=== PATIENT | female | born 1930 | race Caucasian/White ===

== ENCOUNTER 2017-07-08 20:16 | Inpatient (IN) | payer MEDICARE ==
[~2017-07-08 20:16] MED LIST: LATA0.002 EACH EYE; LEVO50TA4 PO; TIMO0.5S30 EACH EYE; ZITHTAB PO; morphine pump
[2017-07-08 20:23] VITALS: BP 153/69; PULSE 63; RESP 16; O2SAT 95
[2017-07-08 20:41] VITALS: O2SAT 100
[2017-07-08 20:55] LABS: AUTOMATED NEUTROPHIL # 7.6 TH/MM3 (1.8-7.7); BASOPHIL % 0.3 % (0.0-2.0); EOSINOPHIL # 0.4 TH/MM3 (0-0.4); EOSINOPHIL % 3.8 % (0.0-4.0); HEMATOCRIT 37.6 % (35.0-46.0); HEMOGLOBIN 12.7 GM/DL (11.6-15.3); LYMPH % 14.8 % (9.0-44.0); LYMPHOCYTE # 1.6 TH/MM3 (1.0-4.8); MEAN CELL VOLUME 96.8 FL (80.0-100.0); MEAN CORPUSCULAR HEMOGLOBIN 32.7 PG (27.0-34.0); MEAN CORPUSCULAR HGB CONC 33.8 % (32.0-36.0); MEAN PLATELET VOLUME 6.8 FL (7.0-11.0); MONO % 9.4 % (0.0-8.0); NEUT % 71.7 % (16.0-70.0); PLATELET COUNT 313 TH/MM3 (150-450); RED BLOOD COUNT 3.89 MIL/MM3 (4.00-5.30); RED CELL DISTRIBUTION WIDTH 13.8 % (11.6-17.2); WHITE BLOOD COUNT 10.7 TH/MM3 (4.0-11.0)
[2017-07-08 21:15] LABS: ALKALINE PHOSPHATASE 68 U/L (45-117); TOTAL BILIRUBIN ADULT 0.4 MG/DL (0.2-1.0)
[2017-07-08 21:18] LABS: ALBUMIN 2.8 GM/DL (3.4-5.0); ALT (GPT) 14 U/L (10-53); AST (GOT) 33 U/L (15-37); BICARBONATE 25.3 MEQ/L (21.0-32.0); BLOOD UREA NITROGEN 12 MG/DL (7-18); CALCIUM 8.3 MG/DL (8.5-10.1); CHLORIDE 105 MEQ/L (98-107); CREATININE 0.75 MG/DL (0.50-1.00); GLOMERULAR FILTRATION RATE 73 ML/MIN (>89); GLUCOSE,RANDOM 110 MG/DL (74-106); LIPASE 129 U/L (73-393); SODIUM (NA) 136 MEQ/L (136-145)
--- NOTE | 2017-07-08 21:27 | PD ---
HPI Chief Complaint: Abdominal Pain Time Seen by Provider: 21:25 Travel History International Travel<30 days: No Contact w/Intl Traveler<30days: No Traveled to known affect area: No History of Present Illness HPI 86-year-old female with PMH of chronic back pain 2/2 osteoarthritis, implanted pain pump presents to the ED for evaluation of around 2 hour history of nausea and vomiting. Patient's family is at bedside and helps to provide the history. Patient ate eggs for breakfast but has had little appetite throughout the course of the day. The family endorse several episodes of bilious vomiting before arrival. On presentation the patient complains of nausea but denies fever, chills, chest pain, shortness of breath, abdominal pain, dysuria, changes in bowel habits. She states that she had a bowel movement a few hours before arrival. She describes this as normal, nonbloody. She denies fever, chills, dysuria, hematuria. She denies history of abdominal surgery. PFSH Past Medical History Arthritis: Yes Blood Disorders: No Anxiety: No Heart Rhythm Problems: No Cancer: No Cardiac Catheterization: No Cardiovascular Problems: No High Cholesterol: No Congestive Heart Failure: No Diabetes: No Diminished Hearing: Yes (R EAR) Endocrine: Yes Gastrointestinal Disorders: No Glaucoma: Yes Genitourinary: No Headaches: Yes Heparin Induced Thrombocytopen: No Hypertension: No Immune Disorder: No Implanted Vascular Access Dvce: Yes Musculoskeletal: Yes Neurologic: No Psychiatric: No Reproductive: No Respiratory: No Migraines: Yes Myocardial Infarction: No Thyroid Disease: Yes (hypothyroidism) Menopausal: Yes Past Surgical History AICD: No Appendectomy: Yes ("WHEN I HAD MY HYSTERECTOMY") Arteriovenous Shunt: No Coronary Artery Bypass Graft: No Eye Surgery: Yes (BILATERAL CATARACTS REMOVED) Gynecologic Surgery: Yes (PARTIAL HYSTERECTOMY/APPENDECTOMY) Hysterectomy: Yes ("PARTIAL, IN MY 40'S") Insulin Pump: No Joint Replacement: No Pacemaker: No Other Surgery: Yes ( BILATERALY CORNEA IMPLANTS PER PT) Family History Family Myocardial Infarction: No Social History Alcohol Use: No Tobacco Use: No Substance Use: No Allergies-Medications (Allergen,Severity, Reaction): Coded Allergies: cefuroxime (Unverified Allergy, Severe, 07/08/17) latex (Unverified Allergy, Severe, "RASH", 07/08/17) penicillin G (Unverified Allergy, Severe, "RASH AND HEADACHE", 07/08/17) tetanus toxoid, adsorbed (Unverified Allergy, Severe, PT DOESN'T KNOW, ) hydrocodone (Unverified Allergy, Mild, Nausea/Vomiting, 07/08/17) propoxyphene (Unverified Allergy, Mild, 07/08/17) acetaminophen (Unverified Allergy, Unknown, 07/08/17) pt denies alendronate sodium (Unverified Allergy, Unknown, 07/08/17) cetirizine (Unverified Allergy, Unknown, 07/08/17) ciprofloxacin (Unverified Allergy, Unknown, 07/08/17) nitrofurantoin (Unverified Allergy, Unknown, 07/08/17) oxycodone (Unverified Allergy, Unknown, 07/08/17) pentazocine (Unverified Allergy, Unknown, 07/08/17) Uncoded Allergies: maxaquin (Allergy, Severe, unknown, 02/24/12) nausea & vomiting (Allergy, Intermediate, Nausea/Vomiting, 02/27/12) Reported Meds & Prescriptions Reported Meds & Active Scripts Active Reported [morphine pump] Levothyroxine (Levothyroxine Sodium) 50 Mcg Tab 50 Mcg PO DAILY Latanoprost Opth Drops (Latanoprost) 0.005% Drops 1 Drop EACH EYE HS Refrigerate until opened. Timolol Opth Drops 0.5 % Soln 1 Drop EACH EYE BID Review of Systems Except as stated in HPI: all other systems reviewed are Neg Physical Exam Narrative GENERAL: Frail, ill-appearing elderly white female in no acute distress. SKIN: Focused skin assessment warm/dry. HEAD: Normocephalic. EYES: No scleral icterus. No injection or drainage. NECK: Supple, trachea midline. No JVD or lymphadenopathy. CARDIOVASCULAR: Regular rate and rhythm without murmurs, gallops, or rubs. RESPIRATORY: Breath sounds clear and equal bilaterally. No accessory muscle use. GASTROINTESTINAL: Abdomen soft, nondistended. Tender to palpation in the right upper quadrant. MUSCULOSKELETAL: No cyanosis, or edema. BACK: Kyphotic. No midline tenderness. No CVA tenderness. Data Data Last Documented VS Vital Signs Date Time Temp Pulse Resp B/P (MAP) Pulse Ox O2 Delivery O2 Flow Rate FiO2 07/08/17 20:41 100 Room Air 07/08/17 20:23 63 16 153/69 (97) Orders Orders Complete Blood Count With Diff (07/08/17 20:30) Comprehensive Metabolic Panel (07/08/17 20:30) Urinalysis - C+S If Indicated (07/08/17 20:30) Cath For Specimen (07/08/17 20:30) Iv Access Insert/Monitor (07/08/17 20:30) Oxygen Administration (07/08/17 20:30) Oximetry (07/08/17 20:30) Lipase (07/08/17 20:30) Ct Abd/Pel W Iv Contrast(Rout) (07/08/17 21:23) Ondansetron Inj (Zofran Inj) (07/08/17 21:30) Sodium Chlorid 0.9% 500 Ml Inj (Ns 500 M (07/08/17 21:30) Iohexol 350 Inj (Omnipaque 350 Inj) (07/08/17 22:20) Influenzae A/B Antigen (07/08/17 22:49) Labs Laboratory Tests Test 07/08/17 20:40 07/08/17 22:14 White Blood Count 10.7 TH/MM3 Red Blood Count 3.89 MIL/MM3 Hemoglobin 12.7 GM/DL Hematocrit 37.6 % Mean Corpuscular Volume 96.8 FL Mean Corpuscular Hemoglobin 32.7 PG Mean Corpuscular Hemoglobin Concent 33.8 % Red Cell Distribution Width 13.8 % Platelet Count 313 TH/MM3 Mean Platelet Volume 6.8 FL Neutrophils (%) (Auto) 71.7 % Lymphocytes (%) (Auto) 14.8 % Monocytes (%) (Auto) 9.4 % Eosinophils (%) (Auto) 3.8 % Basophils (%) (Auto) 0.3 % Neutrophils # (Auto) 7.6 TH/MM3 Lymphocytes # (Auto) 1.6 TH/MM3 Monocytes # (Auto) 1.0 TH/MM3 Eosinophils # (Auto) 0.4 TH/MM3 Basophils # (Auto) 0.0 TH/MM3 CBC Comment DIFF FINAL Differential Comment Blood Urea Nitrogen 12 MG/DL Creatinine 0.75 MG/DL Random Glucose 110 MG/DL Total Protein 7.0 GM/DL Albumin 2.8 GM/DL Calcium Level 8.3 MG/DL Alkaline Phosphatase 68 U/L Aspartate Amino Transf (AST/SGOT) 33 U/L Alanine Aminotransferase (ALT/SGPT) 14 U/L Total Bilirubin 0.4 MG/DL Sodium Level 136 MEQ/L Potassium Level 4.5 MEQ/L Chloride Level 105 MEQ/L Carbon Dioxide Level 25.3 MEQ/L Anion Gap 6 MEQ/L Estimat Glomerular Filtration Rate 73 ML/MIN Lipase 129 U/L Urine Color YELLOW Urine Turbidity CLEAR Urine pH 7.0 Urine Specific [place] 1.026 Urine Protein NEG mg/dL Urine Glucose (UA) NEG mg/dL Urine Ketones NEG mg/dL Urine Occult Blood NEG Urine Nitrite NEG Urine Bilirubin NEG Urine Urobilinogen LESS THAN 2.0 MG/DL Urine Leukocyte Esterase NEG Urine RBC 4 /hpf Urine WBC 2 /hpf Urine Mucus FEW /lpf Microscopic Urinalysis Comment CULT NOT INDICATED MDM Medical Decision Making Medical Screen Exam Complete: Yes Emergency Medical Condition: Yes Differential Diagnosis Cholecystitis versus appendicitis versus bowel obstruction versus GERD versus gastroenteritis versus other Narrative Course 86-year-old female with PMH of chronic back pain 2/2 osteoarthritis, implanted pain pump presents to the ED for evaluation of around 2 hour history of nausea and vomiting. Patient's family is at bedside and helps to provide the history. Patient ate eggs for breakfast but has had little appetite throughout the course of the day. The family endorse several episodes of bilious vomiting before arrival. She states that she had a bowel movement a few hours before arrival. She describes this as normal, nonbloody. No history of abdominal surgery. Vitals reviewed. Physical exam reveals a frail, ill appearing elderly white female in no acute distress. She has had some right upper quadrant tenderness but the exam is otherwise unremarkable. IV was established. Patient was administered 4 mg Zofran and 1/2 L normal saline IV. CBC: No leukocytosis or anemia. CMP: BUN 12, creatinine 0.75. UA: No culture indicated. CT abdomen: Mild sigmoid diverticulosis. No acute findings per radiology read. Rapid flu swab: pending On recheck patient states that her nausea has not resolved. Family states that she has not returned to her baseline. Dr. Palomino evaluated the patient. He recommended checking a flu swab and observation overnight. Family is agreeable with this plan. I discussed the patient with Dr. Eastman who agrees to accept the patient to the medicine service. Please see medicine notes for disposition. Referrals: Primary Care Physician Patient Instructions: General Instructions Lyly Marina Jul 08, 2017 21:27
[2017-07-08] MEDS ORDERED: ONDANSETRON HCL 4 MG/2 ML VIAL IVP ONE (21:30)
[2017-07-08] MEDS ORDERED: SODIUM CHLORID 0.9% 500 ML INJ 500 ML IV ONE (21:30)
[2017-07-08] MEDS ORDERED: IOHEXOL 350 MG/ML 10 ML VIAL (for RAD DIAG) IVCONTRAST ONE (22:20)
--- NOTE | 2017-07-08 22:26 | RADRPT ---
EXAM DATE/TIME: 07/08/2017 21:50 [facility] COMPARISON: CT PELVIS W/O CONTRAST, January 25, 2015, 2:52. INDICATIONS : Right upper abdomen pain. IV CONTRAST: 100 cc Omnipaque 350 (iohexol) IV ORAL CONTRAST: No oral contrast ingested. RADIATION DOSE: 9.96 CTDIvol (mGy) MEDICAL HISTORY : Hypothyroidism. SURGICAL HISTORY : Appendectomy. Hysterectomy. ENCOUNTER: Initial ACUITY: 1 day PAIN SCALE: 5/10 LOCATION: Right upper quadrant TECHNIQUE: Volumetric scanning of the abdomen and pelvis was performed. Using automated exposure control and ad justment of the mA and/or kV according to patient size, radiation dose was kept as low as reasonably achievable to obtain optimal diagnostic quality images. DICOM format image data is available electro nically for review and comparison. FINDINGS: LOWER LUNGS: The visualized lower lungs are clear. LIVER: Homogeneous density without lesion. There is no dilation of the biliary tree. No calcified gallston es. SPLEEN: Normal size without lesion. PANCREAS: Largely fatty-replaced but otherwise grossly unremarkable. KIDNEYS: Kidneys demonstrate symmetrical enhancement without evidence for hydronephrosis or be opaque renal ca lculi. Significant renal mass. ADRENAL GLANDS: Within normal limits. VASCULAR: Tortuous with a prostatic calcifications. No aneurysm. BOWEL/MESENTERY: Mild sigmoid diverticulosis. Bowel otherwise appears unremarkable without evidence for obstruction. N o significant free fluid within the fluid collection in the abdomen. ABDOMINAL WALL: Within normal limits. RETROPERITONEUM: There is no lymphadenopathy. BLADDER: No wall thickening or mass. REPRODUCTIVE: There is a 4.0 x 4.2 cm enhancing structure in the expected region of the cervix/distal vagina. Evalu ation is somewhat limited by beam hardening artifact from patient's right hip arthroplasty. More brenda te comparison CT examination does not demonstrate a similar soft tissue density. INGUINAL: There is no lymphadenopathy or hernia. MUSCULOSKELETAL: Right hip arthroplasty in place. Healed pelvic fractures. Significant degenerative change about the l eft hip. Degenerative stenosis of the lumbar spine. CONCLUSION: 1. No acute CT abnormality in the abdomen or pelvis. 2. 4.0 x 4.2 cm enhancing structure in the expected region of the cervix/distal vagina. This is incom pletely evaluated due to streak artifact from adjacent hip arthroplasty. Suspect this represents resi dual tissue in this patient with the history of hysterectomy. Clinical correlation is recommended. 3. Mild sigmoid diverticulosis. 1. Danny Bozorgmanesh, MD on July 08, 2017 at 22:12 Board Certified Radiologist. This report was verified electronically.
[2017-07-08 22:30] LABS: BILIRUBIN, URINE NEG (NEG); BLOOD, URINE NEG (NEG); GLUCOSE,URINE NEG (NEG); KETONE, URINE NEG (NEG); MUCUS URINE FEW /lpf (OCC); NITRITE,URINE NEG (NEG); URINE COLOR YELLOW (YELLW/STRAW); URINE LEUKOCYTE ESTERASE NEG (NEG)
[2017-07-08] MEDS ORDERED: PROCHLORPERAZINE INJ 10 MG/2 ML VIAL IV PUSH ONE (23:15)
[2017-07-08] MEDS ORDERED: SODIUM CHLOR 0.9% 1000 ML INJ 1,000 ML IV SCH (23:15)
--- NOTE | 2017-07-08 23:40 | PD ---
Data Data Last Documented VS Vital Signs Date Time Temp Pulse Resp B/P (MAP) Pulse Ox O2 Delivery O2 Flow Rate FiO2 07/08/17 20:41 100 Room Air 07/08/17 20:23 63 16 153/69 (97) Orders Orders Complete Blood Count With Diff (07/08/17 20:30) Comprehensive Metabolic Panel (07/08/17 20:30) Urinalysis - C+S If Indicated (07/08/17 20:30) Cath For Specimen (07/08/17 20:30) Iv Access Insert/Monitor (07/08/17 20:30) Oxygen Administration (07/08/17 20:30) Oximetry (07/08/17 20:30) Lipase (07/08/17 20:30) Ct Abd/Pel W Iv Contrast(Rout) (07/08/17 21:23) Ondansetron Inj (Zofran Inj) (07/08/17 21:30) Sodium Chlorid 0.9% 500 Ml Inj (Ns 500 M (07/08/17 21:30) Iohexol 350 Inj (Omnipaque 350 Inj) (07/08/17 22:20) Influenzae A/B Antigen (07/08/17 22:49) Admit Order (Ed Use Only) (07/08/17 23:05) Labs Laboratory Tests Test 07/08/17 20:40 07/08/17 22:14 White Blood Count 10.7 TH/MM3 Red Blood Count 3.89 MIL/MM3 Hemoglobin 12.7 GM/DL Hematocrit 37.6 % Mean Corpuscular Volume 96.8 FL Mean Corpuscular Hemoglobin 32.7 PG Mean Corpuscular Hemoglobin Concent 33.8 % Red Cell Distribution Width 13.8 % Platelet Count 313 TH/MM3 Mean Platelet Volume 6.8 FL Neutrophils (%) (Auto) 71.7 % Lymphocytes (%) (Auto) 14.8 % Monocytes (%) (Auto) 9.4 % Eosinophils (%) (Auto) 3.8 % Basophils (%) (Auto) 0.3 % Neutrophils # (Auto) 7.6 TH/MM3 Lymphocytes # (Auto) 1.6 TH/MM3 Monocytes # (Auto) 1.0 TH/MM3 Eosinophils # (Auto) 0.4 TH/MM3 Basophils # (Auto) 0.0 TH/MM3 CBC Comment DIFF FINAL Differential Comment Blood Urea Nitrogen 12 MG/DL Creatinine 0.75 MG/DL Random Glucose 110 MG/DL Total Protein 7.0 GM/DL Albumin 2.8 GM/DL Calcium Level 8.3 MG/DL Alkaline Phosphatase 68 U/L Aspartate Amino Transf (AST/SGOT) 33 U/L Alanine Aminotransferase (ALT/SGPT) 14 U/L Total Bilirubin 0.4 MG/DL Sodium Level 136 MEQ/L Potassium Level 4.5 MEQ/L Chloride Level 105 MEQ/L Carbon Dioxide Level 25.3 MEQ/L Anion Gap 6 MEQ/L Estimat Glomerular Filtration Rate 73 ML/MIN Lipase 129 U/L Urine Color YELLOW Urine Turbidity CLEAR Urine pH 7.0 Urine Specific [place] 1.026 Urine Protein NEG mg/dL Urine Glucose (UA) NEG mg/dL Urine Ketones NEG mg/dL Urine Occult Blood NEG Urine Nitrite NEG Urine Bilirubin NEG Urine Urobilinogen LESS THAN 2.0 MG/DL Urine Leukocyte Esterase NEG Urine RBC 4 /hpf Urine WBC 2 /hpf Urine Mucus FEW /lpf Microscopic Urinalysis Comment CULT NOT INDICATED MDM Supervised Visit with JOSE D: Yes Narrative Course The history, exam, and medical decision-making in the associated mid-level provider note were completed with my assistance. I reviewed and agree with the findings presented. I attest that I had a [id number] encounter with the patient on the same day, and personally performed and documented my assessment and findings in the medical record. *My assessment and Findings: Elderly 86 year-old woman, here with nausea vomiting. Looks a little bit unwell. Still retching some in the room. Initial workups negative. High risk for occult disease. Still symptomatic. Recommend observation. Diagnosis Primary Impression: Nausea & vomiting Qualified Codes: R11.2 - Nausea with vomiting, unspecified Admitting Information Admitting Physician Requests: Observation Referrals: Primary Care Physician Kane Palomino MD Jul 08, 2017 23:40
[2017-07-09 01:33] VITALS: BP 146/66; PULSE 74; RESP 20; TEMP 98.1; O2SAT 94
[2017-07-09 05:56] VITALS: BP 141/74; PULSE 67; RESP 18; TEMP 98.5; O2SAT 95
[2017-07-09 07:14] VITALS: BP 165/76; PULSE 79; RESP 18; TEMP 98.1; O2SAT 95
[2017-07-09] MEDS: LEVOTHYROXINE SODIUM 50 MCG TAB PO SCH (09:10)
--- NOTE | 2017-07-09 09:29 | HHI.HP ---
HPI Service [facility] Hospitalists Primary Care Physician Michael Daigle MD Admission Diagnosis cough, vomiting, diarrhea. Chief Complaint: Cough Travel History International Travel<30 Days: No Contact w/Intl Traveler <30 Da: No Traveled to Known Affected Are: No History of Present Illness Mrs. Rene is a pleasant 86 y/o WF with chronic back pain with Morphine pump implant, hypothyroidism and hyperlipidemia. [place] [facility] [place] of a cough and episodic post-tussive cough. Her daughter provides the majority of the history and she reports that the pt was in her normal state of health up until around 7:00PM last night when she developed a cough. This was not associated with food intake but her daughter reports that the pt does occasionally have issues with choking easily while eating. The pt denies any sore throat, sinus congestion, SOB or palpitations. In the ED there reported that the pts main complaint was that of nausea and vomiting. a CT Abd/ pelvis was ordered which did not she any acute CT abnormality in the abdomen or pelvis. It did note a 4.0 x 4.2 cm enhancing structure in the expected region of the cervix/distal vagina but this was incompletely evaluated due to streak artifact from adjacent hip arthroplasty, suspect this represents residual tissue in this patient with the history of hysterectomy. Pts labs at admission noted a normal WBC count. She has been afebrile. Nursing staff reports that the pt did have some diarrhea overnight and stools were sent for C. diff. The pt has had two BMs since 0700 this morning. The first one was reportedly more formed but the second one was more loose. Pts daughter reports that in late April 2017 the pt was treated for a presumed bronchitis with a Z-ivan x 2. The pt has not had any diarrhea up until last night. She has reportedly been having soft normal BMs. The pt has not had any vomiting overnight and family who has been at bedside since this morning said that the pt isn't really coughing much this morning so far. But she does states that the pt is not acting like her normal self in that she is usually very active and upbeat. Pt has not been interacting much and does not seem to want to move much out of med and her daughter states that this is very unusual for her. Pt complains of some mild abdominal discomfort on the right side of the abdomen but unable to describe this pain to me at all. Stool studies for C. diff are pending. Pt was given IVF and antiemetics in the ED overnight. Review of Systems Constitutional: DENIES: Fever, Chills Eyes: DENIES: Vision loss Ears, nose, mouth, throat: DENIES: Hearing loss Respiratory: COMPLAINS OF: Cough, Sputum production, DENIES: Shortness of breath Cardiovascular: DENIES: Chest pain, Palpitations, Dyspnea on Exertion, Lower Extremity Edema Gastrointestinal: COMPLAINS OF: Abdominal pain, Diarrhea, Vomiting, DENIES: Nausea Genitourinary: DENIES: Urgency, Hematuria Musculoskeletal: COMPLAINS OF: Back pain (chronic) Integumentary: DENIES: Rash Neurologic: DENIES: Headache Psychiatric: DENIES: Confusion Past Family Social History Past Medical History 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 Timolol Opth Drops 0.5 % Soln 1 Drop EACH EYE BID Allergies: Coded Allergies: cefuroxime (Unverified Allergy, Severe, 07/08/17) latex (Unverified Allergy, Severe, "RASH", 07/08/17) penicillin G (Unverified Allergy, Severe, "RASH AND HEADACHE", 07/08/17) tetanus toxoid, adsorbed (Unverified Allergy, Severe, PT DOESN'T KNOW, ) hydrocodone (Unverified Allergy, Mild, Nausea/Vomiting, 07/08/17) propoxyphene (Unverified Allergy, Mild, 07/08/17) acetaminophen (Unverified Allergy, Unknown, 07/08/17) pt denies alendronate sodium (Unverified Allergy, Unknown, 07/08/17) cetirizine (Unverified Allergy, Unknown, 07/08/17) ciprofloxacin (Unverified Allergy, Unknown, 07/08/17) nitrofurantoin (Unverified Allergy, Unknown, 07/08/17) oxycodone (Unverified Allergy, Unknown, 07/08/17) pentazocine (Unverified Allergy, Unknown, 07/08/17) Uncoded Allergies: maxaquin (Allergy, Severe, unknown, 02/24/12) nausea & vomiting (Allergy, Intermediate, Nausea/Vomiting, 02/27/12) Family History Noncontributory Social History No reported tobacco or EtOH use. Pt lives at home with her , her daughter lives with them and takes care of them Pt normally uses a wheelchair to get around because she is scared of falling again but her daughter reports that she is still very active and scoots around the house in the wheel chair, pt helps with cooking and cleaning around the house Physical Exam Vital Signs Vital Signs Date Time Temp Pulse Resp B/P (MAP) Pulse Ox O2 Delivery O2 Flow Rate FiO2 07/09/17 07:14 98.1 79 18 165/76 (105) 95 07/09/17 05:56 98.5 67 18 141/74 (96) 95 07/09/17 01:33 98.1 74 20 146/66 (92) 94 07/08/17 20:41 100 Room Air 07/08/17 20:41 100 Room Air 07/08/17 20:23 63 16 153/69 (97) 95 Physical Exam GENERAL: This is a well-nourished, well-developed patient, in no apparent distress. SKIN: No rashes, ecchymoses or lesions. Cool and dry. HEENT: Atraumatic. Normocephalic. No temporal or scalp tenderness. No scleral icterus. Airway patent. NECK: Trachea midline, supple, nontender. CARDIO: Regular. RESP: Crackles at the bases bilaterally. No wheezing ABD: +BS, soft, non-tender, nondistended. EXT: Extremities without clubbing, cyanosis, or edema. NEURO: Awake and alert. Motor and sensory grossly within normal limits. Normal speech. Laboratory Laboratory Tests Test 07/08/17 20:40 07/08/17 22:14 07/09/17 05:40 White Blood Count 10.7 Red Blood Count 3.89 Hemoglobin 12.7 Hematocrit 37.6 Mean Corpuscular Volume 96.8 Mean Corpuscular Hemoglobin 32.7 Mean Corpuscular Hemoglobin Concent 33.8 Red Cell Distribution Width 13.8 Platelet Count 313 Mean Platelet Volume 6.8 Neutrophils (%) (Auto) 71.7 Lymphocytes (%) (Auto) 14.8 Monocytes (%) (Auto) 9.4 Eosinophils (%) (Auto) 3.8 Basophils (%) (Auto) 0.3 Neutrophils # (Auto) 7.6 Lymphocytes # (Auto) 1.6 Monocytes # (Auto) 1.0 Eosinophils # (Auto) 0.4 Basophils # (Auto) 0.0 CBC Comment DIFF FINAL Differential Comment Blood Urea Nitrogen 12 Creatinine 0.75 Random Glucose 110 Total Protein 7.0 Albumin 2.8 Calcium Level 8.3 Alkaline Phosphatase 68 Aspartate Amino Transf (AST/SGOT) 33 Alanine Aminotransferase (ALT/SGPT) 14 Total Bilirubin 0.4 Sodium Level 136 Potassium Level 4.5 Chloride Level 105 Carbon Dioxide Level 25.3 Anion Gap 6 Estimat Glomerular Filtration Rate 73 Lipase 129 Urine Color YELLOW Urine Turbidity CLEAR Urine pH 7.0 Urine Specific [place] 1.026 Urine Protein NEG Urine Glucose (UA) NEG Urine Ketones NEG Urine Occult Blood NEG Urine Nitrite NEG Urine Bilirubin NEG Urine Urobilinogen LESS THAN 2.0 Urine Leukocyte Esterase NEG Urine RBC 4 Urine WBC 2 Urine Mucus FEW Microscopic Urinalysis Comment CULT NOT INDICATED Date/Time Source Procedure Growth Status 07/08/17 23:00 Nasal Washing Influenza Types A,B Antigen (AZAR) - Final NEGATIVE FOR FLU A AND B ANTIGEN.... Complete Result Diagram: 07/08/17203907/08/172039 Imaging Last Impressions Abdomen/Pelvis CT 07/08/172122 Signed Impressions: Service Date/Time: Saturday, July 08, 2017 21:50 - CONCLUSION: 1. No acute CT abnormality in the abdomen or pelvis. 2. 4.0 x 4.2 cm enhancing structure in the expected region of the cervix/distal vagina. This is incompletely evaluated due to streak artifact from adjacent hip arthroplasty. Suspect this represents residual tissue in this patient with the history of hysterectomy. Clinical correlation is recommended. 3. Mild sigmoid diverticulosis. 1. MD Radha Fuentes VTE Risk Assessment Tyronrin[place]ise VTE Risk Assessment: Mod/High Risk (score >= 2) Caprini Risk Assessment Model Point Value = 1 Point Value = 2 Point Value = 3 Point Value = 5 Age 41-60 Minor surgery BMI > 25 kg/m2 Swollen legs Varicose veins or History of unexplained or recurrent spontaneous Oral contraceptives or hormone replacement Sepsis (< 1 month) Serious lung disease, including pneumonia (< 1 month) Abnormal pulmonary function Acute myocardial infarction Congestive heart failure (< 1 month) History of inflammatory bowel disease Medical patient at bed rest Age 61-74 Arthroscopic surgery Major open surgery (> 45 min) Laparoscopic surgery (> 45 min) Malignancy Confined to bed (> 72 hours) Immobilizing plaster cast Central venous access Age >= 75 History of VTE Family history of VTE Factor V Leiden Prothrombin [id number] Lupus anticoagulant Anticardiolipin antibodies Elevated serum homocysteine Heparin-induced thrombocytopenia Other congenital or acquired thrombophilia Stroke (< 1 month) Elective arthroplasty Hip, pelvis, or leg fracture Acute spinal cord injury (< 1 month) Prophylaxis Regimen Total Risk Factor Score Risk Level Prophylaxis Regimen 0-1 Low Early ambulation 2 Moderate Order ONE of the following: *Sequential Compression Device (SCD) *Heparin 5000 units SQ BID 3-4 Higher Order ONE of the following medications: *Heparin 5000 units SQ TID *Enoxaparin/Lovenox 40 mg SQ daily (WT < 150 kg, CrCl > 30 mL/min) *Enoxaparin/Lovenox 30 mg SQ daily (WT < 150 kg, CrCl > 10-29 mL/min) *Enoxaparin/Lovenox 30 mg SQ BID (WT < 150 kg, CrCl > 30 mL/min) AND/OR *Sequential Compression Device (SCD) 5 or more Highest Order ONE of the following medications: *Heparin 5000 units SQ TID (Preferred with Epidurals) *Enoxaparin/Lovenox 40 mg SQ daily (WT < 150 kg, CrCl > 30 mL/min) *Enoxaparin/Lovenox 30 mg SQ daily (WT < 150 kg, CrCl > 10-29 mL/min) *Enoxaparin/Lovenox 30 mg SQ BID (WT < 150 kg, CrCl > 30 mL/min) AND *Sequential Compression Device (SCD) Assessment and Plan Problem List: (1) Cough ICD Codes: R05 - Cough Status: Acute Plan: -Pt is an 86 y/o WF with chronic back pain with Morphine pump implant, hypothyroidism and hyperlipidemia. Pt presented to the ED at [facility] on 07/08/17 with complaints of a cough and episodic post-tussive cough. Her daughter reports that the pt was in her normal state of health up until around 7:00PM last night when she developed a cough. This was not associated with food intake but her daughter reports that the pt does occasionally have issues with choking easily while eating. The pt denies any sore throat, sinus congestion, SOB or palpitations. Cough, new onset Post-tussive vomiting - In the ED there reported that the pts main complaint was that of nausea and vomiting. - CT Abd/pelvis (07/08) --> No acute CT abnormality in the abdomen or pelvis. It did note a 4.0 x 4.2 cm enhancing structure in the expected region of the cervix/distal vagina but this was' incompletely evaluated due to streak artifact from adjacent hip arthroplasty , suspect this represents residual tissue in this patient with the history of hysterectomy. - Pts labs at admission noted a normal WBC count. She has been afebrile. - Check CXR this morning - Hold off an any antibiotics at this time - IS - Repeat labs in AM - PT evaluation - Monitor vitals and continue supportive care Diarrhea Abdominal pain - Nursing staff reports that the pt did have some diarrhea overnight and stools were sent for C. diff and are pending. - Pt was treated recently for bronchitic in 05/2017 with Z-ivan x 2 - Pt was given IVF and antiemetics in the ED overnight. - IV to be replaced this morning - Cont. IVF - Cont. Antiemetics PRN - Await stool studies Hypothyroidism - Cont. home meds ADDENDUM: - At time of re-evaluation int he afternoon, pt has had multiple loose stools and had an episode of vomiting while we were in the room - She has continued to have coughing and CXR with mild patchy LLL infiltrate. - We will start Azithromycin IV - Check stool culture. Her C. diff was negative. - After stool culture send out ok to give Imodium PRN - Check Abd US as she complains of some nonspecific abdominal pain. - Cont. IVF (2) Post-tussive vomiting ICD Codes: R11.10 - Vomiting, unspecified Status: Acute (3) Diarrhea ICD Codes: R19.7 - Diarrhea, unspecified Status: Acute (4) Hypothyroid ICD Codes: E03.9 - Hypothyroid Status: Chronic (5) Chronic pain ICD Codes: G89.29 - Chronic pain Status: Chronic Assessment and Plan Patient examined. Assessment and plan formulated with Samantha Luna PA-C. I agree with the above. abdomen cramps. diarrhea. no c.diff. possible left lung pna cont abx. stool cx. antiemetic. pt vomited while I was present ruq u/s. ivf. admit. Samantha Luna Jul 09, 2017 09:29 Black Hernandez MD Jul 09, 2017 15:01
[2017-07-09] MEDS: TIMOLOL MALEATE 0.5% OPHT SOLN 5 ML BTL EACH EYE SCH ×2 (10:37→21:00)
[2017-07-09 11:05] LABS: AUTOMATED NEUTROPHIL # 8.4 TH/MM3 (1.8-7.7); BASOPHIL % 0.2 % (0.0-2.0); HEMATOCRIT 40.3 % (35.0-46.0); HEMOGLOBIN 13.4 GM/DL (11.6-15.3); LYMPH % 12.2 % (9.0-44.0); LYMPHOCYTE # 1.2 TH/MM3 (1.0-4.8); MEAN CELL VOLUME 95.6 FL (80.0-100.0); MEAN CORPUSCULAR HEMOGLOBIN 31.8 PG (27.0-34.0); MEAN CORPUSCULAR HGB CONC 33.3 % (32.0-36.0); MEAN PLATELET VOLUME 6.4 FL (7.0-11.0); MONO % 5.8 % (0.0-8.0); MONOCYTE # 0.6 TH/MM3 (0-0.9); NEUT % 81.8 % (16.0-70.0); PLATELET COUNT 319 TH/MM3 (150-450); RED BLOOD COUNT 4.22 MIL/MM3 (4.00-5.30); RED CELL DISTRIBUTION WIDTH 13.8 % (11.6-17.2); WHITE BLOOD COUNT 10.2 TH/MM3 (4.0-11.0)
[2017-07-09 11:17] LABS: BICARBONATE 26.4 MEQ/L (21.0-32.0); CREATININE 0.88 MG/DL (0.50-1.00)
[2017-07-09 11:31] VITALS: BP 160/77; PULSE 66; RESP 20; TEMP 98; O2SAT 95
--- NOTE | 2017-07-09 12:30 | RADRPT ---
EXAM DATE/TIME: 07/09/2017 12:11 [facility] COMPARISON: CHEST SINGLE AP, May 10, 2017, 17:31. INDICATIONS : Cough MEDICAL HISTORY : Hypothyroidism. SURGICAL HISTORY : Appendectomy. Hysterectomy. ENCOUNTER: Initial ACUITY: 2 days PAIN SCORE: 0/10 LOCATION: chest FINDINGS: PA and lateral views of the chest demonstrates a mild patchy infiltrate in the left lower lung. The r ight lung is grossly clear. There are chronic interstitial changes bilaterally are stable compared to the prior study. The heart size is unchanged. There are no pleural effusions. The bony structures ar e stable.. CONCLUSION: Mild patchy infiltrate in the left lower lung. Fer Tapia MD on July 09, 2017 at 12:27 Board Certified Radiologist. This report was verified electronically.
[2017-07-09] MEDS ORDERED: cloNIDine HCL 0.1 MG TAB PO PRN (15:00)
[2017-07-09] MEDS ORDERED: LOPERAMIDE HCL 2 MG CAP PO PRN (15:15)
[2017-07-09] MEDS: ONDANSETRON HCL 4 MG/2 ML VIAL IV PUSH PRN (15:24)
[2017-07-09] MEDS: SODIUM CHLOR 0.9% 1000 ML INJ 1,000 ML IV SCH ×3 (15:24→20:05)
[2017-07-09] MEDS: AZITHROMYCIN INJ 500 MG in SODIUM CHLOR 0.9% 250 ML INJ 250 ML IV SCH (15:39)
[2017-07-09 17:02] VITALS: BP 161/71; PULSE 67; RESP 16; TEMP 98; O2SAT 96
--- NOTE | 2017-07-09 19:36 | RADRPT ---
EXAM DATE/TIME: 07/09/2017 18:39 [facility] COMPARISON: No previous studies available for comparison. INDICATIONS : Abdominal pain. MEDICAL HISTORY : Arthritis. Osteoporosis. Glaucoma. Migraine. Sputum production. Prolapsed rectum. SURGICAL HISTORY : Appendectomy. Hysterectomy. Bilateral cataracts removed with lens implants. Right knee and hip surg james. ENCOUNTER: Initial ACUITY: 1 day PAIN SCORE: 5/10 LOCATION: Abdomen. MEASUREMENTS: LIVER: 12.0 cm length COMMON DUCT: 3 mm RIGHT KIDNEY: 9.7 x 3.7 x 3.7 cm LEFT KIDNEY: 8.1 x 4.2 cm SPLEEN: 5.9 cm length AORTA: 1.8cm maximal FINDINGS: LIVER: Normal echotexture without focal lesion or ductal dilatation. COMMON DUCT: No intraluminal mass or stone visualized. GALLBLADDER: Contains no stones, demonstrates no wall thickening or pericholecystic fluid. PANCREAS: The visualized portions are within normal limits. RIGHT KIDNEY: No hydronephrosis, stone or mass. LEFT KIDNEY: No hydronephrosis, stone or mass. SPLEEN: No focal lesion. AORTA: Non aneurysmal. IVC: Within normal limits. CONCLUSION: Focal unremarkable sonographic appearance of the abdomen Randal Posey MD on July 09, 2017 at 19:32 Board Certified Radiologist. This report was verified electronically.
[2017-07-09] MEDS: LATANOPROST 0.005% OPHT SOLN 2.5 ML BTL EACH EYE SCH (21:00)
[2017-07-09 21:18] VITALS: BP 162/70; PULSE 62; RESP 18; TEMP 98.7; O2SAT 96
[2017-07-09] MEDS ORDERED: ACETAMINOPHEN 325 MG TAB PO PRN (23:15)
[2017-07-10] VITALS (8 sets, daily range): BP systolic 153–174; BP diastolic 66–87; PULSE 60–79; RESP 17–20; TEMP 97.3–98.6; O2SAT 93–96
[2017-07-10] MEDS: RESP: ALBUTEROL 2.5 MG/IPRATROPIUM 0.5 MG NEB (PRN) NEB ×2 (00:27→16:18)
[2017-07-10] MEDS: LORazepam 2 MG/ML VIAL IV PUSH PRN ×2 (01:27→08:04)
[2017-07-10] MEDS: LEVOTHYROXINE SODIUM 50 MCG TAB PO SCH (06:40)
[2017-07-10 07:21] LABS: AUTOMATED NEUTROPHIL # 9.6 TH/MM3 (1.8-7.7); BASOPHIL % 0.1 % (0.0-2.0); EOSINOPHIL % 0.1 % (0.0-4.0); HEMOGLOBIN 12.9 GM/DL (11.6-15.3); LYMPH % 11.4 % (9.0-44.0); LYMPHOCYTE # 1.4 TH/MM3 (1.0-4.8); MEAN CELL VOLUME 95.7 FL (80.0-100.0); MEAN CORPUSCULAR HEMOGLOBIN 32.5 PG (27.0-34.0); MEAN PLATELET VOLUME 6.8 FL (7.0-11.0); MONO % 10.6 % (0.0-8.0); MONOCYTE # 1.3 TH/MM3 (0-0.9); NEUT % 77.8 % (16.0-70.0); PLATELET COUNT 345 TH/MM3 (150-450); RED BLOOD COUNT 3.97 MIL/MM3 (4.00-5.30); RED CELL DISTRIBUTION WIDTH 13.6 % (11.6-17.2); WHITE BLOOD COUNT 12.4 TH/MM3 (4.0-11.0)
[2017-07-10 07:29] LABS: BICARBONATE 25.1 MEQ/L (21.0-32.0); CALCIUM 8.4 MG/DL (8.5-10.1); CREATININE 0.81 MG/DL (0.50-1.00); MAGNESIUM 2.1 MG/DL (1.5-2.5)
[2017-07-10] MEDS: TIMOLOL MALEATE 0.5% OPHT SOLN 5 ML BTL EACH EYE SCH ×2 (08:06→21:39)
--- NOTE | 2017-07-10 08:58 | HHI.PR ---
Subjective Remarks Pt was very agitated and confused overnight and was given Ativan last night and this morning. Nursing staff reports issues with swallowing her pills and is currently NPO and swallow evaluation is pending. No further diarrhea since Imodium was given Nursing staff reports the pt is urinating frequently but no complaints of dysuria and no foul smelling urine. Objective Vitals Vital Signs Date Time Temp Pulse Resp B/P (MAP) Pulse Ox O2 Delivery O2 Flow Rate FiO2 07/10/17 08:17 98.6 79 17 172/74 (106) 94 07/10/17 05:06 98.0 65 18 154/66 (95) 94 07/10/17 01:31 98.3 74 18 153/66 (95) 93 07/10/17 00:31 96 07/09/17 21:18 98.7 62 18 162/70 (100) 96 07/09/17 17:02 98.0 67 16 161/71 (101) 96 07/09/17 11:31 98.0 66 20 160/77 (104) 95 Result Diagram: 07/10/1761707/10/1718 Other Results Laboratory Tests Test 07/08/17 20:40 07/08/17 22:14 07/09/17 05:40 07/09/17 10:47 White Blood Count 10.7 TH/MM3 10.2 TH/MM3 Red Blood Count 3.89 MIL/MM3 4.22 MIL/MM3 Hemoglobin 12.7 GM/DL 13.4 GM/DL Hematocrit 37.6 % 40.3 % Mean Corpuscular Volume 96.8 FL 95.6 FL Mean Corpuscular Hemoglobin 32.7 PG 31.8 PG Mean Corpuscular Hemoglobin Concent 33.8 % 33.3 % Red Cell Distribution Width 13.8 % 13.8 % Platelet Count 313 TH/MM3 319 TH/MM3 Mean Platelet Volume 6.8 FL 6.4 FL Neutrophils (%) (Auto) 71.7 % 81.8 % Lymphocytes (%) (Auto) 14.8 % 12.2 % Monocytes (%) (Auto) 9.4 % 5.8 % Eosinophils (%) (Auto) 3.8 % 0.0 % Basophils (%) (Auto) 0.3 % 0.2 % Neutrophils # (Auto) 7.6 TH/MM3 8.4 TH/MM3 Lymphocytes # (Auto) 1.6 TH/MM3 1.2 TH/MM3 Monocytes # (Auto) 1.0 TH/MM3 0.6 TH/MM3 Eosinophils # (Auto) 0.4 TH/MM3 0.0 TH/MM3 Basophils # (Auto) 0.0 TH/MM3 0.0 TH/MM3 CBC Comment DIFF FINAL DIFF FINAL Differential Comment Blood Urea Nitrogen 12 MG/DL 15 MG/DL Creatinine 0.75 MG/DL 0.88 MG/DL Random Glucose 110 MG/DL 141 MG/DL Total Protein 7.0 GM/DL Albumin 2.8 GM/DL Calcium Level 8.3 MG/DL 9.0 MG/DL Alkaline Phosphatase 68 U/L Aspartate Amino Transf (AST/SGOT) 33 U/L Alanine Aminotransferase (ALT/SGPT) 14 U/L Total Bilirubin 0.4 MG/DL Sodium Level 136 MEQ/L 137 MEQ/L Potassium Level 4.5 MEQ/L 3.8 MEQ/L Chloride Level 105 MEQ/L 101 MEQ/L Carbon Dioxide Level 25.3 MEQ/L 26.4 MEQ/L Anion Gap 6 MEQ/L 10 MEQ/L Estimat Glomerular Filtration Rate 73 ML/MIN 61 ML/MIN Lipase 129 U/L Urine Color YELLOW Urine Turbidity CLEAR Urine pH 7.0 Urine Specific [place] 1.026 Urine Protein NEG mg/dL Urine Glucose (UA) NEG mg/dL Urine Ketones NEG mg/dL Urine Occult Blood NEG Urine Nitrite NEG Urine Bilirubin NEG Urine Urobilinogen LESS THAN 2.0 MG/DL Urine Leukocyte Esterase NEG Urine RBC 4 /hpf Urine WBC 2 /hpf Urine Mucus FEW /lpf Microscopic Urinalysis Comment CULT NOT INDICATED Stool C. difficile Toxin (PCR) NEGATIVE Stl C. difficile Toxin Epiderm 027 PRESUMPTIVE NEGATIVE Test 07/10/17 06:18 White Blood Count 12.4 TH/MM3 Red Blood Count 3.97 MIL/MM3 Hemoglobin 12.9 GM/DL Hematocrit 38.0 % Mean Corpuscular Volume 95.7 FL Mean Corpuscular Hemoglobin 32.5 PG Mean Corpuscular Hemoglobin Concent 34.0 % Red Cell Distribution Width 13.6 % Platelet Count 345 TH/MM3 Mean Platelet Volume 6.8 FL Neutrophils (%) (Auto) 77.8 % Lymphocytes (%) (Auto) 11.4 % Monocytes (%) (Auto) 10.6 % Eosinophils (%) (Auto) 0.1 % Basophils (%) (Auto) 0.1 % Neutrophils # (Auto) 9.6 TH/MM3 Lymphocytes # (Auto) 1.4 TH/MM3 Monocytes # (Auto) 1.3 TH/MM3 Eosinophils # (Auto) 0.0 TH/MM3 Basophils # (Auto) 0.0 TH/MM3 CBC Comment DIFF FINAL Differential Comment Blood Urea Nitrogen 15 MG/DL Creatinine 0.81 MG/DL Random Glucose 123 MG/DL Calcium Level 8.4 MG/DL Magnesium Level 2.1 MG/DL Sodium Level 137 MEQ/L Potassium Level 3.7 MEQ/L Chloride Level 103 MEQ/L Carbon Dioxide Level 25.1 MEQ/L Anion Gap 9 MEQ/L Estimat Glomerular Filtration Rate 67 ML/MIN Imaging Last Impressions Chest X-Ray 07/09/17 0000 Signed Impressions: Service Date/Time: June 12:11 - CONCLUSION: Mild patchy infiltrate in the left lower lung. Fer Tapia MD Abdomen Ultrasound 07/09/17 0000 Signed Impressions: Service Date/Time: June 18:39 - CONCLUSION: Focal unremarkable sonographic appearance of the abdomen Randal Posey MD Abdomen/Pelvis CT 07/08/172122 Signed Impressions: Service Date/Time: Saturday, July 08, 2017 21:50 - CONCLUSION: 1. No acute CT abnormality in the abdomen or pelvis. 2. 4.0 x 4.2 cm enhancing structure in the expected region of the cervix/distal vagina. This is incompletely evaluated due to streak artifact from adjacent hip arthroplasty. Suspect this represents residual tissue in this patient with the history of hysterectomy. Clinical correlation is recommended. 3. Mild sigmoid diverticulosis. 1. Danny Restrepo MD Objective Remarks General: NAD, resting comfortably Chest: Sonorous breath sounds bilaterally Cardiac: Regular Abd: +BS, soft ND/NT Ext: No edema A/P Problem List: (1) Cough ICD Codes: R05 - Cough Status: Acute Plan: -Pt is an 86 y/o WF with chronic back pain with Morphine pump implant, hypothyroidism and hyperlipidemia. Pt [place] [facility] [place] with complaints of a cough and episodic post-tussive cough. Her daughter reports that the pt was in her normal state of health up until around 7:00PM last night when she developed a cough. This was not associated with food intake but her daughter reports that the pt does occasionally have issues with choking easily while eating. The pt denies any sore throat, sinus congestion, SOB or palpitations. Cough, new onset, ?aspiration pneumonia vs. CAP Post-tussive vomiting - In the ED there reported that the pts main complaint was that of nausea and vomiting. - CT Abd/pelvis (07/08) --> No acute CT abnormality in the abdomen or pelvis. It did note a 4.0 x 4.2 cm enhancing structure in the expected region of the cervix/distal vagina but this was incompletely evaluated due to streak artifact from adjacent hip arthroplasty, suspect this represents residual tissue in this patient with the history of hysterectomy. - Pts labs at admission noted a normal WBC count. She has been afebrile. - Negative for Influenza - CXR (07/09) --> Mild patchy LLL infiltrate - Pt was started on Azithromycin IV for possible pneumonia - IS - Pt now with swallowing difficulties, pt is NPO and ST evaluation is pending. - She has been confused and agitated overnight requiring Ativan - Repeat labs in AM - PT evaluation - Monitor vitals and continue supportive care Diarrhea Abdominal pain - On 07/09 pt had multiple loose stools. Stool was negative for C. diff - Pt was treated recently for bronchitic in 05/2017 with Z-ivan x 2 - Pt was given IVF and antiemetics in the ED. - Cont. IVF as pt not eating or drinking much - Stool culture is pending. - Imodium PRN - Abdominal US (07/09) --> Focal unremarkable sonographic appearance of the abdomen - Cont. Antiemetics PRN - Await stool studies Hypothyroidism - Cont. home meds (2) Post-tussive vomiting ICD Codes: R11.10 - Vomiting, unspecified Status: Acute (3) Diarrhea ICD Codes: R19.7 - Diarrhea, unspecified Status: Acute (4) Hypothyroid ICD Codes: E03.9 - Hypothyroid Status: Chronic (5) Chronic pain ICD Codes: G89.29 - Chronic pain Status: Chronic Assessment and Plan Patient examined. Assessment and plan formulated with Samantha Luna PA-C. I agree with the above. possible pna/family confirms cough with meals at home so aspiration suspected. n/v/d stopped delirious and agitated overnight. she has memory problems at home and so sundowning suspected. f/u ct chest/brain. broaden abx but pt allergic to many things full code per at the moment. Samantha Luna Jul 10, 2017 08:58 Black Hernandez MD Jul 10, 2017 12:47
[2017-07-10] MEDS: AZTREONAM INJ 1,000 MG in SODIUM CHLORIDE 0.9% INJ 100 ML IV SCH ×2 (12:00→21:39)
[2017-07-10] MEDS: AZITHROMYCIN INJ 500 MG in SODIUM CHLOR 0.9% 250 ML INJ 250 ML IV SCH (16:13)
--- NOTE | 2017-07-10 20:24 | RADRPT ---
EXAM DATE/TIME: 07/10/2017 20:04 [facility] COMPARISON: No previous studies available for comparison. INDICATIONS : Altered mental status. RADIATION DOSE: 45.21 CTDIvol (mGy) MEDICAL HISTORY : None SURGICAL HISTORY : Appendectomy. Hysterectomy. ENCOUNTER: Initial ACUITY: 1 day PAIN SCALE: Non-responsive LOCATION: cranial TECHNIQUE: Multiple contiguous axial images were obtained of the head. Using automated exposure control and adj ustment of the mA and/or kV according to patient size, radiation dose was kept as low as reasonably a chievable to obtain optimal diagnostic quality images. DICOM format image data is available electro nically for review and comparison. FINDINGS: The study is degraded by mild motion and streak artifact. The patient is tilted in the scanning gantr y. CEREBRUM: The ventricles are normal for age with mild to moderate atrophic change. There mild chronic small ves lyric ischemic changes. No evidence of midline shift, mass lesion, hemorrhage or acute infarction. No extra-axial fluid collections are seen. POSTERIOR FOSSA: The cerebellum and brainstem are intact. The 4th ventricle is midline. The cerebellopontine angle i s unremarkable. EXTRACRANIAL: The visualized portion of the orbits is intact. SKULL: The calvaria is intact. No evidence of skull fracture. CONCLUSION: 1. No acute hemorrhage or mass effect. 2. Atrophy and chronic small vessel ischemic change. 3. Suboptimal study secondary to streak and motion artifact. Osvaldo Fuentes MD on July 10, 2017 at 20:20 Board Certified Radiologist. This report was verified electronically.
--- NOTE | 2017-07-10 20:27 | RADRPT ---
EXAM DATE/TIME: 07/10/2017 20:07 [facility] COMPARISON: CHEST SINGLE AP, May 10, 2017, 17:31. CHEST PA & LAT, July 09, 2017, 12:11. INDICATIONS : Shortness of breath. RADIATION DOSE: 9.37 CTDIvol (mGy) MEDICAL HISTORY : None SURGICAL HISTORY : Appendectomy. Hysterectomy. ENCOUNTER: Initial ACUITY: 1 day PAIN SCALE: Non-responsive LOCATION: chest TECHNIQUE: Volumetric scanning of the chest was performed. Using automated exposure control and adjustment of t he mA and/or kV according to patient size, radiation dose was kept as low as reasonably achievable to obtain optimal diagnostic quality images. DICOM format image data is available electronically for r eview and comparison. Follow-up recommendations for detected pulmonary nodules are based at a minimum on nodule size and pa tient risk factors according to Fleischner Society Guidelines. FINDINGS: LUNGS: There is no consolidation or pneumothorax. No concerning pulmonary nodule is visualized. There is mi ld volume loss in the left lung with deformity of the thorax. This is chronic. PLEURAE: There is no pleural thickening or pleural effusion. MEDIASTINUM: The heart and great vessels demonstrate no acute abnormality. There is no mediastinal or hilar lymph adenopathy. Coronary artery calcifications are present. There are tracheal calcifications as well. AXILLAE: Within normal limits. No lymphadenopathy. MUSCULOSKELETAL: The patient is severely kyphotic. There is diffuse osteopenia and mild degenerative change. There is also mild scoliosis and chronic deformity of the thorax. MISCELLANEOUS: The visualized upper abdominal organs demonstrate no acute abnormality. There is a small hiatal herni a. CONCLUSION: 1. Severe kyphosis with mild scoliosis and deformity of the thorax. 2. No confluent infiltrates or effusions. 3. Small hiatal hernia. Osvaldo Fuentes MD on July 10, 2017 at 20:22 Board Certified Radiologist. This report was verified electronically.
[2017-07-10] MEDS: LATANOPROST 0.005% OPHT SOLN 2.5 ML BTL EACH EYE SCH (21:39)
[2017-07-10] MEDS: SODIUM CHLOR 0.9% 1000 ML INJ 1,000 ML IV SCH (21:39)
[2017-07-11 01:25] VITALS: BP 175/83; PULSE 65; RESP 20; TEMP 98.2; O2SAT 93
[2017-07-11 05:03] VITALS: BP 173/75; PULSE 66; RESP 20; TEMP 98.4; O2SAT 95
[2017-07-11] MEDS: AZTREONAM INJ 1,000 MG in SODIUM CHLORIDE 0.9% INJ 100 ML IV SCH ×3 (05:13→21:16)
[2017-07-11] MEDS: LEVOTHYROXINE SODIUM 50 MCG TAB PO SCH (05:36)
[2017-07-11 08:00] VITALS: BP 179/82; PULSE 67; RESP 19; TEMP 98.7; O2SAT 94
[2017-07-11 08:13] LABS: AUTOMATED NEUTROPHIL # 10.3 TH/MM3 (1.8-7.7); BASOPHIL % 0.2 % (0.0-2.0); EOSINOPHIL % 0.1 % (0.0-4.0); HEMATOCRIT 36.5 % (35.0-46.0); HEMOGLOBIN 12.6 GM/DL (11.6-15.3); LYMPH % 12.8 % (9.0-44.0); LYMPHOCYTE # 1.8 TH/MM3 (1.0-4.8); MEAN CORPUSCULAR HEMOGLOBIN 32.3 PG (27.0-34.0); MEAN CORPUSCULAR HGB CONC 34.4 % (32.0-36.0); MEAN PLATELET VOLUME 6.8 FL (7.0-11.0); MONO % 11.9 % (0.0-8.0); MONOCYTE # 1.6 TH/MM3 (0-0.9); PLATELET COUNT 332 TH/MM3 (150-450); RED BLOOD COUNT 3.89 MIL/MM3 (4.00-5.30); RED CELL DISTRIBUTION WIDTH 13.5 % (11.6-17.2); WHITE BLOOD COUNT 13.7 TH/MM3 (4.0-11.0)
[2017-07-11] MEDS: TIMOLOL MALEATE 0.5% OPHT SOLN 5 ML BTL EACH EYE SCH ×2 (09:00→21:00)
[2017-07-11 09:02] LABS: BICARBONATE 23.6 MEQ/L (21.0-32.0); CREATININE 0.61 MG/DL (0.50-1.00); MAGNESIUM 1.7 MG/DL (1.5-2.5)
--- NOTE | 2017-07-11 10:49 | HHI.PR ---
Subjective Remarks Family members at bedside report that the pt was more awake and alert this morning She is sitting in the bedside chair currently sleeping Pt had one loose BM this morning. Some complaints abdominal cramping reported with the diarrhea. Her son gave her a sip of water this morning and she was coughing and choking on it Objective Vitals Vital Signs Date Time Temp Pulse Resp B/P (MAP) Pulse Ox O2 Delivery O2 Flow Rate FiO2 07/11/17 08:00 98.7 67 19 179/82 (114) 94 07/11/17 05:03 98.4 66 20 173/75 (107) 95 07/11/17 01:25 98.2 65 20 175/83 (113) 93 07/10/17 21:06 98.1 62 18 153/83 (106) 94 07/10/17 16:26 97.5 60 20 174/77 (109) 94 07/10/17 12:25 97.3 60 17 163/87 (112) 94 Result Diagram: 07/11/17 0723 07/11/17 0723 Imaging Last Impressions Head CT 07/10/17 0000 Signed Impressions: Service Date/Time: Monday, July 10, 2017 20:04 - CONCLUSION: 1. No acute hemorrhage or mass effect. 2. Atrophy and chronic small vessel ischemic change. 3. Suboptimal study secondary to streak and motion artifact. Osvaldo Fuentes MD Chest CT 07/10/17 0000 Signed Impressions: Service Date/Time: Monday, July 10, 2017 20:07 - CONCLUSION: 1. Severe kyphosis with mild scoliosis and deformity of the thorax. 2. No confluent infiltrates or effusions. 3. Small hiatal hernia. Osvaldo Fuentes MD Chest X-Ray 07/09/17 0000 Signed Impressions: Service Date/Time: June 12:11 - CONCLUSION: Mild patchy infiltrate in the left lower lung. Fer Tapia MD Abdomen Ultrasound 07/09/17 0000 Signed Impressions: Service Date/Time: June 18:39 - CONCLUSION: Focal unremarkable sonographic appearance of the abdomen Randal Posey MD Abdomen/Pelvis CT [id number]/08/[id number] Signed Impressions: Service Date/Time: Saturday, July 08, 2017 21:50 - CONCLUSION: 1. No acute CT abnormality in the abdomen or pelvis. 2. 4.0 x 4.2 cm enhancing structure in the expected region of the cervix/distal vagina. This is incompletely evaluated due to streak artifact from adjacent hip arthroplasty. Suspect this represents residual tissue in this patient with the history of hysterectomy. Clinical correlation is recommended. 3. Mild sigmoid diverticulosis. 1. Danny Restrepo MD Last Impressions Chest X-Ray 07/09/17 0000 Signed Impressions: Service Date/Time: June 12:11 - CONCLUSION: Mild patchy infiltrate in the left lower lung. Fer Tapia MD Abdomen Ultrasound 07/09/17 0000 Signed Impressions: Service Date/Time: June 18:39 - CONCLUSION: Focal unremarkable sonographic appearance of the abdomen Randal Posey MD Abdomen/Pelvis CT [id number] Signed Impressions: Service Date/Time: Saturday, July 08, 2017 21:50 - CONCLUSION: 1. No acute CT abnormality in the abdomen or pelvis. 2. 4.0 x 4.2 cm enhancing structure in the expected region of the cervix/distal vagina. This is incompletely evaluated due to streak artifact from adjacent hip arthroplasty. Suspect this represents residual tissue in this patient with the history of hysterectomy. Clinical correlation is recommended. 3. Mild sigmoid diverticulosis. 1. Danny Restrepo MD Objective Remarks General: NAD,Awake, more alert, sitting in the chair Chest: Poor inspiratory effort bilaterally Cardiac: Regular Abd: +BS, soft ND/NT Ext: No edema A/P Problem List: (1) Cough ICD Codes: R05 - Cough Status: Acute Plan: -Pt is an 86 y/o WF with chronic back pain with Morphine pump implant, hypothyroidism and hyperlipidemia. Pt presented to the ED at [facility] on 07/08/17 with complaints of a cough and episodic post-tussive cough. Her daughter reports that the pt was in her normal state of health up until around 7:00PM last night when she developed a cough. This was not associated with food intake but her daughter reports that the pt does occasionally have issues with choking easily while eating. The pt denies any sore throat, sinus congestion, SOB or palpitations. Cough, new onset, ?aspiration pneumonia Post-tussive vomiting - In the ED there reported that the pts main complaint was that of nausea and vomiting. - CT Abd/pelvis (07/08) --> No acute CT abnormality in the abdomen or pelvis. It did note a 4.0 x 4.2 cm enhancing structure in the expected region of the cervix/distal vagina but this was incompletely evaluated due to streak artifact from adjacent hip arthroplasty, suspect this represents residual tissue in this patient with the history of hysterectomy. - Pts labs at admission noted a normal WBC count. She has been afebrile. - Negative for Influenza - CXR (07/09) --> Mild patchy LLL infiltrate - Pt was started on Azithromycin IV for possible pneumonia and Aztreonam was added on 07/10 - Chest CT (07/10) --> Severe kyphosis with mild scoliosis and deformity of the thorax. No confluent infiltrates or effusions. Small hiatal hernia. - Its felt that the pt likely has aspiration pneumonia - Pt is NPO and ST to re-evaluate today - She was not able to participate in ST evaluation yesterday likely secondary to sedation from Ativan - Discussed with the family at bedside that we will continue to have ST evaluate daily but should her swallowing not improve they may need to consider a feeding tube if they wish to continue aggressive measures. - Discussed code status as well but the pt family wants to discuss this amongst themselves before deciding. - PT evaluation - Monitor vitals and continue supportive care Diarrhea Abdominal pain - On 07/09 pt had multiple loose stools. Stool was negative for C. diff - Pt was treated recently for bronchitic in 05/2017 with Z-ivan x 2 - Pt was given IVF and antiemetics in the ED. - Cont. IVF as pt not eating or drinking much - Stool culture is pending. - Imodium PRN - Abdominal US (07/09) --> Focal unremarkable sonographic appearance of the abdomen - Cont. Antiemetics PRN - Stool studies are negative. Hypothyroidism - Cont. home meds (2) Post-tussive vomiting ICD Codes: R11.10 - Vomiting, unspecified Status: Acute (3) Diarrhea ICD Codes: R19.7 - Diarrhea, unspecified Status: Acute (4) Hypothyroid ICD Codes: E03.9 - Hypothyroid Status: Chronic (5) Chronic pain ICD Codes: G89.29 - Chronic pain Status: Chronic Assessment and Plan Patient examined. Assessment and plan formulated with Samantha Luna PA-C. I agree with the above. pt is aspirating at home by history and I see that she is doing the same here. CT looks like small area of pna on left side. on broad abx. n/v/d stopped delirious and agitated intermittently. she has memory problems at home and so sundowning suspected. updated family at length. If persistent failure of swallow eval then ppn and give her 2 or 3 more days to pass it...if fails then they want peg. full code per at the moment. Samantha Luna Jul 11, 2017 10:49 Black Hernandez MD Jul 11, 2017 12:01
[2017-07-11] MEDS ORDERED: NS + KCL 40 MEQ INJ 1,000 ML IV SCH (11:00)
[2017-07-11] MEDS ORDERED: ENALAPRILAT 1.25 MG/ML VIAL IV PUSH PRN ×2 (11:00→16:45)
[2017-07-11 12:00] VITALS: BP 176/81; PULSE 70; RESP 17; TEMP 98.2; O2SAT 94
[2017-07-11] MEDS: AZITHROMYCIN INJ 500 MG in SODIUM CHLOR 0.9% 250 ML INJ 250 ML IV SCH (15:18)
[2017-07-11 16:00] VITALS: BP 181/84; PULSE 77; RESP 30; TEMP 97.9; O2SAT 94
[2017-07-11] MEDS: RESP: ALBUTEROL 2.5 MG/IPRATROPIUM 0.5 MG NEB (PRN) NEB (16:03)
[2017-07-11] MEDS: ONDANSETRON HCL 4 MG/2 ML VIAL IV PUSH PRN ×2 (16:13→21:27)
[2017-07-11] MEDS ORDERED: ENALAPRILAT 1.25 MG/ML VIAL IV PUSH ONE (17:00)
[2017-07-11] MEDS: cloNIDine HCL 0.1 MG/24 HR PATCH T-DERMAL SCH (17:16)
[2017-07-11 20:00] VITALS: BP 187/80; PULSE 76; RESP 18; TEMP 97.1; O2SAT 96
[2017-07-11] MEDS: LATANOPROST 0.005% OPHT SOLN 2.5 ML BTL EACH EYE SCH (21:00)
[2017-07-11] MEDS: FAT EMULSION 20% INJ 250 ML (@10 mls/hr) IV SCH (21:15)
[2017-07-11] MEDS: CLINIMIX E 4.25/5 2000 mL- >42 mls/hr IV SCH ×3 (21:15)
[2017-07-12] VITALS (7 sets, daily range): BP systolic 139–157; BP diastolic 67–78; PULSE 69–80; RESP 18–26; TEMP 97–98.9; O2SAT 92–99
[2017-07-12] MEDS ORDERED: MORPHINE SULFATE 2 MG/ML INJ IV ONE (03:00)
[2017-07-12] MEDS: AZTREONAM INJ 1,000 MG in SODIUM CHLORIDE 0.9% INJ 100 ML IV SCH ×3 (04:00→22:31)
[2017-07-12] MEDS: LEVOTHYROXINE SODIUM 50 MCG TAB PO SCH (05:46)
[2017-07-12 08:47] LABS: AUTOMATED NEUTROPHIL # 11.4 TH/MM3 (1.8-7.7); BASOPHIL % 0.2 % (0.0-2.0); EOSINOPHIL % 0.2 % (0.0-4.0); HEMATOCRIT 38.1 % (35.0-46.0); LYMPH % 9.9 % (9.0-44.0); LYMPHOCYTE # 1.5 TH/MM3 (1.0-4.8); MEAN CELL VOLUME 95.5 FL (80.0-100.0); MEAN CORPUSCULAR HEMOGLOBIN 32.6 PG (27.0-34.0); MEAN CORPUSCULAR HGB CONC 34.2 % (32.0-36.0); MONO % 13.6 % (0.0-8.0); NEUT % 76.1 % (16.0-70.0); PLATELET COUNT 306 TH/MM3 (150-450); RED BLOOD COUNT 3.99 MIL/MM3 (4.00-5.30); RED CELL DISTRIBUTION WIDTH 13.2 % (11.6-17.2)
[2017-07-12 08:56] LABS: BICARBONATE 22.3 MEQ/L (21.0-32.0); CREATININE 0.72 MG/DL (0.50-1.00); MAGNESIUM 1.7 MG/DL (1.5-2.5)
[2017-07-12] MEDS: TIMOLOL MALEATE 0.5% OPHT SOLN 5 ML BTL EACH EYE SCH ×2 (09:00→22:45)
[2017-07-12] MEDS: PANTOPRAZOLE SODIUM 40 MG VIAL IV PUSH SCH ×2 (09:23→22:47)
--- NOTE | 2017-07-12 10:16 | HHI.PR ---
Subjective Remarks Pt reportedly had increased back pain last night. Family is concerned that her implanted morphine pump may be out of medication. The is unclear of how long ago the pump was filled. The family has reached out to the pts pain management office but it unclear when they will be able to get back to them with the holidays tomorrow The pts family did not have a good experience with the nursing staff last night. Pt has been afebrile She complained of some indigestion last night Objective Vitals Vital Signs Date Time Temp Pulse Resp B/P (MAP) Pulse Ox O2 Delivery O2 Flow Rate FiO2 07/12/17 08:00 98.9 71 26 157/72 (100) 94 07/12/17 04:00 97.0 77 18 139/78 (98) 98 07/12/17 00:00 97.7 80 20 153/72 (99) 98 07/11/17 20:00 97.1 76 18 187/80 (115) 96 07/11/17 16:00 97.9 77 30 181/84 (116) 94 07/11/17 12:00 98.2 70 17 176/81 (112) 94 Result Diagram: 07/12/17 0732 07/12/17 0732 Other Results Laboratory Tests Test 07/11/17 07:23 07/12/17 07:32 White Blood Count 13.7 TH/MM3 15.0 TH/MM3 Red Blood Count 3.89 MIL/MM3 3.99 MIL/MM3 Hemoglobin 12.6 GM/DL 13.0 GM/DL Hematocrit 36.5 % 38.1 % Mean Corpuscular Volume 94.0 FL 95.5 FL Mean Corpuscular Hemoglobin 32.3 PG 32.6 PG Mean Corpuscular Hemoglobin Concent 34.4 % 34.2 % Red Cell Distribution Width 13.5 % 13.2 % Platelet Count 332 TH/MM3 306 TH/MM3 Mean Platelet Volume 6.8 FL 7.0 FL Neutrophils (%) (Auto) 75.0 % 76.1 % Lymphocytes (%) (Auto) 12.8 % 9.9 % Monocytes (%) (Auto) 11.9 % 13.6 % Eosinophils (%) (Auto) 0.1 % 0.2 % Basophils (%) (Auto) 0.2 % 0.2 % Neutrophils # (Auto) 10.3 TH/MM3 11.4 TH/MM3 Lymphocytes # (Auto) 1.8 TH/MM3 1.5 TH/MM3 Monocytes # (Auto) 1.6 TH/MM3 2.0 TH/MM3 Eosinophils # (Auto) 0.0 TH/MM3 0.0 TH/MM3 Basophils # (Auto) 0.0 TH/MM3 0.0 TH/MM3 CBC Comment DIFF FINAL DIFF FINAL Differential Comment Blood Urea Nitrogen 15 MG/DL 23 MG/DL Creatinine 0.61 MG/DL 0.72 MG/DL Random Glucose 105 MG/DL 142 MG/DL Calcium Level 8.0 MG/DL 8.0 MG/DL Magnesium Level 1.7 MG/DL 1.7 MG/DL Sodium Level 135 MEQ/L 133 MEQ/L Potassium Level 2.8 MEQ/L 3.3 MEQ/L Chloride Level 101 MEQ/L 101 MEQ/L Carbon Dioxide Level 23.6 MEQ/L 22.3 MEQ/L Anion Gap 10 MEQ/L 10 MEQ/L Estimat Glomerular Filtration Rate 93 ML/MIN 77 ML/MIN Imaging Last Impressions Head CT 07/10/17 0000 Signed Impressions: Service Date/Time: Monday, July 10, 2017 20:04 - CONCLUSION: 1. No acute hemorrhage or mass effect. 2. Atrophy and chronic small vessel ischemic change. 3. Suboptimal study secondary to streak and motion artifact. Osvaldo Fuentes MD Chest CT 07/10/17 0000 Signed Impressions: Service Date/Time: Monday, July 10, 2017 20:07 - CONCLUSION: 1. Severe kyphosis with mild scoliosis and deformity of the thorax. 2. No confluent infiltrates or effusions. 3. Small hiatal hernia. Osvaldo Fuentes MD Chest X-Ray 07/09/17 0000 Signed Impressions: Service Date/Time: June 12:11 - CONCLUSION: Mild patchy infiltrate in the left lower lung. Fer Tapia MD Abdomen Ultrasound 07/09/17 0000 Signed Impressions: Service Date/Time: June 18:39 - CONCLUSION: Focal unremarkable sonographic appearance of the abdomen Randal Posey MD Abdomen/Pelvis CT [id number]/08/172122 Signed Impressions: Service Date/Time: Saturday, July 08, 2017 21:50 - CONCLUSION: 1. No acute CT abnormality in the abdomen or pelvis. 2. 4.0 x 4.2 cm enhancing structure in the expected region of the cervix/distal vagina. This is incompletely evaluated due to streak artifact from adjacent hip arthroplasty. Suspect this represents residual tissue in this patient with the history of hysterectomy. Clinical correlation is recommended. 3. Mild sigmoid diverticulosis. 1. Danny Restrepo MD Last Impressions Chest X-Ray 07/09/17 0000 Signed Impressions: Service Date/Time: June 12:11 - CONCLUSION: Mild patchy infiltrate in the left lower lung. Fer Tapia MD Abdomen Ultrasound 07/09/17 0000 Signed Impressions: Service Date/Time: June 18:39 - CONCLUSION: Focal unremarkable sonographic appearance of the abdomen Randal Posey MD Abdomen/Pelvis CT [id number] Signed Impressions: Service Date/Time: Saturday, July 08, 2017 21:50 - CONCLUSION: 1. No acute CT abnormality in the abdomen or pelvis. 2. 4.0 x 4.2 cm enhancing structure in the expected region of the cervix/distal vagina. This is incompletely evaluated due to streak artifact from adjacent hip arthroplasty. Suspect this represents residual tissue in this patient with the history of hysterectomy. Clinical correlation is recommended. 3. Mild sigmoid diverticulosis. 1. Danny Restrepo MD Objective Remarks General: NAD, resting comfortably, awakens easily but quickly drifts back to sleep Chest: Poor inspiratory effort bilaterally Cardiac: Regular Abd: +BS, soft ND/NT Ext: No edema A/P Problem List: (1) Cough ICD Codes: R05 - Cough Status: Acute Plan: -Pt is an 86 y/o WF with chronic back pain with Morphine pump implant, hypothyroidism and hyperlipidemia. Pt presented to the ED at [facility] on 07/08/17 with complaints of a cough and episodic post-tussive cough. Her daughter reports that the pt was in her normal state of health up until around 7:00PM last night when she developed a cough. This was not associated with food intake but her daughter reports that the pt does occasionally have issues with choking easily while eating. The pt denies any sore throat, sinus congestion, SOB or palpitations. Cough, new onset, ?aspiration pneumonia Post-tussive vomiting - In the ED there reported that the pts main complaint was that of nausea and vomiting. - CT Abd/pelvis (07/08) --> No acute CT abnormality in the abdomen or pelvis. It did note a 4.0 x 4.2 cm enhancing structure in the expected region of the cervix/distal vagina but this was incompletely evaluated due to streak artifact from adjacent hip arthroplasty, suspect this represents residual tissue in this patient with the history of hysterectomy. - Pts labs at admission noted a normal WBC count. She has been afebrile. - Negative for Influenza - CXR (07/09) --> Mild patchy LLL infiltrate - Pt was started on Azithromycin IV for possible pneumonia and Aztreonam was added on 07/10 - Chest CT (07/10) --> Severe kyphosis with mild scoliosis and deformity of the thorax. No confluent infiltrates or effusions. Small hiatal hernia. - Its felt that the pt likely has aspiration pneumonia - Pt is NPO and ST re-evaluated on 07/11 and pt noted to have clinical s/s of aspiration on thin liquids. - Pt was started on PPN on 07/11 - Discussed with the family at bedside that we will continue to have ST evaluate daily but should her swallowing not improve they may need to consider a feeding tube if they wish to continue aggressive measures. - We will give it through Thursday 07/13 to see if her swallowing improves before deciding about PEG tube placement should the family decide to proceed with that. - Discussed code status as well but the pt family wants to discuss this amongst themselves before deciding. - PT evaluation - Monitor vitals and continue supportive care Diarrhea Abdominal pain - On 07/09 pt had multiple loose stools. Stool was negative for C. diff - Pt was treated recently for bronchitic in 05/2017 with Z-ivan x 2 - Pt was given IVF and antiemetics in the ED. - Cont. IVF as pt not eating or drinking much - Stool culture is pending. - Imodium PRN - Abdominal US (07/09) --> Focal unremarkable sonographic appearance of the abdomen - Protonix 40mg BID - Cont. Antiemetics PRN - Stool studies are negative. Hypothyroidism - Cont. home meds Chronic back pain - Pt has an implanted Morphine pain pump but family is concerned that they medication has run out as the pt had increased back pain last night. - The pts family has contacted the pts Pain management office but its unclear if anyone will be able to assess the pump in the hospital. This was discussed with the pts family at bedside - We will provide IV Morphine PRN for pain control. (2) Post-tussive vomiting ICD Codes: R11.10 - Vomiting, unspecified Status: Acute (3) Diarrhea ICD Codes: R19.7 - Diarrhea, unspecified Status: Acute (4) Hypothyroid ICD Codes: E03.9 - Hypothyroid Status: Chronic (5) Chronic pain ICD Codes: G89.29 - Chronic pain Status: Chronic Assessment and Plan Patient examined. Assessment and plan formulated with Samantha Luna PA-C. I agree with the above. pt is aspirating at home by history and I see that she is doing the same here. CT looks like small area of pna on left side. on broad abx. n/v/d stopped delirious and agitated intermittently. she has memory problems at home and so sundowning suspected. updated family at length. If persistent failure of swallow eval then ppn and give her until Tuesdaay to pass it...if fails then they want peg. full code per at the moment. ?some degree of narcotic w/d if pump empty ....morphine iv ordered. family will discuss. Samantha Luna Jul 12, 2017 10:16 Black Hernandez MD Jul 12, 2017 12:44
[2017-07-12] MEDS: MORPHINE SULFATE 2 MG/ML INJ IV PUSH PRN ×3 (11:55→20:52)
[2017-07-12] MEDS: RESP: ALBUTEROL 2.5 MG/IPRATROPIUM 0.5 MG NEB (SCH) NEB ×4 (12:20→23:33)
--- NOTE | 2017-07-12 14:31 | RADRPT ---
EXAM DATE/TIME: 07/12/2017 13:54 [facility] COMPARISON: CT ABDOMEN & PELVIS W CONTRAST, July 08, 2017, 21:50. INDICATIONS : Left hip pain, no injury. MEDICAL HISTORY : Prolapsed rectum SURGICAL HISTORY : Appendectomy. Hysterectomy. Right total hip, morphine pump ENCOUNTER: Initial ACUITY: 2 days PAIN SCORE: 10/10 LOCATION: Left hip FINDINGS: There is a right hip prosthesis in place. There is an electronic device seen over the left lateral pe lvis. There is a deformity at the left femoral neck. There appears to be remodeling of the femoral he ad and neck region. This appears chronic. An acute area of cortical disruption is not clearly seen. T here is very some protrusio at the left acetabulum. There appears to be deformities of the superior a nd inferior pubic rami bilaterally likely from prior fracture. The bones are osteopenic. There is los s of height of several lumbar vertebral bodies. CONCLUSION: Suspected chronic change as described above. Randal Norton MD on July 12, 2017 at 14:23 Board Certified Radiologist. This report was verified electronically.
[2017-07-12] MEDS: AZITHROMYCIN INJ 500 MG in SODIUM CHLOR 0.9% 250 ML INJ 250 ML IV SCH (14:35)
[2017-07-12] MEDS: CLINIMIX E 4.25/5 2000 mL- >42 mls/hr IV SCH ×3 (22:39)
[2017-07-12] MEDS: FAT EMULSION 20% INJ 250 ML (@10 mls/hr) IV SCH (22:40)
[2017-07-12] MEDS: LATANOPROST 0.005% OPHT SOLN 2.5 ML BTL EACH EYE SCH (22:45)
[2017-07-13] VITALS (8 sets, daily range): BP systolic 134–157; BP diastolic 60–91; PULSE 65–86; RESP 18–20; TEMP 98–98.9; O2SAT 92–97
[2017-07-13] MEDS: RESP: ALBUTEROL 2.5 MG/IPRATROPIUM 0.5 MG NEB (SCH) NEB ×6 (02:51→23:51)
[2017-07-13] MEDS: AZTREONAM INJ 1,000 MG in SODIUM CHLORIDE 0.9% INJ 100 ML IV SCH ×3 (03:34→20:37)
[2017-07-13] MEDS: MORPHINE SULFATE 2 MG/ML INJ IV PUSH PRN ×5 (03:40→21:20)
[2017-07-13] MEDS: LEVOTHYROXINE SODIUM 50 MCG TAB PO SCH (06:00)
[2017-07-13] MEDS: PANTOPRAZOLE SODIUM 40 MG VIAL IV PUSH SCH ×2 (08:50→20:47)
[2017-07-13] MEDS: TIMOLOL MALEATE 0.5% OPHT SOLN 5 ML BTL EACH EYE SCH ×2 (08:51→22:37)
[2017-07-13] MEDS: AZITHROMYCIN INJ 500 MG in SODIUM CHLOR 0.9% 250 ML INJ 250 ML IV SCH (15:52)
--- NOTE | 2017-07-13 16:14 | HHI.PR ---
Subjective Remarks Per family pt is more alert today. Pt has an implanted morphine pain pump which the family believes is now empty. Pt has been complaining of generalized pain and requiring prn morphine. Objective Vitals Vital Signs Date Time Temp Pulse Resp B/P (MAP) Pulse Ox O2 Delivery O2 Flow Rate FiO2 07/13/17 15:59 97 21 07/13/17 12:08 98.7 65 18 145/75 (98) 94 07/13/17 08:49 93 07/13/17 08:34 98.1 68 18 157/91 (113) 93 07/13/17 06:27 98.1 68 20 134/60 (84) 93 07/13/17 01:17 98.7 66 18 154/67 (96) 94 07/12/17 21:38 92 07/12/17 20:30 98.4 78 18 153/67 (95) 94 07/13/17 07/13/17 07/14/17 15:00 23:00 07:00 Intake Total 100 ml Balance 100 ml IV Total 100 ml Result Diagram: 07/12/17 0732 07/12/17 0732 Imaging Last Impressions Head CT 07/10/17 0000 Signed Impressions: Service Date/Time: Monday, July 10, 2017 20:04 - CONCLUSION: 1. No acute hemorrhage or mass effect. 2. Atrophy and chronic small vessel ischemic change. 3. Suboptimal study secondary to streak and motion artifact. Osvaldo Fuentes MD Chest CT 07/10/17 0000 Signed Impressions: Service Date/Time: Monday, July 10, 2017 20:07 - CONCLUSION: 1. Severe kyphosis with mild scoliosis and deformity of the thorax. 2. No confluent infiltrates or effusions. 3. Small hiatal hernia. Osvaldo Fuentes MD Chest X-Ray 07/09/17 0000 Signed Impressions: Service Date/Time: June 12:11 - CONCLUSION: Mild patchy infiltrate in the left lower lung. Fer Tapia MD Abdomen Ultrasound 07/09/17 0000 Signed Impressions: Service Date/Time: June 18:39 - CONCLUSION: Focal unremarkable sonographic appearance of the abdomen Randal Posey MD Abdomen/Pelvis CT [id number]/[id number] Signed Impressions: Service Date/Time: Saturday, July 08, 2017 21:50 - CONCLUSION: 1. No acute CT abnormality in the abdomen or pelvis. 2. 4.0 x 4.2 cm enhancing structure in the expected region of the cervix/distal vagina. This is incompletely evaluated due to streak artifact from adjacent hip arthroplasty. Suspect this represents residual tissue in this patient with the history of hysterectomy. Clinical correlation is recommended. 3. Mild sigmoid diverticulosis. 1. Danny Restrepo MD Last Impressions Chest X-Ray 07/09/17 0000 Signed Impressions: Service Date/Time: June 12:11 - CONCLUSION: Mild patchy infiltrate in the left lower lung. Fer Tapia MD Abdomen Ultrasound 07/09/17 0000 Signed Impressions: Service Date/Time: June 18:39 - CONCLUSION: Focal unremarkable sonographic appearance of the abdomen Randal Posey MD Abdomen/Pelvis CT [id number]/08/172122 Signed Impressions: Service Date/Time: Saturday, July 08, 2017 21:50 - CONCLUSION: 1. No acute CT abnormality in the abdomen or pelvis. 2. 4.0 x 4.2 cm enhancing structure in the expected region of the cervix/distal vagina. This is incompletely evaluated due to streak artifact from adjacent hip arthroplasty. Suspect this represents residual tissue in this patient with the history of hysterectomy. Clinical correlation is recommended. 3. Mild sigmoid diverticulosis. 1. Danny Restrepo MD Objective Remarks General: NAD, A&O2 Chest: clear x b/l Cardiac: Regular Abd: +BS, soft ND/NT Ext: No edema A/P Problem List: (1) Cough ICD Codes: R05 - Cough Status: Acute Plan: -Pt is an 86 y/o WF with chronic back pain with Morphine pump implant, hypothyroidism and hyperlipidemia. Pt presented to the ED at [facility] on 07/08/17 with complaints of a cough and episodic post-tussive cough. Her daughter reports that the pt was in her normal state of health up until around 7:00PM last night when she developed a cough. This was not associated with food intake but her daughter reports that the pt does occasionally have issues with choking easily while eating. The pt denies any sore throat, sinus congestion, SOB or palpitations. Cough, new onset, ?aspiration pneumonia Post-tussive vomiting - In the ED there reported that the pts main complaint was that of nausea and vomiting. - CT Abd/pelvis (07/08) --> No acute CT abnormality in the abdomen or pelvis. It did note a 4.0 x 4.2 cm enhancing structure in the expected region of the cervix/distal vagina but this was incompletely evaluated due to streak artifact from adjacent hip arthroplasty, suspect this represents residual tissue in this patient with the history of hysterectomy. - Pts labs at admission noted a normal WBC count. She has been afebrile. - Negative for Influenza - CXR (07/09) --> Mild patchy LLL infiltrate - repeat CXR (07/14/16) - Pt was started on Azithromycin IV for possible pneumonia and Aztreonam was added on 07/10 - Chest CT (07/10) --> Severe kyphosis with mild scoliosis and deformity of the thorax. No confluent infiltrates or effusions. Small hiatal hernia. - Its felt that the pt likely has aspiration pneumonia - repeat ST evaluation (07/13) - upgrade diet to pureed & honey thickened liquids - obtain modified barrium swallow eval - Pt was started on PPN on 07/11 - continue PPN for now until confident that pt able to tolerate diet - hold off on feeding tube for now, await results of modified swallow eval - obtain Palliative Care consult - PT - DVT prophylaxis Diarrhea Abdominal pain - On 07/09 pt had multiple loose stools. Stool was negative for C. diff - Pt was treated recently for bronchitic in 05/2017 with Z-ivan x 2 - Pt was given IVF and antiemetics in the ED. - Cont. IVF as pt not eating or drinking much - Stool culture is pending. - Imodium PRN - Abdominal US (07/09) --> Focal unremarkable sonographic appearance of the abdomen - Protonix 40mg BID - Cont. Antiemetics PRN - Stool studies are negative. Hypothyroidism - Cont. home meds Chronic back pain - Pt has an implanted Morphine pain pump but family is concerned that they medication has run out as the pt had increased back pain last night. - The pts family has contacted the pts Pain management office but its unclear if anyone will be able to assess the pump in the hospital. This was discussed with the pts family at bedside - We will provide IV Morphine PRN for pain control. - start duragesic 25mcg transdermal (2) Post-tussive vomiting ICD Codes: R11.10 - Vomiting, unspecified Status: Acute (3) Diarrhea ICD Codes: R19.7 - Diarrhea, unspecified Status: Acute (4) Hypothyroid ICD Codes: E03.9 - Hypothyroid Status: Chronic (5) Chronic pain ICD Codes: G89.29 - Chronic pain Status: Chronic Alexis Ramires DO Jul 13, 2017 16:14
[2017-07-13] MEDS: fentaNYL 25 MCG/HR PATCH T-DERMAL SCH (16:15)
[2017-07-13] MEDS: CLINIMIX E 4.25/5 2000 mL- >42 mls/hr IV SCH ×3 (20:36)
[2017-07-13] MEDS: FAT EMULSION 20% INJ 250 ML (@10 mls/hr) IV SCH (20:36)
[2017-07-13] MEDS: LATANOPROST 0.005% OPHT SOLN 2.5 ML BTL EACH EYE SCH (22:37)
[2017-07-14] VITALS (8 sets, daily range): BP systolic 137–158; BP diastolic 63–73; PULSE 65–76; RESP 17–20; TEMP 97.7–98.8; O2SAT 92–99
[2017-07-14] MEDS: MORPHINE SULFATE 2 MG/ML INJ IV PUSH PRN ×5 (01:33→19:08)
[2017-07-14] MEDS: RESP: ALBUTEROL 2.5 MG/IPRATROPIUM 0.5 MG NEB (SCH) NEB ×6 (03:33→23:55)
[2017-07-14] MEDS: AZTREONAM INJ 1,000 MG in SODIUM CHLORIDE 0.9% INJ 100 ML IV SCH ×3 (03:40→20:53)
[2017-07-14] MEDS: LEVOTHYROXINE SODIUM 50 MCG TAB PO SCH (06:00)
--- NOTE | 2017-07-14 10:04 | RADRPT ---
EXAM DATE/TIME: 07/14/2017 09:20 [facility] COMPARISON: CHEST PA & LAT, July 09, 2017, 12:11. INDICATIONS : Cough, short of breath. MEDICAL HISTORY : Hypothyroidism. SURGICAL HISTORY : Hysterectomy. Appendectomy. ENCOUNTER: Subsequent ACUITY: 1 week PAIN SCORE: 0/10 LOCATION: Bilateral chest FINDINGS: The heart is mildly enlarged. Mild increased interstitial markings are noted bilaterally. Degenerativ e changes and scoliosis of the thoraco-lumbar spine are stable. CONCLUSION: 1. Mild cardiomegaly. 2. Mild increased interstitial markings bilaterally which are nonspecific. Farzad Estrella MD on July 14, 2017 at 9:59 Board Certified Radiologist. This report was verified electronically.
[2017-07-14] MEDS: PANTOPRAZOLE SODIUM 40 MG VIAL IV PUSH SCH ×2 (10:05→20:54)
[2017-07-14] MEDS: TIMOLOL MALEATE 0.5% OPHT SOLN 5 ML BTL EACH EYE SCH ×2 (10:06→21:02)
--- NOTE | 2017-07-14 10:20 | RADRPT ---
EXAM DATE/TIME: 07/14/2017 00:00 [facility] COMPARISON: No previous studies available for comparison. INDICATIONS : Dysphagia, vomiting, evaluate aspiration FLUORO TIME: 1.5 minutes IMAGE COUNT: 0 CONTRAST: Dose as prescribed by speech pathologist. MEDICAL HISTORY : None. SURGICAL HISTORY : None. ENCOUNTER: Initial ACUITY: 3 days PAIN SCORE: Non-responsive. LOCATION: Bilateral esophagus FINDINGS: The examination was performed in conjunction with speech pathology. CONCLUSION: Please refer to speech pathology report for complete discussion. Jennifer Renteria MD on July 14, 2017 at 10:18 Board Certified Radiologist. This report was verified electronically.
[2017-07-14 10:37] LABS: AUTOMATED NEUTROPHIL # 6.3 TH/MM3 (1.8-7.7); BASOPHIL % 0.5 % (0.0-2.0); EOSINOPHIL # 0.6 TH/MM3 (0-0.4); EOSINOPHIL % 6.4 % (0.0-4.0); HEMATOCRIT 35.7 % (35.0-46.0); HEMOGLOBIN 12.4 GM/DL (11.6-15.3); LYMPH % 14.9 % (9.0-44.0); LYMPHOCYTE # 1.4 TH/MM3 (1.0-4.8); MEAN CELL VOLUME 95.5 FL (80.0-100.0); MEAN CORPUSCULAR HGB CONC 34.6 % (32.0-36.0); MONO % 11.2 % (0.0-8.0); MONOCYTE # 1.1 TH/MM3 (0-0.9); PLATELET COUNT 272 TH/MM3 (150-450); RED BLOOD COUNT 3.74 MIL/MM3 (4.00-5.30); RED CELL DISTRIBUTION WIDTH 13.3 % (11.6-17.2); WHITE BLOOD COUNT 9.4 TH/MM3 (4.0-11.0)
--- NOTE | 2017-07-14 10:52 | PD.CONS ---
Consult Service Palliative Care Consult Requested By Dr. Ramires Primary Care Physician Michael Daigle MD Reason for Consultation a. To assist with evaluation and management of symptoms including: Chronic pain, nausea and vomiting and dysphagia. b. To assist medical decision maker(s) with: better understanding of current medical conditions; weighing benefits/burdens of medical treatment options; making medical treatment decisions. (Nj Machado) HPI History of Present Illness Mrs. 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 Patient was recently in ER on May 10, 2017 for evaluation of a productive cough and was treated with Zithromax Z-Wolfgang. She presented to the ER on 07/08/17 complaining of abdominal pain (right upper quadrant tenderness), nausea and bilious vomiting for about 2 hours prior to arriving at the ER. ER course: * Vital signs; BP 153/69, pulse 63, respirations 16, O2 saturation 95% on room air * Labwork revealing WBC 10.7, hemoglobin 12.7, hematocrit 37.6, platelet count 313, sodium 136, potassium 4.5, BUN/creatinine 12/0.75, AST 83, ALT 14, total protein 7.0, albumin 2.8 * 4 mg Zofran and 500ml normal saline IV administered * UA done, no culture indicated * CT abdomen revealed mild sigmoid diverticulosis * Rapid flu swab-negative for flu a and B antigen Patient continued with nausea and retching in ER, was admitted for further workup. Patient developed agitation and confused on 07/10 after Lorazepam administration per family. Head CT revealed atrophy and chronic small vessel ischemic changes and no acute hemorrhage. Chest CT 07/10 revealed severe kyphosis with mild scoliosis and deformity of the thorax. Speech therapy consulted for swallow evaluation and family had reported episodes of choking and coughing during meals at home. As of 07/13/17 ST recommended puree diet with honey consistency thickened fluids. Physical therapy consulted. Clinical course complicated with confusion and delirious at night requiring use of Lorazepam, dysphagia, diarrhea and pain. Palliative care consulted to assist with clarification of goals. Patient seen and examined in her room in the presence of her Randal Rene, son Edmundo Rene and Nilsa Perales. Patient awake, alert and oriented to person, place and situation with some forgetfulness. Patient is currently not showing any signs of distress or discomfort. She states that pain is exacerbated with movement/ repositioning and rates it 10/10. Patient describes pain as sharp and it is mostly to her back.Patient has Morphine Sulfate 2mg Q 4 hours PRN and was started on Fentanyl patch 25mcg Q 3days. Patient reports some relief of pain when Morphine Sulfate is administered. Patient is hard of hearing and is wearing a hearing aid to her right ear. Vital signs today Temp 98.1, Pulse 65, RR20, O2 saturation 95% on room air. Chest X ray today revealed mild cardiomegaly and mild increased interstitial markings bilaterally. Modified barium swallow evaluation ordered to be done today. Obtained psychosocial, and past medical history. Updated family on patient's current medical status. Addressed code status, discussed risks, benefits and limitations of CPR given ongoing multiple comorbidities. Patient stated that she wanted to be a full code and wants everything done for her to get a better. Patient's , son and daughter supportive of patient's decision. Family states that patient has a living will and Power of Tile And Mottle Supervisor papers at home. Encouraged family to bring any advance directives paper they have to the hospital. with the support of daughter and son verbalized that he was patient`s POA. Patient's family voiced concern that patient's implanted morphine pump was empty and that they are wondering whether her being in pain is compounding her current medical status. Explained to family patient`s current pain management regimen and that increasing parenteral Morphine Sulfate may cause sedation. Family was not able to provide at this time the dosage and concentration of the Morphine Sulfate in the pump. Apparently family have contacted patient`s pain management physician Dr. Allison notified that he does not have privileges to practice at this hospital, however family that the hospital should be able to have a physician can refill the implanted morphine pain pump. Family mentioned that they are also trying the best communicating with the pain management clinic to see how this matter can be resolved and they mentioned that there is a possibility of Dr. Tolu alejandra pain management coming in to see patient and refill the pump. Tentative meeting today at 1400 hrs. with patient's , 3 adult children, and one other son via telephone. Case discussed with Dr. Alarcon who managed to speak to Dr. Navid Marie to see how we can assist patient. Dr. Richter will send someone to look at patient `s implanted pump and check the settings, and concentration of medication in pump to determine if he will be able to refill pump. Another possible option would be to transfer patient to a hospital that her pain management physician has privileges and is able to refill pump. Case also discussed with Dr. Ramires. 1400hrs meeting cancelled by Edmundo Rene, patient`s son who requested to postpone it to tomorrow due to a family emergency. Function/Cognitive Trajectory Patient resides at home with her and her daughter lives with them to assist with caring for them. She uses a rolling walker for short distances- from and to mailbox and uses a wheelchair for long distances, able to propel herself while on wheelchair, and assists with cleaning the house and cooking. Reports of patient coughing during meals home and memory problems. (Nj Machado) Review of Systems Constitutional: COMPLAINS OF: Change in appetite, Pain, Generalized weakness, DENIES: Fever Eyes: DENIES: Eye inflammation Ears, nose, mouth, throat: COMPLAINS OF: Hearing loss (Hard of hearing, wears a hearing aide to right ear) Respiratory: COMPLAINS OF: Cough, DENIES: Hemoptysis, Shortness of breath Cardiovascular: DENIES: Lower Extremity Edema Gastrointestinal: COMPLAINS OF: Abdominal pain, Diarrhea, Nausea, Vomiting, Difficulty Swallowing, DENIES: Black stools, Bloody stools, Constipation Musculoskeletal: COMPLAINS OF: Back pain, Decreased range of motion Psychiatric: COMPLAINS OF: Confusion, Depression, Agitation (Nj Machado) Past Family Social History Coded Allergies: cefuroxime (Unverified Allergy, Severe, 07/08/17) latex (Unverified Allergy, Severe, "RASH", 07/08/17) penicillin G (Unverified Allergy, Severe, "RASH AND HEADACHE", 07/08/17) tetanus toxoid, adsorbed (Unverified Allergy, Severe, PT DOESN'T KNOW, ) hydrocodone (Unverified Allergy, Mild, Nausea/Vomiting, 07/08/17) propoxyphene (Unverified Allergy, Mild, 07/08/17) acetaminophen (Unverified Allergy, Unknown, 07/08/17) pt denies alendronate sodium (Unverified Allergy, Unknown, 07/08/17) cetirizine (Unverified Allergy, Unknown, 07/08/17) ciprofloxacin (Unverified Allergy, Unknown, 07/08/17) nitrofurantoin (Unverified Allergy, Unknown, 07/08/17) oxycodone (Unverified Allergy, Unknown, 07/08/17) pentazocine (Unverified Allergy, Unknown, 07/08/17) Uncoded Allergies: maxaquin (Allergy, Severe, unknown, 02/24/12) nausea & vomiting (Allergy, Intermediate, Nausea/Vomiting, 02/27/12) Past Medical History Chronic lumbar and polyarthritic pain with an implanted morphine pump Chronic kidney disease stage III Hypothyroidism Hyperlipidemia Depression Diverticulosis History of colon polyps Pelvic fractures status post fall Moderate to severe Tricuspid Valve Regurgitation History of PSVT Reduced LVEF to 45% past Past Surgical History Bilateral Cataract surgery Bilateral corneal implants Knee replacement Hysterectomy Appendectomy Hip arthroplasty Morphine pump implant . Reported Medications [morphine pump] Levothyroxine (Levothyroxine Sodium) 50 Mcg Tab 50 Mcg PO DAILY Latanoprost Opth Drops (Latanoprost) 0.005% Drops 1 Drop EACH EYE HS Refrigerate until opened. Timolol Opth Drops 0.5 % Soln 1 Drop EACH EYE BID . Current Medications Medications (Trade) Dose Ordered Sig/Balta Route Start Time Stop Time Status Last Admin (Zofran Inj) 4 mg Q6H PRN IV PUSH 07/08/17 23:15 07/11/17 21:27 (Xalatan 0.005% Opth Soln) 1 drop HS EACH EYE 07/09/17 21:00 07/13/17 22:37 (Synthroid) 50 mcg DAILY@0600 PO 07/09/17 09:00 07/10/17 06:40 (Timoptic 0.5% Opth Soln) 1 drop BID EACH EYE 07/09/17 10:00 07/13/17 22:37 (Catapres) 0.1 mg Q6H PRN PO 07/09/17 15:00 Azithromycin 500 mg/Sodium Chloride 250 ml @ 250 mls/hr Q24H IV 07/09/17 15:00 07/13/17 15:52 (Imodium) 2 mg Q6H PRN PO 07/09/17 15:15 07/09/17 15:39 (Tylenol) 650 mg Q6H PRN PO 07/09/17 23:15 07/09/17 23:10 (Ativan Inj) 1 mg Q6H PRN IV PUSH 07/10/17 01:15 07/10/17 08:04 Aztreonam 1000 mg/ Sodium Chloride 100 ml @ 200 mls/hr Q8H IV 07/10/17 12:00 07/14/17 03:40 Multivitamins 10 ml/Folic Acid 1 mg/Amino Acids/ Electrolytes/ Dextrose 2,010.2 ml @ 83 mls/hr Q24H IV 07/11/17 20:00 07/13/17 20:36 Fat Emulsion Intravenous 250 ml @ 10 mls/hr Q24H IV 07/11/17 20:00 07/13/17 20:36 (Vasotec Inj) 1.25 mg Q4H PRN IV PUSH 07/11/17 16:45 07/11/17 21:17 (Catapres-Tts 0.1mg Patch.7d) 1 patch Q7D T-DERMAL 07/11/17 17:00 07/11/17 17:16 Miscellaneous Information 1 Q7D T-DERMAL 07/18/17 17:00 (Protonix Inj) 40 mg Q12H IV PUSH 07/12/17 09:00 07/13/17 20:47 (Morphine Inj) 2 mg Q4H PRN IV PUSH 07/12/17 09:45 07/14/17 05:34 (Duoneb Neb) 1 ampule Q4HR NEB NEB 07/12/17 10:15 07/13/17 19:51 (Duragesic 25 Mcg Patch.72 Hr) 1 patch Q3D T-DERMAL 07/13/17 16:15 07/13/17 16:15 Miscellaneous Information 1 Q3D T-DERMAL 07/16/17 16:15 Family History Father- from a heart attack. . Substance Use Tobacco: No history of smoking/ tobacco use Alcohol: No EtOH use Prescription med abuse: None reported Illicits: None reported . Psychosocial History Patient was born and raised in [place], [place]. Patient and moved to [place] in 1964. She has been to her for 70 years and they have 4 adult children, one daughter and 3 sons. 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 . Spiritual/Cultural Factors Patient is [employer]. . (Nj Machado EMMA) Living Will: Completed, but not made available Durable Power of Tile And Mottle Supervisor: Completed, but not made available Health Care Surrogate(s): Health Care Proxy -Spouse- Randal Rene [phone] . Family/friends goals: Requesting that patient`s implanted Morphine Sulfate pump be refilled. . Ethical and Legal Issues None identified at this time. . (Nj Machdao) Physical Exam Vital Signs Date Time Temp Pulse Resp B/P (MAP) Pulse Ox O2 Delivery O2 Flow Rate FiO2 07/14/17 08:18 98.1 69 20 137/69 (91) 97 07/14/17 04:00 95 Nasal Cannula 2.00 07/14/17 04:00 98.3 70 17 148/68 (94) 94 07/14/17 00:00 98.8 71 17 145/68 (93) 92 07/13/17 20:00 98.0 86 18 150/72 (98) 92 07/13/17 16:31 98.9 70 18 141/84 (103) 93 07/13/17 15:59 97 21 07/13/17 12:08 98.7 65 18 145/75 (98) 94 Exam CONSTITUTIONAL/GENERAL: This is an adequately nourished patient, in no apparent distress or discomfort. TUBES/LINES/DRAINS:PIV, SCDs SKIN: No jaundice, rashes, or lesions. Ecchymoses on upper extremities. No wounds seen anteriorly. Skin temperature appropriate. Not diaphoretic. HEAD: Atraumatic. Normocephalic. EYES: Pupils equal and round and reactive. Extraocular motions intact. No scleral icterus. No injection or drainage. Fundi not examined. ENT: Hard of hearing. Nose without bleeding or purulent drainage. Edentulous.Moist oral mucosa. NECK: Trachea midline. Supple, nontender. CARDIOVASCULAR: Regular rate and rhythm without murmurs, gallops, or rubs. No JVD. Peripheral pulses symmetric. RESPIRATORY/CHEST: Symmetric, unlabored respirations. Clear to auscultation. Diminished breath sounds. No wheezes, rales, or rhonchi. GASTROINTESTINAL: Abdomen soft, non-tender, nondistended. No guarding. Bowel sounds present. GENITOURINARY: Without palpable bladder distension. MUSCULOSKELETAL: Extremities without clubbing, cyanosis, or edema. No joint tenderness or effusion noted. No calf tenderness. No mottling or clubbing. c/o back pain NEUROLOGICAL: Awake, alert and oriented to self, place situation with some confusion. Conversant but POARCH. Motor and sensory grossly within normal limits. Follows commands. Moves all extremities. PSYCHIATRIC: No obvious anxiety/depression. no apparent hallucinations or other psychotic thought process. . (Nj Machado) Diagnostic Tests Laboratory Laboratory Tests Test 07/12/17 07:32 White Blood Count 15.0 TH/MM3 (4.0-11.0) Red Blood Count 3.99 MIL/MM3 (4.00-5.30) Hemoglobin 13.0 GM/DL (11.6-15.3) Hematocrit 38.1 % (35.0-46.0) Mean Corpuscular Volume 95.5 FL (80.0-100.0) Mean Corpuscular Hemoglobin 32.6 PG (27.0-34.0) Mean Corpuscular Hemoglobin Concent 34.2 % (32.0-36.0) Red Cell Distribution Width 13.2 % (11.6-17.2) Platelet Count 306 TH/MM3 (150-450) Mean Platelet Volume 7.0 FL (7.0-11.0) Neutrophils (%) (Auto) 76.1 % (16.0-70.0) Lymphocytes (%) (Auto) 9.9 % (9.0-44.0) Monocytes (%) (Auto) 13.6 % (0.0-8.0) Eosinophils (%) (Auto) 0.2 % (0.0-4.0) Basophils (%) (Auto) 0.2 % (0.0-2.0) Neutrophils # (Auto) 11.4 TH/MM3 (1.8-7.7) Lymphocytes # (Auto) 1.5 TH/MM3 (1.0-4.8) Monocytes # (Auto) 2.0 TH/MM3 (0-0.9) Eosinophils # (Auto) 0.0 TH/MM3 (0-0.4) Basophils # (Auto) 0.0 TH/MM3 (0-0.2) CBC Comment DIFF FINAL Differential Comment Blood Urea Nitrogen 23 MG/DL (7-18) Creatinine 0.72 MG/DL (0.50-1.00) Random Glucose 142 MG/DL (74-106) Calcium Level 8.0 MG/DL (8.5-10.1) Magnesium Level 1.7 MG/DL (1.5-2.5) Sodium Level 133 MEQ/L (136-145) Potassium Level 3.3 MEQ/L (3.5-5.1) Chloride Level 101 MEQ/L (98-107) Carbon Dioxide Level 22.3 MEQ/L (21.0-32.0) Anion Gap 10 MEQ/L (5-15) Estimat Glomerular Filtration Rate 77 ML/MIN (>89) (Nj Machado) Result Diagram: 07/12/17 0732 07/12/17 0732 Imaging Last Impressions Hip and Pelvis X-Ray 07/12/17 0000 Signed Impressions: Service Date/Time: Wednesday, July 12, 2017 13:54 - CONCLUSION: Suspected chronic change as described above. Randal Norton MD Head CT 07/10/17 0000 Signed Impressions: Service Date/Time: Monday, July 10, 2017 20:04 - CONCLUSION: 1. No acute hemorrhage or mass effect. 2. Atrophy and chronic small vessel ischemic change. 3. Suboptimal study secondary to streak and motion artifact. Osvaldo Fuentes MD Chest CT 07/10/17 0000 Signed Impressions: Service Date/Time: Monday, July 10, 2017 20:07 - CONCLUSION: 1. Severe kyphosis with mild scoliosis and deformity of the thorax. 2. No confluent infiltrates or effusions. 3. Small hiatal hernia. Osvaldo Fuentes MD Chest X-Ray 07/09/17 0000 Signed Impressions: Service Date/Time: June 12:11 - CONCLUSION: Mild patchy infiltrate in the left lower lung. Fer Tapia MD Abdomen Ultrasound 07/09/17 0000 Signed Impressions: Service Date/Time: June 18:39 - CONCLUSION: Focal unremarkable sonographic appearance of the abdomen Randal Posey MD Abdomen/Pelvis CT 07/08/172122 Signed Impressions: Service Date/Time: Saturday, July 08, 2017 21:50 - CONCLUSION: 1. No acute CT abnormality in the abdomen or pelvis. 2. 4.0 x 4.2 cm enhancing structure in the expected region of the cervix/distal vagina. This is incompletely evaluated due to streak artifact from adjacent hip arthroplasty. Suspect this represents residual tissue in this patient with the history of hysterectomy. Clinical correlation is recommended. 3. Mild sigmoid diverticulosis. 1. Danny Restrepo MD (Nj Machado) Patient/Family Conference Present at Family Conference: Spouse- Randal Rene [phone] Daughter-Nilsa Perales [phone] Son-Anju Wyatt [phone] . Family Conference Location: Bedside Issues Discussed: * Palliative care role, purpose, approach * Additional medical, psychosocial, and spiritual history * Patients general health, functional status, and cognitive changes in the months leading up to the current hospitalization * Patient/family understanding of the current medical problems * Patient/family understanding of prognosis * Patients goals of care as best understood from advance directives and/or conversations and/or values * Current medical treatment options and benefits/burdens of those options * Likely scenarios comparing ongoing aggressive care with a transition to comfort measures only * Questions answered to the best of my ability * Palliative care contact information provided (Nj Machado) Assessment and Plan Disease Oriented Problem List: (1) Diarrhea (2) Hypothyroid (3) Cough Symptom Scale: (1) Chronic pain Comment: History of chronic pain, patient is an implanted morphine pump. Family concerned that pump may be empty. Pain currently managed with parenteral morphine prn and patient was started on 25 g Fentanyl patch 07/14/17 . (2) Nausea & vomiting Comment: Post-tussive vomiting. Ondansetron HCl 4 mg IV every 6 hours prn . (3) Dysphagia Comment: Reports of patient coughing during meals home. Patient failed swallow evaluation and modified barium swallow evaluation revealed silent aspiration with thin, nectar, and honey thickened consistency liquids. . Pertinent Non-Medical Issues Psychosocial:Patient was born and raised in [place], [place]. Patient and moved to [place] in 1964. She has been to her for 70 years and they have 4 adult children, one daughter and 3 sons. 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 Spiritual: Patient is [employer] Legal: and children stated that patient has POA and living will- no copies made available yet. Encouraged to bring copies to the hospital. Ethical issues impacting care: None identified at this time. . Important Contacts Spouse- Randal Rene [phone] Daughter-Nilsa Perales [phone] Son-Anju Wyatt [phone] Son- Randal Rene Son-Kenn Rene . Prognosis Mrs. 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 Patient was recently in ER on May 10, 2017 for evaluation of a productive cough and was treated with Zithromax Z-Wolfgang. Patient presented to the ER on 07/08/17 complaining of abdominal pain (right upper quadrant tenderness), nausea and bilious vomiting for about 2 hours prior to arriving at the ER. Clinical course complicated with confusion and delirious at night requiring use of Lorazepam, dysphagia, diarrhea and pain. Given ongoing comorbidities, patient remains at high risk for further complications, deterioration and decline. . Code Status: Full Code Plan PLAN: Legal decision maker: Patient is able to make her own medical decisions, however she has had an episode of agitation and confusion and has is forgetful. Recommending joint decision making with her . According to [place] statute, if patient is not able to make her own medical decisions, patient`s Randal Rene will serve as her Healthcare Proxy. Family states that patient has a living will and Power of Tile And Mottle Supervisor papers at home. Encouraged family to bring any advance directives papers they have to the hospital. with the support of daughter and son verbalized that he was patient`s POA. Goals: Aggressive. Patient and family have indicated that they want aggressive care. Updated family on patient's current medical status. Addressed code status, discussed risks, benefits and limitations of CPR given ongoing multiple comorbidities. Patient stated that she wanted to be a full code and wants everything done for her to get a better. Patient's , son and daughter supportive of patient's decision. Patient's family voiced concern that patient' s implanted morphine pump was empty and that they are wondering whether her being in pain is compounding her current medical status. CODE STATUS: Full Code SYMPTOMS: * Chronic pain: History of chronic lumbar and polyarthritic pain, and has an implanted morphine pump. Patients` implanted morphine sulfate pump was supposed to be refilled 06/24/2017 and she missed her appointment. Pain currently managed with parenteral morphine prn and patient was started on 25 g Fentanyl patch 07/14/17. Patient has had x7 Morphine Sulfate prn doses. * Nausea & Vomiting: Post-tussive vomiting. Ondansetron HCl 4 mg IV every 6 hours prn. Currently no complain of nausea though family reporting decreased oral intake. * Dysphagia: Patient failed swallow evaluation and was sent for a modified barium swallow which she failed, showed silent aspiration with thin, nectar and honey consistency liquids. Patient currently NPO. Patient is currently on PPN at 83ml/hr and continuos lipid infusion at 10ml/hr. Patient will probably need a PEG tube . Palliative care will continue to follow the patient during hospital course as condition evolves, to assist patient/decision-maker with understanding of their medical conditions, weighing benefits/burdens of treatment options, for clarification of goals of treatment. Additionally will assist with any symptoms of palliative concern (Nj Machado) Thank you for the opportunity to participate in the care of Ms. Rene. (Nj Machado) Attestation To help prompt me to consider important information that might be impacting today's encounter and assessment, information from prior notes written by myself or my colleagues may have been "brought forward" into today's note. My signature on this note, however, is an attestation that I personally performed the exam, history, and/or decision-making noted today, and, unless otherwise indicated, the interactions with patient, family, and staff as well as the review of records all occurred today. I also attest that the listed assessment and stated plan reflect my best clinical judgment today based on the combination of historical information, prior notes, and today's exam/ interactions. When time spent is documented, it refers only to time spent today by the signer, or if indicated, combined time spent today by collaborating physician/nurse practitioner. . (Nj Machado) Collaborating MD Comments Chart reviewed. Case discussed with palliative care TOOLING SPECIALIST. Above TOOLING SPECIALIST note reviewed and I concur. . (Deon Alarcon MD) Nj Machado Jul 14, 2017 10:45 Deon Alarcon MD Jul 21, 2017 14:50
[2017-07-14 11:06] LABS: BICARBONATE 26.1 MEQ/L (21.0-32.0); CALCIUM 8.5 MG/DL (8.5-10.1); CREATININE 0.54 MG/DL (0.50-1.00); MAGNESIUM 2.1 MG/DL (1.5-2.5)
[2017-07-14] MEDS: AZITHROMYCIN INJ 500 MG in SODIUM CHLOR 0.9% 250 ML INJ 250 ML IV SCH (15:16)
--- NOTE | 2017-07-14 18:38 | HHI.PR ---
Subjective Remarks continued difficulties with generalized pain Objective Vitals Vital Signs Date Time Temp Pulse Resp B/P (MAP) Pulse Ox O2 Delivery O2 Flow Rate FiO2 07/14/17 17:14 97.7 67 20 158/71 (100) 98 07/14/17 11:26 98.1 65 20 144/63 (90) 95 07/14/17 08:18 98.1 69 20 137/69 (91) 97 07/14/17 04:00 95 Nasal Cannula 2.00 07/14/17 04:00 98.3 70 17 148/68 (94) 94 07/14/17 00:00 98.8 71 17 145/68 (93) 92 07/13/17 20:00 98.0 86 18 150/72 (98) 92 07/14/17 07/14/17 07/15/17 15:00 23:00 07:00 Intake Total 1696 ml 250 ml Balance 1696 ml 250 ml Intake Oral 480 ml IV Total 1216 ml 250 ml # Voids 4 # Bowel Movements 0 Result Diagram: 07/14/17 1020 07/14/17 1020 Imaging Last Impressions Chest X-Ray 07/14/17 0800 Signed Impressions: Service Date/Time: Friday, July 14, 2017 09:20 - CONCLUSION: 1. Mild cardiomegaly. 2. Mild increased interstitial markings bilaterally which are nonspecific. Farzad Estrella MD Modified Barium Swallow 07/14/17 0000 Signed Impressions: Service Date/Time: Friday, July 14, 2017 00:00 - CONCLUSION: Please refer to speech pathology report for complete discussion. Jennifer Rneteria MD Hip and Pelvis X-Ray 07/12/17 0000 Signed Impressions: Service Date/Time: Wednesday, July 12, 2017 13:54 - CONCLUSION: Suspected chronic change as described above. Randal Norton MD Head CT 07/10/17 0000 Signed Impressions: Service Date/Time: Monday, July 10, 2017 20:04 - CONCLUSION: 1. No acute hemorrhage or mass effect. 2. Atrophy and chronic small vessel ischemic change. 3. Suboptimal study secondary to streak and motion artifact. Osvaldo Fuentes MD Chest CT 07/10/17 0000 Signed Impressions: Service Date/Time: Monday, July 10, 2017 20:07 - CONCLUSION: 1. Severe kyphosis with mild scoliosis and deformity of the thorax. 2. No confluent infiltrates or effusions. 3. Small hiatal hernia. Osvaldo Fuentes MD Abdomen Ultrasound 07/09/17 0000 Signed Impressions: Service Date/Time: June 18:39 - CONCLUSION: Focal unremarkable sonographic appearance of the abdomen Randal Posey MD Abdomen/Pelvis CT 07/08/173 Signed Impressions: Service Date/Time: Saturday, July 08, 2017 21:50 - CONCLUSION: 1. No acute CT abnormality in the abdomen or pelvis. 2. 4.0 x 4.2 cm enhancing structure in the expected region of the cervix/distal vagina. This is incompletely evaluated due to streak artifact from adjacent hip arthroplasty. Suspect this represents residual tissue in this patient with the history of hysterectomy. Clinical correlation is recommended. 3. Mild sigmoid diverticulosis. 1. Danny Restrepo MD Objective Remarks General: NAD, A&O2 Chest: clear x b/l Cardiac: Regular Abd: +BS, soft ND/NT Ext: No edema A/P Problem List: (1) Cough ICD Codes: R05 - Cough Status: Acute Plan: -Pt is an 86 y/o WF with chronic back pain with Morphine pump implant, hypothyroidism and hyperlipidemia. Pt presented to the ED at [facility] on 07/08/17 with complaints of a cough and episodic post-tussive cough. Her daughter reports that the pt was in her normal state of health up until around 7:00PM last night when she developed a cough. This was not associated with food intake but her daughter reports that the pt does occasionally have issues with choking easily while eating. The pt denies any sore throat, sinus congestion, SOB or palpitations. Cough, new onset, ?aspiration pneumonia Post-tussive vomiting - In the ED there reported that the pts main complaint was that of nausea and vomiting. - CT Abd/pelvis (07/08) --> No acute CT abnormality in the abdomen or pelvis. It did note a 4.0 x 4.2 cm enhancing structure in the expected region of the cervix/distal vagina but this was incompletely evaluated due to streak artifact from adjacent hip arthroplasty, suspect this represents residual tissue in this patient with the history of hysterectomy. - Pts labs at admission noted a normal WBC count. She has been afebrile. - Negative for Influenza - CXR (07/09) --> Mild patchy LLL infiltrate - repeat CXR (07/14/16) - Pt was started on Azithromycin IV for possible pneumonia and Aztreonam was added on 07/10 - Chest CT (07/10) --> Severe kyphosis with mild scoliosis and deformity of the thorax. No confluent infiltrates or effusions. Small hiatal hernia. - Its felt that the pt likely has aspiration pneumonia - repeat ST evaluation (07/13) - upgrade diet to pureed & honey thickened liquids - obtain modified barrium swallow eval - Pt was started on PPN on 07/11 - Modified Barrium Swallow (07/14) --> silent aspiration - diet changed back to NPO - feeding tube? Will d/w family - family meeting rescheduled for tomorrow. fell in parking lot this afternoon. - greatly appreciate input from Palliative team - PT - DVT prophylaxis Diarrhea Abdominal pain - On 07/09 pt had multiple loose stools. Stool was negative for C. diff - Pt was treated recently for bronchitic in 05/2017 with Z-ivan x 2 - Pt was given IVF and antiemetics in the ED. - Cont. IVF as pt not eating or drinking much - Stool culture is pending. - Imodium PRN - Abdominal US (07/09) --> Focal unremarkable sonographic appearance of the abdomen - Protonix 40mg BID - Cont. Antiemetics PRN - Stool studies are negative. Hypothyroidism - Cont. home meds Chronic back pain - Pt has an implanted Morphine pain pump but family is concerned that they medication has run out as the pt had increased back pain last night. - We will provide IV Morphine PRN for pain control. - start duragesic 25mcg transdermal - pain mgmt to evaluate pain pump and refill reservoir if necessary (2) Post-tussive vomiting ICD Codes: R11.10 - Vomiting, unspecified Status: Acute (3) Diarrhea ICD Codes: R19.7 - Diarrhea, unspecified Status: Acute (4) Hypothyroid ICD Codes: E03.9 - Hypothyroid Status: Chronic (5) Chronic pain ICD Codes: G89.29 - Chronic pain Status: Chronic Alexis Ramires DO Jul 14, 2017 18:38
[2017-07-14] MEDS ORDERED: RESP: ALBUTEROL 2.5 MG/IPRATROPIUM 0.5 MG NEB (PRN) NEB STA (18:53)
[2017-07-14] MEDS: CLINIMIX E 4.25/5 2000 mL- >42 mls/hr IV SCH ×3 (20:45)
[2017-07-14] MEDS: FAT EMULSION 20% INJ 250 ML (@10 mls/hr) IV SCH (20:54)
[2017-07-14] MEDS: LATANOPROST 0.005% OPHT SOLN 2.5 ML BTL EACH EYE SCH (21:02)
[2017-07-15] VITALS (9 sets, daily range): BP systolic 121–154; BP diastolic 66–92; PULSE 65–75; RESP 17–20; TEMP 98.1–98.8; O2SAT 94–97
[2017-07-15] MEDS: MORPHINE SULFATE 2 MG/ML INJ IV PUSH PRN ×7 (00:10→23:58)
[2017-07-15] MEDS: LEVOTHYROXINE SODIUM 50 MCG TAB PO SCH (03:31)
[2017-07-15] MEDS: RESP: ALBUTEROL 2.5 MG/IPRATROPIUM 0.5 MG NEB (SCH) NEB ×5 (03:47→19:48)
[2017-07-15] MEDS: AZTREONAM INJ 1,000 MG in SODIUM CHLORIDE 0.9% INJ 100 ML IV SCH ×3 (04:40→20:49)
[2017-07-15] MEDS ORDERED: MORPHINE SULFATE PF 200 MG/20 ML AMP IT ONE (09:00)
[2017-07-15] MEDS: PANTOPRAZOLE SODIUM 40 MG VIAL IV PUSH SCH ×2 (10:29→20:50)
[2017-07-15] MEDS: TIMOLOL MALEATE 0.5% OPHT SOLN 5 ML BTL EACH EYE SCH ×2 (10:30→20:51)
[2017-07-15 11:51] LABS: TROPONIN I LESS THAN 0.02 NG/ML (0.02-0.05)
--- NOTE | 2017-07-15 12:18 | EKG ---
Date Performed: 07/15/2017 Time Performed: 09:33:08 PTAGE: 86 years EKG: Sinus rhythm LOW QRS VOLTAGE IN PRECORDIAL LEADS BORDERLINE ECG PREVIOUS TRACING : 01/25/2015 03.17 DOCTOR: Kane Roberts Interpretating Date/Time 07/15/2017 12:17:40
[2017-07-15] MEDS: AZITHROMYCIN INJ 500 MG in SODIUM CHLOR 0.9% 250 ML INJ 250 ML IV SCH (14:37)
--- NOTE | 2017-07-15 16:10 | HHI.HCPN ---
Reason for visit a. To assist with evaluation and management of symptoms including: Chronic pain, nausea and vomiting and dysphagia. b. To assist medical decision maker(s) with: better understanding of current medical conditions; weighing benefits/burdens of medical treatment options; making medical treatment decisions. (Nj Machado) Subjective/Interval History Mrs. 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 Patient was recently in ER on May 10, 2017 for evaluation of a productive cough and was treated with Zithromax Z-Wolfgang. She presented to the ER on 07/08/17 complaining of abdominal pain (right upper quadrant tenderness), nausea and bilious vomiting for about 2 hours prior to arriving at the ER. Patient seen and examined in her room in the presence of her son Edmundo, daughter in law and 2 grandchildren. Rubia CARTER and Shona ASHBY form Palliative Care also present. Patient is lethargic today and endorsing back pain. Patient stated that, "i don`t feel good". Morphine pump refilled today. Patient`s prn Morphine Sulfate interval changed from 2mg Q 4 hours to every 3 hours. Patient is afebrile. HR 65, BP 154/72 and O2 saturation 97% on RA. Patient remains on PPN. Modified barium swallow evaluation done yesterday- showed silent aspiration with thin, nectar and honey consistency liquids . Patient is currently NPO. Discussed need for a PEG tube placement with Edmundo in person and over telephone with Black (son). Edmundo stated that , they are going to discuss as family regarding what to do. Black stated that he was agreeable with patient getting a PEG tube because he has hopes that patient van be rehabilitated and be able to swallow again. Addressed code status with Edmundo and he did not answer the question but was concerned that patient may be sedated from the Morphine Sulfate IVP she is currently receiving. Unfortunately, phone call was disconnected and was not able to successfully contact him - left message and contact information. Case discussed with Dr. Ramires and bedside RN Kenyon Segovia. . Family/friend interactions Bedside conversation with son Edmundo and telephone conversation with patient`s son Black. . (Nj Machado) Advance Directives Living Will: Completed, but not made available Durable Power of Cardio Clinician: Never completed (Nj Machado) Advance Directive Specifics Health Care Surrogate(s): Health Care Proxy -Spouse- Randal Rene [phone] . (Nj Machado) Objective Vital Signs Date Time Temp Pulse Resp B/P (MAP) Pulse Ox O2 Delivery O2 Flow Rate FiO2 07/15/17 14:43 20 07/15/17 11:55 97 Nasal Cannula 2.00 07/15/17 11:28 98.4 65 20 154/72 (99) 97 07/15/17 09:23 98.6 74 20 133/68 (89) 95 07/15/17 08:17 98.8 75 20 140/66 (90) 95 07/15/17 04:00 98.6 72 17 136/70 (92) 94 07/15/17 00:00 98.1 74 17 143/92 (109) 96 07/14/17 23:58 96 Nasal Cannula 2.00 07/14/17 21:00 Nasal Cannula 2.00 07/14/17 20:00 98.4 76 17 146/73 (97) 95 07/14/17 19:08 99 Nasal Cannula 2.00 07/14/17 17:14 97.7 67 20 158/71 (100) 98 Intake & Output 07/15/17 07/15/17 06:59 18:59 Intake Total 1454 ml Balance 1454 ml IV Total 1454 ml # Voids 3 # Bowel Movements 0 Physical Exam CONSTITUTIONAL/GENERAL: This is an adequately nourished patient, lethargic and in moderate discomfort- complaining of back pain TUBES/LINES/DRAINS:PIV, SCDs SKIN: No jaundice, rashes, or lesions. Ecchymoses on upper extremities. No wounds seen anteriorly. Skin temperature appropriate. Not diaphoretic. HEAD: Atraumatic. Normocephalic. EYES: Pupils equal and round and reactive. Extraocular motions intact. No scleral icterus. No injection or drainage. Fundi not examined. ENT: Hard of hearing. Nose without bleeding or purulent drainage. Edentulous.Moist oral mucosa. NECK: Trachea midline. Supple, nontender. CARDIOVASCULAR: Regular rate and rhythm without murmurs, gallops, or rubs. No JVD. Peripheral pulses symmetric. RESPIRATORY/CHEST: Symmetric, unlabored respirations. Diminished breath sounds. No wheezes, rales, or rhonchi. GASTROINTESTINAL: Abdomen soft, non-tender, nondistended. No guarding. Hypoactive bowel sounds present. GENITOURINARY: Without palpable bladder distension. MUSCULOSKELETAL: Extremities without clubbing, cyanosis, or edema. No joint tenderness or effusion noted. No calf tenderness. No mottling or clubbing. c/o back pain NEUROLOGICAL: Awake, lethargic and oriented to self, place situation with some confusion. Motor and sensory grossly within normal limits. Follows commands. Moves all extremities. PSYCHIATRIC: No obvious anxiety/depression. no apparent hallucinations or other psychotic thought process. . (Nj Machado) Diagnostic Tests Laboratory Laboratory Tests Test 07/14/17 10:20 07/15/17 10:48 White Blood Count 9.4 TH/MM3 (4.0-11.0) Red Blood Count 3.74 MIL/MM3 (4.00-5.30) Hemoglobin 12.4 GM/DL (11.6-15.3) Hematocrit 35.7 % (35.0-46.0) Mean Corpuscular Volume 95.5 FL (80.0-100.0) Mean Corpuscular Hemoglobin 33.0 PG (27.0-34.0) Mean Corpuscular Hemoglobin Concent 34.6 % (32.0-36.0) Red Cell Distribution Width 13.3 % (11.6-17.2) Platelet Count 272 TH/MM3 (150-450) Mean Platelet Volume 7.0 FL (7.0-11.0) Neutrophils (%) (Auto) 67.0 % (16.0-70.0) Lymphocytes (%) (Auto) 14.9 % (9.0-44.0) Monocytes (%) (Auto) 11.2 % (0.0-8.0) Eosinophils (%) (Auto) 6.4 % (0.0-4.0) Basophils (%) (Auto) 0.5 % (0.0-2.0) Neutrophils # (Auto) 6.3 TH/MM3 (1.8-7.7) Lymphocytes # (Auto) 1.4 TH/MM3 (1.0-4.8) Monocytes # (Auto) 1.1 TH/MM3 (0-0.9) Eosinophils # (Auto) 0.6 TH/MM3 (0-0.4) Basophils # (Auto) 0.0 TH/MM3 (0-0.2) CBC Comment DIFF FINAL Differential Comment Blood Urea Nitrogen 26 MG/DL (7-18) Creatinine 0.54 MG/DL (0.50-1.00) Random Glucose 115 MG/DL (74-106) Calcium Level 8.5 MG/DL (8.5-10.1) Magnesium Level 2.1 MG/DL (1.5-2.5) Sodium Level 133 MEQ/L (136-145) Potassium Level 3.9 MEQ/L (3.5-5.1) Chloride Level 99 MEQ/L (98-107) Carbon Dioxide Level 26.1 MEQ/L (21.0-32.0) Anion Gap 8 MEQ/L (5-15) Estimat Glomerular Filtration Rate 107 ML/MIN (>89) Total Creatine Kinase 26 U/L (26-192) Troponin I LESS THAN 0.02 NG/ML (Nj Machado) Result Diagram: 07/14/17 1020 07/14/17 1020 Assessment and Plan Disease Oriented Problem List: (1) Diarrhea (2) Hypothyroid (3) Cough Symptom Scale: (1) Chronic pain Comment: History of chronic pain, patient is an implanted morphine pump. Family concerned that pump may be empty. Pain currently managed with parenteral morphine prn and patient was started on 25 g Fentanyl patch 07/14/17 . (2) Nausea & vomiting Comment: Post-tussive vomiting. Ondansetron HCl 4 mg IV every 6 hours prn . (3) Dysphagia Comment: Reports of patient coughing during meals home. Patient failed swallow evaluation and modified barium swallow evaluation revealed silent aspiration with thin, nectar, and honey thickened consistency liquids. . Pertinent Non-Medical Issues Psychosocial:Patient was born and raised in [place], [place]. Patient and moved to [place] in 1964. She has been to her for 70 years and they have 4 adult children, one daughter and 3 sons. 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 Spiritual: Patient is Buddhist Legal: and children stated that patient has POA and living will- no copies made available yet. Encouraged to bring copies to the hospital. Ethical issues impacting care: None identified at this time. . Important Contacts Spouse- Randal Rene [phone] Daughter-Nilsa Perales [phone] Son-Anju Wyatt [phone] Son- Randal Rene [phone] Son-Kenn [phone] . Prognosis Mrs. 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 Patient was recently in ER on May 10, 2017 for evaluation of a productive cough and was treated with Zithromax Z-Wolfgang. Patient presented to the ER on 07/08/17 complaining of abdominal pain (right upper quadrant tenderness), nausea and bilious vomiting for about 2 hours prior to arriving at the ER. Clinical course complicated with confusion and delirious at night requiring use of Lorazepam, dysphagia, diarrhea and pain. Given ongoing comorbidities, patient remains at high risk for further complications, deterioration and decline. . Code Status: Full Code Plan PLAN: Legal decision maker: Patient is able to participate in her own medical decisions, however she has had an episode of agitation, confusion and is forgetful. Recommending joint decision making with her children. Unfortunately, patient`s is not able to and most likely will not be able to participate in any medical decisions. According to [place] statute, if patient is not able to make her own medical decisions, health care proxy falls to all 4 adult children, Randal Rene, Nilsa Perales, Black Rene and Edmundo Rene. POA forms provided (copy on chart) do not include healthcare decisions. Goals: Aggressive-Family deciding on PEG tube. Discussed need for a PEG tube placement with Edmundo in person and over telephone with Black (son). Edmundo stated that , they are going to discuss as family regarding what to do. Black stated that he was agreeable with patient getting a PEG tube because he has hopes that patient van be rehabilitated and be able to swallow again. Addressed code status with Edmundo and he did not answer the question but was concerned that patient may be sedated from the Morphine Sulfate IVP she is currently receiving. Unfortunately, phone call was disconnected and was not able to successfully contact him - left message and contact information. CODE STATUS: Full Code SYMPTOMS: * Chronic pain: History of chronic lumbar and polyarthritic pain, and has an implanted morphine pump. Patients` implanted morphine sulfate pump was supposed to be refilled 06/24/2017 and she missed her appointment. Pain currently managed with parenteral morphine prn and patient was started on 25 g Fentanyl patch 07/14/17. Dr. Richter`s office saw patient yesterday and refilled implanted pump today 07/15/2017. Patient endorsing worst back pain today. * Nausea & Vomiting: Post-tussive vomiting. Ondansetron HCl 4 mg IV every 6 hours prn. Currently no complain of nausea though family reporting decreased oral intake. Resolved. Currently NPO. * Dysphagia: Patient failed swallow evaluation and was sent for a modified barium swallow which she failed, showed silent aspiration with thin, nectar and honey consistency liquids. Patient currently NPO. Patient is currently on PPN at 83ml/hr and continuos lipid infusion at 10ml/hr. Patient will probably need a PEG tube. Speech therapy following. Palliative care will continue to follow the patient during hospital course as condition evolves, to assist patient/decision-maker with understanding of their medical conditions, weighing benefits/burdens of treatment options, for clarification of goals of treatment. Additionally will assist with any symptoms of palliative concern (Nj Machado) Attestation To help prompt me to consider important information that might be impacting today's encounter and assessment, information from prior notes written by myself or my colleagues may have been "brought forward" into today's note. My signature on this note, however, is an attestation that I personally performed the exam, history, and/or decision-making noted today, and, unless otherwise indicated, the interactions with patient, family, and staff as well as the review of records all occurred today. I also attest that the listed assessment and stated plan reflect my best clinical judgment today based on the combination of historical information, prior notes, and today's exam/ interactions. When time spent is documented, it refers only to time spent today by the signer, or if indicated, combined time spent today by collaborating physician/nurse practitioner. (Nj Machado) Collaborating MD Comments Chart reviewed. Case discussed with palliative care OPERATOR CONTROL ROOM. Above OPERATOR CONTROL ROOM note reviewed and I concur. . (Deon Alarcon MD) Nj Machado Jul 15, 2017 16:10 Deon Alarcon MD Jul 21, 2017 14:56
--- NOTE | 2017-07-15 18:34 | HHI.PR ---
Subjective Remarks Pt more comfortable this evening. Pt's admitted to ICU overnight and reportedly doing poorly. Objective Vitals Vital Signs Date Time Temp Pulse Resp B/P (MAP) Pulse Ox O2 Delivery O2 Flow Rate FiO2 07/15/17 18:02 20 07/15/17 15:52 98.4 71 20 145/68 (93) 97 07/15/17 11:55 97 Nasal Cannula 2.00 07/15/17 11:28 98.4 65 20 154/72 (99) 97 07/15/17 09:23 98.6 74 20 133/68 (89) 95 07/15/17 08:17 98.8 75 20 140/66 (90) 95 07/15/17 04:00 98.6 72 17 136/70 (92) 94 07/15/17 00:00 98.1 74 17 143/92 (109) 96 07/14/17 23:58 96 Nasal Cannula 2.00 07/14/17 21:00 Nasal Cannula 2.00 07/14/17 20:00 98.4 76 17 146/73 (97) 95 07/14/17 19:08 99 Nasal Cannula 2.00 07/15/17 07/15/17 07/16/17 15:00 23:00 07:00 Intake Total 0 ml Output Total 500 ml Balance -500 ml Intake Oral 0 ml Output Urine Total 500 ml # Bowel Movements 0 Result Diagram: 07/14/17 1020 07/14/17 1020 Imaging Last Impressions Chest X-Ray 07/14/17 0800 Signed Impressions: Service Date/Time: Friday, July 14, 2017 09:20 - CONCLUSION: 1. Mild cardiomegaly. 2. Mild increased interstitial markings bilaterally which are nonspecific. Farzad Estrella MD Modified Barium Swallow 07/14/17 0000 Signed Impressions: Service Date/Time: Friday, July 14, 2017 00:00 - CONCLUSION: Please refer to speech pathology report for complete discussion. Jennifer Renteria MD Hip and Pelvis X-Ray 07/12/17 0000 Signed Impressions: Service Date/Time: Wednesday, July 12, 2017 13:54 - CONCLUSION: Suspected chronic change as described above. Randal Norton MD Head CT 07/10/17 0000 Signed Impressions: Service Date/Time: Monday, July 10, 2017 20:04 - CONCLUSION: 1. No acute hemorrhage or mass effect. 2. Atrophy and chronic small vessel ischemic change. 3. Suboptimal study secondary to streak and motion artifact. Osvaldo Fuentes MD Chest CT 07/10/17 0000 Signed Impressions: Service Date/Time: Monday, July 10, 2017 20:07 - CONCLUSION: 1. Severe kyphosis with mild scoliosis and deformity of the thorax. 2. No confluent infiltrates or effusions. 3. Small hiatal hernia. Osvaldo Fuentes MD Abdomen Ultrasound 07/09/17 0000 Signed Impressions: Service Date/Time: June 18:39 - CONCLUSION: Focal unremarkable sonographic appearance of the abdomen Randal Posey MD Abdomen/Pelvis CT [id number] Signed Impressions: Service Date/Time: Saturday, July 08, 2017 21:50 - CONCLUSION: 1. No acute CT abnormality in the abdomen or pelvis. 2. 4.0 x 4.2 cm enhancing structure in the expected region of the cervix/distal vagina. This is incompletely evaluated due to streak artifact from adjacent hip arthroplasty. Suspect this represents residual tissue in this patient with the history of hysterectomy. Clinical correlation is recommended. 3. Mild sigmoid diverticulosis. 1. Danny Restrepo MD Objective Remarks General: NAD, A&O2 Chest: clear x b/l Cardiac: Regular Abd: +BS, soft ND/NT Ext: No edema A/P Problem List: (1) Cough ICD Codes: R05 - Cough Status: Acute Plan: -Pt is an 86 y/o WF with chronic back pain with Morphine pump implant, hypothyroidism and hyperlipidemia. Pt presented to the ED at [facility] on 07/08/17 with complaints of a cough and episodic post-tussive cough. Her daughter reports that the pt was in her normal state of health up until around 7:00PM last night when she developed a cough. This was not associated with food intake but her daughter reports that the pt does occasionally have issues with choking easily while eating. The pt denies any sore throat, sinus congestion, SOB or palpitations. Cough, new onset, ?aspiration pneumonia Post-tussive vomiting - In the ED there reported that the pts main complaint was that of nausea and vomiting. - CT Abd/pelvis (07/08) --> No acute CT abnormality in the abdomen or pelvis. It did note a 4.0 x 4.2 cm enhancing structure in the expected region of the cervix/distal vagina but this was incompletely evaluated due to streak artifact from adjacent hip arthroplasty, suspect this represents residual tissue in this patient with the history of hysterectomy. - Pts labs at admission noted a normal WBC count. She has been afebrile. - Negative for Influenza - CXR (07/09) --> Mild patchy LLL infiltrate - repeat CXR (07/14/16) - Pt was started on Azithromycin IV for possible pneumonia and Aztreonam was added on 07/10 - Chest CT (07/10) --> Severe kyphosis with mild scoliosis and deformity of the thorax. No confluent infiltrates or effusions. Small hiatal hernia. - Its felt that the pt likely has aspiration pneumonia - repeat ST evaluation (07/13) - upgrade diet to pureed & honey thickened liquids - obtain modified barrium swallow eval - Pt was started on PPN on 07/11 - Modified Barrium Swallow (07/14) --> silent aspiration - diet changed back to NPO - feeding tube? Will d/w family - Palliative following, appreciate their input - PT - DVT prophylaxis - pt's admitted to ICU and reportedly doing poorly - continue current treatment plan as outlined above - will try to address code status and possible PEG tube with family tomorrow. - per request, case was d/w pt's son lBack Scruggs and his of [place] . - I addressed questions from . and Mrs. Scruggs regarding pt's guarded prognosis, possible PEG tube, and possible role of rehabilitation PT/ST at Rehab. - They seems satisfied with the discussion. All question were addressed as thoroughly as possible. Diarrhea Abdominal pain - On 07/09 pt had multiple loose stools. Stool was negative for C. diff - Pt was treated recently for bronchitic in 05/2017 with Z-ivan x 2 - Pt was given IVF and antiemetics in the ED. - Cont. IVF as pt not eating or drinking much - Stool culture is pending. - Imodium PRN - Abdominal US (07/09) --> Focal unremarkable sonographic appearance of the abdomen - Protonix 40mg BID - Cont. Antiemetics PRN - Stool studies are negative. Hypothyroidism - Cont. home meds Chronic back pain - Pt has an implanted Morphine pain pump but family is concerned that they medication has run out as the pt had increased back pain last night. - We will provide IV Morphine PRN for pain control. - start duragesic 25mcg transdermal - pain mgmt to evaluate pain pump and refill reservoir if necessary (2) Post-tussive vomiting ICD Codes: R11.10 - Vomiting, unspecified Status: Acute (3) Diarrhea ICD Codes: R19.7 - Diarrhea, unspecified Status: Acute (4) Hypothyroid ICD Codes: E03.9 - Hypothyroid Status: Chronic (5) Chronic pain ICD Codes: G89.29 - Chronic pain Status: Chronic Alexis Ramires DO Jul 15, 2017 18:34
[2017-07-15] MEDS: FAT EMULSION 20% INJ 250 ML (@10 mls/hr) IV SCH (20:49)
[2017-07-15] MEDS: MULTIVITAMIN INJ 5 ML, FOLIC ACID INJ 0.5 MG in AMINO ACID IN D5W W/ELECTROLYT 1,000 ML IV SCH ×3 (20:50)
[2017-07-15] MEDS: LATANOPROST 0.005% OPHT SOLN 2.5 ML BTL EACH EYE SCH (20:51)
[2017-07-16] VITALS (8 sets, daily range): BP systolic 100–128; BP diastolic 56–72; PULSE 70–83; RESP 16–19; TEMP 97.3–99.2; O2SAT 94–100
[2017-07-16] MEDS: RESP: ALBUTEROL 2.5 MG/IPRATROPIUM 0.5 MG NEB (SCH) NEB ×3 (00:19→08:00)
[2017-07-16] MEDS: LEVOTHYROXINE SODIUM 50 MCG TAB PO SCH (04:23)
[2017-07-16] MEDS: AZTREONAM INJ 1,000 MG in SODIUM CHLORIDE 0.9% INJ 100 ML IV SCH ×3 (04:24→23:00)
[2017-07-16] MEDS: MULTIVITAMIN INJ 5 ML, FOLIC ACID INJ 0.5 MG in AMINO ACID IN D5W W/ELECTROLYT 1,000 ML IV SCH ×6 (09:04→20:14)
[2017-07-16] MEDS: PANTOPRAZOLE SODIUM 40 MG VIAL IV PUSH SCH ×2 (10:19→23:00)
[2017-07-16] MEDS: TIMOLOL MALEATE 0.5% OPHT SOLN 5 ML BTL EACH EYE SCH ×2 (10:20→21:00)
--- NOTE | 2017-07-16 15:30 | HHI.PR ---
Subjective Remarks Pt appears less alert and responsive today. Pt does open her eyes to commands and will speak a few words. Pt was able to identify her granddaughter at the bedside. Objective Vitals Vital Signs Date Time Temp Pulse Resp B/P (MAP) Pulse Ox O2 Delivery O2 Flow Rate FiO2 07/16/17 14:45 97.5 70 16 113/57 (75) 97 07/16/17 12:00 98.3 74 16 103/57 (72) 97 07/16/17 10:19 Nasal Cannula 2.00 07/16/17 08:28 94 Nasal Cannula 2.00 07/16/17 08:00 98.1 74 16 100/56 (71) 97 07/16/17 05:31 97.3 79 18 124/63 (83) 96 07/16/17 01:18 98.7 78 18 128/63 (84) 94 07/15/17 20:52 98.6 72 18 121/87 (98) 95 07/15/17 20:30 Nasal Cannula 2.00 07/15/17 19:50 94 Nasal Cannula 2.00 07/15/17 18:02 20 07/15/17 15:52 98.4 71 20 145/68 (93) 97 Result Diagram: 07/14/17 1020 07/14/17 1020 Imaging Last Impressions Chest X-Ray 07/14/17 0800 Signed Impressions: Service Date/Time: Friday, July 14, 2017 09:20 - CONCLUSION: 1. Mild cardiomegaly. 2. Mild increased interstitial markings bilaterally which are nonspecific. Farzad Estrella MD Modified Barium Swallow 07/14/17 0000 Signed Impressions: Service Date/Time: Friday, July 14, 2017 00:00 - CONCLUSION: Please refer to speech pathology report for complete discussion. Jennifer Renteria MD Hip and Pelvis X-Ray 07/12/17 0000 Signed Impressions: Service Date/Time: Wednesday, July 12, 2017 13:54 - CONCLUSION: Suspected chronic change as described above. Randal Norton MD Head CT 07/10/17 0000 Signed Impressions: Service Date/Time: Monday, July 10, 2017 20:04 - CONCLUSION: 1. No acute hemorrhage or mass effect. 2. Atrophy and chronic small vessel ischemic change. 3. Suboptimal study secondary to streak and motion artifact. Osvaldo Fuentes MD Chest CT 07/10/17 0000 Signed Impressions: Service Date/Time: Monday, July 10, 2017 20:07 - CONCLUSION: 1. Severe kyphosis with mild scoliosis and deformity of the thorax. 2. No confluent infiltrates or effusions. 3. Small hiatal hernia. Osvaldo Fuentes MD Abdomen Ultrasound 07/09/17 0000 Signed Impressions: Service Date/Time: June 18:39 - CONCLUSION: Focal unremarkable sonographic appearance of the abdomen Randal Posey MD Abdomen/Pelvis CT [id number] Signed Impressions: Service Date/Time: Saturday, July 08, 2017 21:50 - CONCLUSION: 1. No acute CT abnormality in the abdomen or pelvis. 2. 4.0 x 4.2 cm enhancing structure in the expected region of the cervix/distal vagina. This is incompletely evaluated due to streak artifact from adjacent hip arthroplasty. Suspect this represents residual tissue in this patient with the history of hysterectomy. Clinical correlation is recommended. 3. Mild sigmoid diverticulosis. 1. Danny Restrepo MD Objective Remarks General: NAD, A&O2 Chest: clear x b/l Cardiac: Regular Abd: +BS, soft ND/NT Ext: No edema A/P Problem List: (1) Cough ICD Codes: R05 - Cough Status: Acute Plan: -Pt is an 86 y/o WF with chronic back pain with Morphine pump implant, hypothyroidism and hyperlipidemia. Pt presented to the ED at [facility] [place] on 07/08/17 with complaints of a cough and episodic post-tussive cough. Her daughter reports that the pt was in her normal state of health up until around 7:00PM last night when she developed a cough. This was not associated with food intake but her daughter reports that the pt does occasionally have issues with choking easily while eating. The pt denies any sore throat, sinus congestion, SOB or palpitations. Cough, new onset, ?aspiration pneumonia Post-tussive vomiting - In the ED there reported that the pts main complaint was that of nausea and vomiting. - CT Abd/pelvis (07/08) --> No acute CT abnormality in the abdomen or pelvis. It did note a 4.0 x 4.2 cm enhancing structure in the expected region of the cervix/distal vagina but this was incompletely evaluated due to streak artifact from adjacent hip arthroplasty, suspect this represents residual tissue in this patient with the history of hysterectomy. - Pts labs at admission noted a normal WBC count. She has been afebrile. - Negative for Influenza - CXR (07/09) --> Mild patchy LLL infiltrate - repeat CXR (07/14/16) - Pt was started on Azithromycin IV for possible pneumonia and Aztreonam was added on 07/10 - Chest CT (07/10) --> Severe kyphosis with mild scoliosis and deformity of the thorax. No confluent infiltrates or effusions. Small hiatal hernia. - Its felt that the pt likely has aspiration pneumonia - repeat ST evaluation (07/13) - upgrade diet to pureed & honey thickened liquids - obtain modified barrium swallow eval - Pt was started on PPN on 07/11 - Modified Barrium Swallow (07/14) --> silent aspiration - diet changed back to NPO - feeding tube? Will d/w family - Palliative following, appreciate their input - PT - DVT prophylaxis - pt's admitted to ICU and reportedly doing poorly - continue current treatment plan as outlined above - (07/15/17) per request, case was d/w pt's son Black Scruggs and his of [place] . - I addressed questions from and Mrs. Scruggs regarding pt's guarded prognosis, possible PEG tube, and possible role of rehabilitation PT/ST at Rehab. - They seems satisfied with the discussion. All question were addressed as thoroughly as possible. - (07/16/17) - pt appears less responsive from 07/15/17 - I discussed case with granddaughter at bedside - I discussed case with pt's son, Edmundo, by phone. - Edmundo requested Ms. Rene code status be changed to DNR. I agree - Case d/w Dr. Alarcon, Palliative Care. - Since no POA, Palliative will verify with adult children that there is a consensus for DNR Diarrhea Abdominal pain - On 07/09 pt had multiple loose stools. Stool was negative for C. diff - Pt was treated recently for bronchitic in 05/2017 with Z-ivan x 2 - Pt was given IVF and antiemetics in the ED. - Cont. IVF as pt not eating or drinking much - Stool culture is pending. - Imodium PRN - Abdominal US (07/09) --> Focal unremarkable sonographic appearance of the abdomen - Protonix 40mg BID - Cont. Antiemetics PRN - Stool studies are negative. Hypothyroidism - Cont. home meds Chronic back pain - Pt has an implanted Morphine pain pump but family is concerned that they medication has run out as the pt had increased back pain last night. - We will provide IV Morphine PRN for pain control. - start duragesic 25mcg transdermal - pain mgmt to evaluate pain pump and refill reservoir if necessary (2) Post-tussive vomiting ICD Codes: R11.10 - Vomiting, unspecified Status: Acute (3) Diarrhea ICD Codes: R19.7 - Diarrhea, unspecified Status: Acute (4) Hypothyroid ICD Codes: E03.9 - Hypothyroid Status: Chronic (5) Chronic pain ICD Codes: G89.29 - Chronic pain Status: Chronic Assessment and Plan I again met with family at approximately 5PM. Patient`s children Randal Rene, Edmundo Rene and Nilsa Perales were at meeting at the pt's bedside. Ms. Jeannette CARTER from Palliative Medicine team was also present. Several unsuccessful attempts were made to reach pt's other adult son Black Rene of [place] by phone. All children present requested DNR status. All children present expressed agreement that they did NOT want feeding tube. All children present requested Hospice Consult. It was agreed that likely cessation of TPN would be readdressed 07/17/17. Alexis Ramires DO Jul 16, 2017 15:30
[2017-07-16] MEDS: fentaNYL 25 MCG/HR PATCH T-DERMAL SCH (15:51)
[2017-07-16] MEDS: REMOVE OLD DURAGESIC (FENTANYL) PATCH T-DERMAL SCH ×2 (15:51→19:29)
[2017-07-16] MEDS: AZITHROMYCIN INJ 500 MG in SODIUM CHLOR 0.9% 250 ML INJ 250 ML IV SCH (15:52)
--- NOTE | 2017-07-16 18:07 | HHI.HCPN ---
Reason for visit a. To assist with evaluation and management of symptoms including: Chronic pain,and dysphagia. b. To assist medical decision maker(s) with: better understanding of current medical conditions; weighing benefits/burdens of medical treatment options; making medical treatment decisions. Subjective/Interval History Mrs. 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 Patient was recently in ER on May 10, 2017 for evaluation of a productive cough and was treated with Zithromax Z-Wolfgang. She presented to the ER on 07/08/17 complaining of abdominal pain (right upper quadrant tenderness), nausea and bilious vomiting for about 2 hours prior to arriving at the ER. Patient seen and examined in her room in the presence of her granddaughter. Requested granddaughter to call patient`s children to come in and discuss goals of care for patient. Patient very sleepy, but easily arousable. Intermittently falling asleep during visit. She is able to answer simple questions but does not seem to completely comprehend her current medical condition and at this point presenting lack of insight in regards to weighting burdens and benefits of treatment. Patient denying pain today. Vital signs Temp 97.5 degrees F, Pulse 70, RR16, O2 saturation 97% on room air. No recent laboratory workup and imaging. Case discussed with Dr Ramires and bedside RN. 1700hrs Patient`s children Randal Anju, Edmundo Rene and Nilsa Perales at bedside and [address] Ramires also present and addressing conference with family. Family updated on patient`s medical status. Edmundo attempted to contact Black Rene patients other son so that he can be included in family conference but there was no response. Discussed code status, all three children Edmundo Tee and Nilsa agreed to make patient a DNR. Discussed whether family wants to pursue with PEG tube placement and all 3 children do not want patient to have a PEG tube placed. Patient`s children voiced concern that all they want now for their mother is comfort measures only. Introduced hospice philosophy and benefits. Majority of the children, Edmundo Tee and Nilsa states that they want hospice consulted. . Family/friend interactions Family conference with patient`s children Randal Rene, Edmundo Rene and Nilas Perales at bedside and [address] Ramires present. Attempted to contact other son Black Rene via telephone with no success. . Advance Directives Living Will: Completed, but not made available Durable Power of [employer]: Never completed Advance Directive Specifics Health Care Surrogate(s): Health Care Proxy -Spouse- Randal Rene [phone] . Objective Vital Signs Date Time Temp Pulse Resp B/P (MAP) Pulse Ox O2 Delivery O2 Flow Rate FiO2 07/16/17 14:45 97.5 70 16 113/57 (75) 97 07/16/17 12:00 98.3 74 16 103/57 (72) 97 07/16/17 10:19 Nasal Cannula 2.00 07/16/17 08:28 94 Nasal Cannula 2.00 07/16/17 08:00 98.1 74 16 100/56 (71) 97 07/16/17 05:31 97.3 79 18 124/63 (83) 96 07/16/17 01:18 98.7 78 18 128/63 (84) 94 07/15/17 20:52 98.6 72 18 121/87 (98) 95 07/15/17 20:30 Nasal Cannula 2.00 07/15/17 19:50 94 Nasal Cannula 2.00 07/15/17 18:02 20 Intake & Output 07/16/17 07/16/17 07:00 19:00 Intake Total 2450 ml Output Total 1000 ml Balance 1450 ml IV Total 2450 ml Output Urine Total 1000 ml Physical Exam CONSTITUTIONAL/GENERAL: This is an adequately nourished patient,sleepy and denying pain. TUBES/LINES/DRAINS:PIV, SCDs SKIN: No jaundice, rashes, or lesions. Ecchymoses on upper extremities. No wounds seen anteriorly. Skin temperature appropriate. Not diaphoretic. HEAD: Atraumatic. Normocephalic. EYES: Pupils equal and round and reactive. Extraocular motions intact. No scleral icterus. No injection or drainage. Fundi not examined. ENT: Hard of hearing. Nose without bleeding or purulent drainage. Edentulous.Moist oral mucosa. NECK: Trachea midline. Supple, nontender. CARDIOVASCULAR: Regular rate and rhythm without murmurs, gallops, or rubs. No JVD. Peripheral pulses symmetric. RESPIRATORY/CHEST: Symmetric, unlabored respirations. Diminished breath sounds. No wheezes, rales, or rhonchi. GASTROINTESTINAL: Abdomen soft, non-tender, nondistended. No guarding. Hypoactive bowel sounds present. GENITOURINARY: Without palpable bladder distension. MUSCULOSKELETAL: Extremities without clubbing, cyanosis, or edema. No joint tenderness or effusion noted. No calf tenderness. No mottling or clubbing. c/o back pain NEUROLOGICAL: Very sleepy, arousable. Oriented to person, place with some confusion. Motor and sensory grossly within normal limits. Follows commands. Moves all extremities. PSYCHIATRIC: No obvious anxiety/depression. no apparent hallucinations or other psychotic thought process. . Diagnostic Tests Laboratory Laboratory Tests Test 07/14/17 10:20 07/15/17 10:48 White Blood Count 9.4 TH/MM3 (4.0-11.0) Red Blood Count 3.74 MIL/MM3 (4.00-5.30) Hemoglobin 12.4 GM/DL (11.6-15.3) Hematocrit 35.7 % (35.0-46.0) Mean Corpuscular Volume 95.5 FL (80.0-100.0) Mean Corpuscular Hemoglobin 33.0 PG (27.0-34.0) Mean Corpuscular Hemoglobin Concent 34.6 % (32.0-36.0) Red Cell Distribution Width 13.3 % (11.6-17.2) Platelet Count 272 TH/MM3 (150-450) Mean Platelet Volume 7.0 FL (7.0-11.0) Neutrophils (%) (Auto) 67.0 % (16.0-70.0) Lymphocytes (%) (Auto) 14.9 % (9.0-44.0) Monocytes (%) (Auto) 11.2 % (0.0-8.0) Eosinophils (%) (Auto) 6.4 % (0.0-4.0) Basophils (%) (Auto) 0.5 % (0.0-2.0) Neutrophils # (Auto) 6.3 TH/MM3 (1.8-7.7) Lymphocytes # (Auto) 1.4 TH/MM3 (1.0-4.8) Monocytes # (Auto) 1.1 TH/MM3 (0-0.9) Eosinophils # (Auto) 0.6 TH/MM3 (0-0.4) Basophils # (Auto) 0.0 TH/MM3 (0-0.2) CBC Comment DIFF FINAL Differential Comment Blood Urea Nitrogen 26 MG/DL (7-18) Creatinine 0.54 MG/DL (0.50-1.00) Random Glucose 115 MG/DL (74-106) Calcium Level 8.5 MG/DL (8.5-10.1) Magnesium Level 2.1 MG/DL (1.5-2.5) Sodium Level 133 MEQ/L (136-145) Potassium Level 3.9 MEQ/L (3.5-5.1) Chloride Level 99 MEQ/L (98-107) Carbon Dioxide Level 26.1 MEQ/L (21.0-32.0) Anion Gap 8 MEQ/L (5-15) Estimat Glomerular Filtration Rate 107 ML/MIN (>89) Total Creatine Kinase 26 U/L (26-192) Troponin I LESS THAN 0.02 NG/ML Result Diagram: 07/14/17 1020 07/14/17 1020 Assessment and Plan Disease Oriented Problem List: (1) Diarrhea (2) Hypothyroid (3) Cough Symptom Scale: (1) Chronic pain Comment: History of chronic pain, patient is an implanted morphine pump. Family concerned that pump may be empty. Pain currently managed with parenteral morphine prn and patient was started on 25 g Fentanyl patch 07/14/17 . (2) Nausea & vomiting Comment: Post-tussive vomiting. Ondansetron HCl 4 mg IV every 6 hours prn . (3) Dysphagia Comment: Reports of patient coughing during meals home. Patient failed swallow evaluation and modified barium swallow evaluation revealed silent aspiration with thin, nectar, and honey thickened consistency liquids. . Pertinent Non-Medical Issues Psychosocial:Patient was born and raised in [place], [place]. Patient and moved to [place] in 1964. She has been to her for 70 years and they have 4 adult children, one daughter and 3 sons. 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 Spiritual: Patient is [employer]: and children stated that patient has POA and living will- no copies made available yet. Encouraged to bring copies to the hospital. Ethical issues impacting care: None identified at this time. . Important Contacts Spouse- Randal Rene [phone] Daughter-Nilsa Perales [phone] Son-Anju Wyatt [phone] Son- Randal Rene [phone] Son-Kenn [phone] . Prognosis Mrs. 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 Patient was recently in ER on May 10, 2017 for evaluation of a productive cough and was treated with Zithromax Z-Wolfgang. Patient presented to the ER on 07/08/17 complaining of abdominal pain (right upper quadrant tenderness), nausea and bilious vomiting for about 2 hours prior to arriving at the ER. Clinical course complicated with confusion and delirious at night requiring use of Lorazepam, dysphagia, diarrhea and pain. Given ongoing comorbidities, patient remains at high risk for further complications, deterioration and decline. . Code Status: No Code Plan PLAN: Legal decision maker: Patient does not seem to have an understanding of her illness, she seems to be unable to weigh benefits and burdens of treatment and is currently very lethargic to even participate in conversation regarding her medical care. Unfortunately, patient`s is not able to and most likely will not be able to participate in any medical decisions. According to [place] statute, if patient is not able to make her own medical decisions, health care proxy falls to all 4 adult children, Randal Rene, Nilsa Perales, Black Rene and Edmundo Rene. POA forms provided (copy on chart) do not include healthcare decisions. Goals: Comfort care, Hospice consult placed per majority of children -3/4. CODE STATUS: DNR 1700hrs Patient`s children Randal Rene, Edmundo Rene and Nilsa Perales at bedside and [address] Ramires also present and addressing conference with family. Family updated on patient`s medical status. Edmundo attempted to contact Black Rene patients other son so that he can be included in family conference but there was no response. Discussed code status, all three children Edmundo Tee and Nilsa agreed to make patient a DNR. Discussed whether family wants to pursue with PEG tube placement and all 3 children do not want patient to have a PEG tube placed. Patient`s children voiced concern that all they want now for their mother is comfort measures only. Introduced hospice philosophy and benefits. Majority of the children, Edmundo Tee and Nilsa states that they want hospice consulted. . SYMPTOMS: * Chronic pain: History of chronic lumbar and polyarthritic pain, and has an implanted morphine pump. Patients` implanted morphine sulfate pump was supposed to be refilled 06/24/2017 and she missed her appointment. Pain currently managed with parenteral morphine prn and patient was started on 25 g Fentanyl patch 07/14/17. Dr. Richter`s office saw patient yesterday and refilled implanted pump today 07/15/2017. Patient denying pain today but very sleepy. * Nausea & Vomiting: Post-tussive vomiting. Ondansetron HCl 4 mg IV every 6 hours prn. Currently no complain of nausea though family reporting decreased oral intake. Resolved. Currently NPO. * Dysphagia: Patient failed swallow evaluation and was sent for a modified barium swallow which she failed, showed silent aspiration with thin, nectar and honey consistency liquids. Patient currently NPO. Patient is currently on PPN at 83ml/hr and continuos lipid infusion at 10ml/hr. Patient will probably need a PEG tube. Speech therapy following. Palliative care will continue to follow the patient during hospital course as condition evolves, to assist patient/decision-maker with understanding of their medical conditions, weighing benefits/burdens of treatment options, for clarification of goals of treatment. Additionally will assist with any symptoms of palliative concern Nj Machado Jul 16, 2017 18:07
[2017-07-16] MEDS: FAT EMULSION 20% INJ 250 ML (@10 mls/hr) IV SCH (20:00)
[2017-07-16] MEDS: LATANOPROST 0.005% OPHT SOLN 2.5 ML BTL EACH EYE SCH (21:00)
[2017-07-16] MEDS: RESP: ALBUTEROL 2.5 MG/IPRATROPIUM 0.5 MG NEB (PRN) NEB (21:12)
[2017-07-17] VITALS (7 sets, daily range): BP systolic 103–120; BP diastolic 56–61; PULSE 72–82; RESP 16–19; TEMP 97.9–98.8; O2SAT 92–97
[2017-07-17] MEDS: LEVOTHYROXINE SODIUM 50 MCG TAB PO SCH (04:27)
[2017-07-17] MEDS: AZTREONAM INJ 1,000 MG in SODIUM CHLORIDE 0.9% INJ 100 ML IV SCH ×3 (05:10→20:00)
[2017-07-17] MEDS: MULTIVITAMIN INJ 5 ML, FOLIC ACID INJ 0.5 MG in AMINO ACID IN D5W W/ELECTROLYT 1,000 ML IV SCH ×6 (08:28→20:28)
[2017-07-17] MEDS: PANTOPRAZOLE SODIUM 40 MG VIAL IV PUSH SCH ×2 (08:29→21:00)
[2017-07-17] MEDS: TIMOLOL MALEATE 0.5% OPHT SOLN 5 ML BTL EACH EYE SCH ×2 (08:34→21:00)
[2017-07-17] MEDS: AZITHROMYCIN INJ 500 MG in SODIUM CHLOR 0.9% 250 ML INJ 250 ML IV SCH (15:12)
--- NOTE | 2017-07-17 17:36 | HHI.PR ---
Subjective Remarks Pt opens her eyes to command. Pt is able to recognize family members. Pt is able to speak an occasional sentence. Objective Vitals Vital Signs Date Time Temp Pulse Resp B/P (MAP) Pulse Ox O2 Delivery O2 Flow Rate FiO2 07/17/17 12:00 98.1 77 16 109/59 (76) 96 07/17/17 08:35 Nasal Cannula 2.00 Humidified 07/17/17 08:00 98.0 72 16 112/56 (74) 97 07/17/17 05:00 98.5 74 19 103/57 (72) 96 07/17/17 00:30 98.8 79 19 107/61 (76) 95 07/16/17 21:13 98 Nasal Cannula 2.00 07/16/17 20:30 99.2 83 19 117/72 (87) 100 07/16/17 19:00 Nasal Cannula 2.00 21 Humidified Result Diagram: 07/14/17 1020 07/14/17 1020 Imaging Last Impressions Chest X-Ray 07/14/17 0800 Signed Impressions: Service Date/Time: Friday, July 14, 2017 09:20 - CONCLUSION: 1. Mild cardiomegaly. 2. Mild increased interstitial markings bilaterally which are nonspecific. Farzad Estrella MD Modified Barium Swallow 07/14/17 0000 Signed Impressions: Service Date/Time: Friday, July 14, 2017 00:00 - CONCLUSION: Please refer to speech pathology report for complete discussion. Jennifer Renteria MD Hip and Pelvis X-Ray 07/12/17 0000 Signed Impressions: Service Date/Time: Wednesday, July 12, 2017 13:54 - CONCLUSION: Suspected chronic change as described above. Randal Norton MD Head CT 07/10/17 0000 Signed Impressions: Service Date/Time: Monday, July 10, 2017 20:04 - CONCLUSION: 1. No acute hemorrhage or mass effect. 2. Atrophy and chronic small vessel ischemic change. 3. Suboptimal study secondary to streak and motion artifact. Osvaldo Fuentes MD Chest CT 07/10/17 0000 Signed Impressions: Service Date/Time: Monday, July 10, 2017 20:07 - CONCLUSION: 1. Severe kyphosis with mild scoliosis and deformity of the thorax. 2. No confluent infiltrates or effusions. 3. Small hiatal hernia. Osvaldo Fuentes MD Abdomen Ultrasound 07/09/17 0000 Signed Impressions: Service Date/Time: June 18:39 - CONCLUSION: Focal unremarkable sonographic appearance of the abdomen Randal Posey MD Abdomen/Pelvis CT 07/08/173 Signed Impressions: Service Date/Time: Saturday, July 08, 2017 21:50 - CONCLUSION: 1. No acute CT abnormality in the abdomen or pelvis. 2. 4.0 x 4.2 cm enhancing structure in the expected region of the cervix/distal vagina. This is incompletely evaluated due to streak artifact from adjacent hip arthroplasty. Suspect this represents residual tissue in this patient with the history of hysterectomy. Clinical correlation is recommended. 3. Mild sigmoid diverticulosis. 1. Danny Restrepo MD Objective Remarks General: NAD, A&O2 Chest: clear x b/l Cardiac: Regular Abd: +BS, soft ND/NT Ext: No edema A/P Problem List: (1) Cough ICD Codes: R05 - Cough Status: Acute Plan: -Pt is an 86 y/o WF with chronic back pain with Morphine pump implant, hypothyroidism and hyperlipidemia. [place] [facility] [place] with complaints of a cough and episodic post-tussive cough. Her daughter reports that the pt was in her normal state of health up until around 7:00PM last night when she developed a cough. This was not associated with food intake but her daughter reports that the pt does occasionally have issues with choking easily while eating. The pt denies any sore throat, sinus congestion, SOB or palpitations. Cough, new onset, ?aspiration pneumonia Post-tussive vomiting - In the ED there reported that the pts main complaint was that of nausea and vomiting. - CT Abd/pelvis (07/08) --> No acute CT abnormality in the abdomen or pelvis. It did note a 4.0 x 4.2 cm enhancing structure in the expected region of the cervix/distal vagina but this was incompletely evaluated due to streak artifact from adjacent hip arthroplasty, suspect this represents residual tissue in this patient with the history of hysterectomy. - Pts labs at admission noted a normal WBC count. She has been afebrile. - Negative for Influenza - CXR (07/09) --> Mild patchy LLL infiltrate - repeat CXR (07/14/16) - Pt was started on Azithromycin IV for possible pneumonia and Aztreonam was added on 07/10 - Chest CT (07/10) --> Severe kyphosis with mild scoliosis and deformity of the thorax. No confluent infiltrates or effusions. Small hiatal hernia. - Its felt that the pt likely has aspiration pneumonia - repeat ST evaluation (07/13) - upgrade diet to pureed & honey thickened liquids - obtain modified barrium swallow eval - Pt was started on PPN on 07/11 - Modified Barrium Swallow (07/14) --> silent aspiration - diet changed back to NPO - feeding tube? Will d/w family - Palliative following, appreciate their input - PT - DVT prophylaxis - pt's admitted to ICU and reportedly doing poorly - continue current treatment plan as outlined above - (07/15/17) per request, case was d/w pt's son Black Scruggs and his of [place] . - I addressed questions from Mr. and Mrs. Scruggs regarding pt's guarded prognosis, possible PEG tube, and possible role of rehabilitation PT/ST at Rehab. - They seems satisfied with the discussion. All question were addressed as thoroughly as possible. - (07/16/17) - pt appears less responsive from 07/15/17 - I discussed case with granddaughter at bedside - I discussed case with pt's son, Edmundo, by phone. - Edmundo requested Ms. Rene code status be changed to DNR. I agree - Case d/w Dr. Alarcon, Palliative Care. - Since no POA, Palliative will verify with adult children that there is a consensus for DNR - (07/17/17) - met with pt and all four of her children at the bedside: Randal Rene, Edmundo Rene, Nilsa Perales, and Black Scruggs - Mr. Black Scruggs prsent Palliative Team, Ms. Nj CARTER with legal papers indicating that he is POA. - Mr. Black Scruggs agrees to continue DNR status - conversation (07/17) did NOT address possibility of PEG tube, stopping TPN , or hospice - will attempt to meet with family further tomorrow Diarrhea Abdominal pain - On 07/09 pt had multiple loose stools. Stool was negative for C. diff - Pt was treated recently for bronchitic in 05/2017 with Z-ivan x 2 - Pt was given IVF and antiemetics in the ED. - Cont. IVF as pt not eating or drinking much - Stool culture is pending. - Imodium PRN - Abdominal US (07/09) --> Focal unremarkable sonographic appearance of the abdomen - Protonix 40mg BID - Cont. Antiemetics PRN - Stool studies are negative. Hypothyroidism - Cont. home meds Chronic back pain - We will provide IV Morphine PRN for pain control. - duragesic 25mcg transdermal - Pain mgmt refilled pain pump (2) Post-tussive vomiting ICD Codes: R11.10 - Vomiting, unspecified Status: Acute (3) Diarrhea ICD Codes: R19.7 - Diarrhea, unspecified Status: Acute (4) Hypothyroid ICD Codes: E03.9 - Hypothyroid Status: Chronic (5) Chronic pain ICD Codes: G89.29 - Chronic pain Status: Chronic Alexis Ramires DO Jul 17, 2017 17:36
[2017-07-17] MEDS ORDERED: BISACODYL 10 MG SUPP RECTAL ONE (19:00)
[2017-07-17] MEDS: FAT EMULSION 20% INJ 250 ML (@10 mls/hr) IV SCH (20:00)
--- NOTE | 2017-07-17 20:22 | HHI.HCPN ---
Reason for visit a. To assist with evaluation and management of symptoms including: Chronic pain,and dysphagia. b. To assist medical decision maker(s) with: better understanding of current medical conditions; weighing benefits/burdens of medical treatment options; making medical treatment decisions. Subjective/Interval History Mrs. 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 Patient was recently in ER on May 10, 2017 for evaluation of a productive cough and was treated with Zithromax Z-Wolfgang. She presented to the ER on 07/08/17 complaining of abdominal pain (right upper quadrant tenderness), nausea and bilious vomiting for about 2 hours prior to arriving at the ER. Patient seen and examined in the room in the presence of 2 [id number]. Patient awake, lethargic. Patient is not verbalizing much even if family reports that she has been very alert and conversant in the past few minutes. Patient oriented to place, was able to state that he is in the hospital downstairs. She was able to state her birthday but could not recall her age. Patient unable to tell time, and explain her medical situation. Patient is very forgetful. Patient endorsing back pain today. Vital signs stable. Remains on PPN and lipids infusion. Patient was unable to participate in speech therapy session at 1220 hrs because of lethargy and minimal responsiveness. No recent laboratory workup and imaging. Case discussed with Dr Ramires and bedside RN. Patient's son Black arrived today, provided DURABLE POWER OF DAIRY FEED MIXING OPERATOR for [employer] [facility], which names patient's spouse Randal PattersonSr shelton as patient's healthcare surrogate and Black Scruggs -son is alternate healthcare surrogate. Currently patient's spouse Randal Scruggs is hospitalized, intubated and on mechanical ventilation. Randal Scruggs Sr he is not able to participate in patient's medical decision making which leaves Black Scruggs to make medical decisions for patient. Met with the patient's son Black Scruggs at bedside, with 3 other patients adult children, daughter in-laws, Dr. Ramires, Shona Carreon-high school social studies tutor with palliative care and Shelby Leroy RN. Patient's son Black explained to patient what was going on with her , in less than 1 minute patient was not able to recall what her that son had told her. Given patient's forgetfulness, lack of insight and ability to weigh burdens and benefits of treatments,it would be for patient's past interest to have her son Black Scruggs assist with making medical decisions for his mother. Discussed patient's code status with Black Townsendgers and he wants patient to be a DNR. Black Rene would like some time to discuss with his siblings regarding decision with PEG tube placement or transitioning patient to comfort care only through hospice services. Family/friend interactions Patient's son Black arrived today, provided DURABLE POWER OF DAIRY FEED MIXING OPERATOR for healthcare papers, which names patient's spouse Randal Scruggs as patient's healthcare surrogate and Black Scruggs -son is alternate healthcare surrogate. Currently patient's spouse Randal Scruggs Sr is hospitalized, intubated and on mechanical ventilation. Randal Scruggs Sr he is not able to participate in patient's medical decision making which leaves Black Scruggs to make medical decisions for patient. Met with the patient's son Black cSruggs at bedside, with 3 other patients adult children, daughter in-laws, Dr. Ramires, Shona Carreon-high school social studies tutor with palliative care and Shelby Archuleta pot builder. Patient's son Black explained to patient what was going on with her , in less than 1 minute patient was not able to recall what her that son had told her. Given patient's forgetfulness, lack of insight and ability to weigh burdens and benefits of treatments,it would be for patient's past interest to have her son Black Scruggs assist with making medical decisions for his mother. Discussed patient's code status with Black Rebecca TownsendRene and he wants patient to be a DNR. Black Rene would like some time to discuss with his siblings regarding decision with PEG tube placement. . Advance Directives Living Will: Never completed Health Care Surrogate: Completed, but not made available Durable Power of Horticultural Worker: Completed, but not made available Advance Directive Specifics Date completed: 02/11/2007 . Health Care Surrogate(s): Health Care Surrogate -Spouse- Randal Rene [phone] Alternate Health Care Surrogate-Son- Black Rene [phone] . Documented care wishes: No living will. . Significant change in goals: None -family will discuss whether they will proceed with PEG placement or hospice. . Objective Vital Signs Date Time Temp Pulse Resp B/P (MAP) Pulse Ox O2 Delivery O2 Flow Rate FiO2 07/17/17 16:00 98.0 72 16 120/56 (77) 92 07/17/17 12:00 98.1 77 16 109/59 (76) 96 07/17/17 08:35 Nasal Cannula 2.00 Humidified 07/17/17 08:00 98.0 72 16 112/56 (74) 97 07/17/17 05:00 98.5 74 19 103/57 (72) 96 07/17/17 00:30 98.8 79 19 107/61 (76) 95 07/16/17 21:13 98 Nasal Cannula 2.00 07/16/17 20:30 99.2 83 19 117/72 (87) 100 Physical Exam CONSTITUTIONAL/GENERAL: This is an adequately nourished patient,awake with minimal verbal response, endorsing back pain TUBES/LINES/DRAINS:PIV, SCDs SKIN: No jaundice, rashes, or lesions. Ecchymoses on upper extremities. No wounds seen anteriorly. Skin temperature appropriate. Not diaphoretic. HEAD: Atraumatic. Normocephalic. EYES: Pupils equal and round and reactive. Extraocular motions intact. No scleral icterus. No injection or drainage. Fundi not examined. ENT: Hard of hearing. Nose without bleeding or purulent drainage. Edentulous.Moist oral mucosa. NECK: Trachea midline. Supple, nontender. CARDIOVASCULAR: Regular rate and rhythm without murmurs, gallops, or rubs. No JVD. Peripheral pulses symmetric. RESPIRATORY/CHEST: Symmetric, unlabored respirations. Diminished breath sounds. No wheezes, rales, or rhonchi. GASTROINTESTINAL: Abdomen soft, non-tender, nondistended. No guarding. Hypoactive bowel sounds present. GENITOURINARY: Without palpable bladder distension. MUSCULOSKELETAL: Extremities without clubbing, cyanosis, or edema. No joint tenderness or effusion noted. No calf tenderness. No mottling or clubbing. c/o back pain NEUROLOGICAL: Awake, minimal verbal response. Oriented to person, place with forgetfulness. Motor and sensory grossly within normal limits. Follows commands. Moves all extremities. PSYCHIATRIC: No obvious anxiety/depression. no apparent hallucinations or other psychotic thought process. . Diagnostic Tests Laboratory Laboratory Tests Test 07/15/17 10:48 Total Creatine Kinase 26 U/L (26-192) Troponin I LESS THAN 0.02 NG/ML Result Diagram: 07/14/17 1020 07/14/17 1020 Assessment and Plan Disease Oriented Problem List: (1) Diarrhea (2) Hypothyroid (3) Cough Symptom Scale: (1) Chronic pain Comment: History of chronic pain, patient is an implanted morphine pump. Family concerned that pump may be empty. Pain currently managed with parenteral morphine prn and patient was started on 25 g Fentanyl patch 07/14/17 . (2) Nausea & vomiting Comment: Post-tussive vomiting. Ondansetron HCl 4 mg IV every 6 hours prn . (3) Dysphagia Comment: Reports of patient coughing during meals home. Patient failed swallow evaluation and modified barium swallow evaluation revealed silent aspiration with thin, nectar, and honey thickened consistency liquids. . Pertinent Non-Medical Issues Psychosocial:Patient was born and raised in [place], [place]. Patient and moved to [place] in 1964. She has been to her for 70 years and they have 4 adult children, one daughter and 3 sons. 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 Spiritual: Patient is Worship Legal: Patient has a DPOA for healthcare Ethical issues impacting care: None identified at this time. . Important Contacts Spouse- Anju Randal [phone] Son-Kenn [phone] Daughter-Nilsa Perales [phone] Son-Anju Wyatt [phone] Son- Randal Rene [phone] . Prognosis Mrs. 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 Patient was recently in ER on May 10, 2017 for evaluation of a productive cough and was treated with Zithromax Z-Wolfgang. Patient presented to the ER on 07/08/17 complaining of abdominal pain (right upper quadrant tenderness), nausea and bilious vomiting for about 2 hours prior to arriving at the ER. Clinical course complicated with confusion and delirious at night requiring use of Lorazepam, dysphagia, diarrhea and pain. Given ongoing comorbidities, patient remains at high risk for further complications, deterioration and decline. . Code Status: No Code Plan PLAN: Legal decision maker: Patient does not seem to have an understanding of her illness, she seems to be unable to weigh benefits and burdens of treatment and is currently lethargic to even participate in conversation regarding her medical care. Patient has Durable Power of Horticultural Worker for Healthcare which names patient's spouse Randal Scruggs Sr as patient's healthcare surrogate and Black Scruggs -son is alternate healthcare surrogate. Currently patient's spouse Randal Scruggs Sr is hospitalized, intubated and on mechanical ventilation and is not able to participate in patient's medical decision making which leaves Black Scruggs (son) to make medical decisions for patient. Goals: Aggressive short of no code- Black Rene would like some time to discuss with his siblings regarding decision with PEG tube placement or transitioning patient to comfort care only through hospice services. CODE STATUS: DNR Met with the patient's son Black Scruggs at bedside, with 3 other patients adult children, daughter in-laws, Dr. Ramires, Shona Carreon-high school social studies tutor with palliative care and Shelby Leroy RN. Patient's son Black explained to patient what was going on with her , in less than 1 minute patient was not able to recall what her that son had told her. Given patient's forgetfulness, lack of insight and ability to weigh burdens and benefits of treatments,it would be for patient's past interest to have her son Black Scruggs assist with making medical decisions for his mother. Discussed patient's code status with Black Rene and he wants patient to be a DNR. Black Rene would like some time to discuss with his siblings regarding decision with PEG tube placement or transitioning patient to comfort care only through hospice services. SYMPTOMS: * Chronic pain: History of chronic lumbar and polyarthritic pain, and has an implanted morphine pump. Patients` implanted morphine sulfate pump was supposed to be refilled 06/24/2017 and she missed her appointment. Pain currently managed with parenteral morphine prn and patient was started on 25 g Fentanyl patch 07/14/17. Dr. Richter`s office saw patient yesterday and refilled implanted pump today 07/15/2017. Patient endorsing back pain today. * Nausea & Vomiting: Post-tussive vomiting. Ondansetron HCl 4 mg IV every 6 hours prn. Currently no complain of nausea though family reporting decreased oral intake. Resolved. Currently NPO. * Dysphagia: Patient failed swallow evaluation and was sent for a modified barium swallow which she failed, showed silent aspiration with thin, nectar and honey consistency liquids. Patient currently NPO. Patient is currently on PPN at 83ml/hr and continuos lipid infusion at 10ml/hr. Patient will probably need a PEG tube. Speech therapy following. Patient was unable to participate in Speech therapy today after daughter reported to therapist that patient had been unresponsive. Palliative care will continue to follow the patient during hospital course as condition evolves, to assist patient/decision-maker with understanding of their medical conditions, weighing benefits/burdens of treatment options, for clarification of goals of treatment. Additionally will assist with any symptoms of palliative concern Attestation To help prompt me to consider important information that might be impacting today's encounter and assessment, information from prior notes written by myself or my colleagues may have been "brought forward" into today's note. My signature on this note, however, is an attestation that I personally performed the exam, history, and/or decision-making noted today, and, unless otherwise indicated, the interactions with patient, family, and staff as well as the review of records all occurred today. I also attest that the listed assessment and stated plan reflect my best clinical judgment today based on the combination of historical information, prior notes, and today's exam/ interactions. When time spent is documented, it refers only to time spent today by the signer, or if indicated, combined time spent today by collaborating physician/nurse practitioner. Nj Machado Jul 17, 2017 20:22
[2017-07-17] MEDS: LATANOPROST 0.005% OPHT SOLN 2.5 ML BTL EACH EYE SCH (21:00)
[2017-07-17] MEDS: RESP: ALBUTEROL 2.5 MG/IPRATROPIUM 0.5 MG NEB (PRN) NEB (22:20)
[2017-07-18] VITALS: BP 110/57; PULSE 85; RESP 18; TEMP 97.6; O2SAT 95
[2017-07-18] MEDS: LEVOTHYROXINE SODIUM 50 MCG TAB PO SCH (04:48)
[2017-07-18] MEDS: AZTREONAM INJ 1,000 MG in SODIUM CHLORIDE 0.9% INJ 100 ML IV SCH ×2 (05:05→11:59)
[2017-07-18 05:45] VITALS: BP 114/58; PULSE 79; RESP 18; TEMP 98.3; O2SAT 95
[2017-07-18 08:00] VITALS: BP 109/58; PULSE 73; RESP 17; TEMP 97.6; O2SAT 97
[2017-07-18] MEDS: MULTIVITAMIN INJ 5 ML, FOLIC ACID INJ 0.5 MG in AMINO ACID IN D5W W/ELECTROLYT 1,000 ML IV SCH ×3 (08:43)
[2017-07-18] MEDS: TIMOLOL MALEATE 0.5% OPHT SOLN 5 ML BTL EACH EYE SCH (08:45)
[2017-07-18] MEDS: PANTOPRAZOLE SODIUM 40 MG VIAL IV PUSH SCH (08:47)
[2017-07-18 09:47] VITALS: O2SAT 93
[2017-07-18 12:00] VITALS: BP 104/52; PULSE 62; RESP 18; TEMP 97.5; O2SAT 97
[2017-07-18] MEDS: AZITHROMYCIN INJ 500 MG in SODIUM CHLOR 0.9% 250 ML INJ 250 ML IV SCH (15:31)
[2017-07-18] MEDS ORDERED: MORP10IN9 IV PUSH (15:40)
[2017-07-18] MEDS ORDERED: FENT25T T-DERMAL (15:40)
[2017-07-18] MEDS ORDERED: Albuterol-Ipratropium Neb NEB (15:40)
[2017-07-18] MEDS ORDERED: LORazepam INJ IV PUSH (15:40)
[2017-07-18 16:00] VITALS: BP 106/53; PULSE 62; RESP 18; TEMP 97.5; O2SAT 95
[2017-07-18 16:44] LABS: AUTOMATED NEUTROPHIL # 3.7 TH/MM3 (1.8-7.7); BASOPHIL % 0.5 % (0.0-2.0); EOSINOPHIL # 0.4 TH/MM3 (0-0.4); EOSINOPHIL % 7.1 % (0.0-4.0); HEMATOCRIT 31.6 % (35.0-46.0); HEMOGLOBIN 10.8 GM/DL (11.6-15.3); LYMPH % 16.2 % (9.0-44.0); MEAN CELL VOLUME 94.5 FL (80.0-100.0); MEAN CORPUSCULAR HEMOGLOBIN 32.4 PG (27.0-34.0); MEAN CORPUSCULAR HGB CONC 34.2 % (32.0-36.0); MEAN PLATELET VOLUME 6.7 FL (7.0-11.0); NEUT % 60.2 % (16.0-70.0); PLATELET COUNT 292 TH/MM3 (150-450); RED BLOOD COUNT 3.35 MIL/MM3 (4.00-5.30); RED CELL DISTRIBUTION WIDTH 13.3 % (11.6-17.2); WHITE BLOOD COUNT 6.1 TH/MM3 (4.0-11.0)
[2017-07-18] MEDS ORDERED: REMOVE OLD PATCH T-DERMAL SCH (17:00)
[2017-07-18] MEDS: cloNIDine HCL 0.1 MG/24 HR PATCH T-DERMAL SCH (17:00)
--- NOTE | 2017-07-18 17:04 | HHI.DS ---
Discharge Summary Admission Date Jul 09, 2017 at 14:55 Discharge Date: Jul 18, 2017 Admitting Diagnosis cough, vomiting, diarrhea. (1) Cough Diagnosis: Principal ICD Codes: R05 - Cough Status: Acute (2) Post-tussive vomiting Diagnosis: Principal ICD Codes: R11.10 - Vomiting, unspecified Status: Acute (3) Diarrhea Diagnosis: Principal ICD Codes: R19.7 - Diarrhea, unspecified Status: Acute (4) Chronic pain Diagnosis: Principal ICD Codes: G89.29 - Chronic pain Status: Chronic (5) Hypothyroid Diagnosis: Secondary ICD Codes: E03.9 - Hypothyroid Status: Chronic Consultants Dr. Alarcon, Palliative Medicine Dr. Richter, Pain Management Brief History Mrs. Rene is a pleasant 86 y/o WF with chronic back pain with Morphine pump implant, hypothyroidism and hyperlipidemia. Pt presented to the ED at [facility] on with complaints of a cough and episodic post-tussive cough. Her daughter provides the majority of the history and she reports that the pt was in her normal state of health up until around 7:00PM last night when she developed a cough. This was not associated with food intake but her daughter reports that the pt does occasionally have issues with choking easily while eating. The pt denies any sore throat, sinus congestion, SOB or palpitations. In the ED there reported that the pts main complaint was that of nausea and vomiting. a CT Abd/ pelvis was ordered which did not she any acute CT abnormality in the abdomen or pelvis. It did note a 4.0 x 4.2 cm enhancing structure in the expected region of the cervix/distal vagina but this was incompletely evaluated due to streak artifact from adjacent hip arthroplasty, suspect this represents residual tissue in this patient with the history of hysterectomy. Pts labs at admission noted a normal WBC count. She has been afebrile. Nursing staff reports that the pt did have some diarrhea overnight and stools were sent for C. diff. The pt has had two BMs since 0700 this morning. The first one was reportedly more formed but the second one was more loose. Pts daughter reports that in late April 2017 the pt was treated for a presumed bronchitis with a Z-ivan x 2. The pt has not had any diarrhea up until last night. She has reportedly been having soft normal BMs. The pt has not had any vomiting overnight and family who has been at bedside since this morning said that the pt isn't really coughing much this morning so far. But she does states that the pt is not acting like her normal self in that she is usually very active and upbeat. Pt has not been interacting much and does not seem to want to move much out of med and her daughter states that this is very unusual for her. Pt complains of some mild abdominal discomfort on the right side of the abdomen but unable to describe this pain to me at all. Stool studies for C. diff are pending. Pt was given IVF and antiemetics in the ED overnight. CBC/BMP: 07/18/17 1543 07/14/17 1020 Significant Findings Laboratory Tests Test 07/18/17 15:43 Red Blood Count 3.35 MIL/MM3 (4.00-5.30) Hemoglobin 10.8 GM/DL (11.6-15.3) Hematocrit 31.6 % (35.0-46.0) Mean Platelet Volume 6.7 FL (7.0-11.0) Monocytes (%) (Auto) 16.0 % (0.0-8.0) Eosinophils (%) (Auto) 7.1 % (0.0-4.0) Monocytes # (Auto) 1.0 TH/MM3 (0-0.9) Imaging Last Impressions Chest X-Ray 07/14/17 0800 Signed Impressions: Service Date/Time: Friday, July 14, 2017 09:20 - CONCLUSION: 1. Mild cardiomegaly. 2. Mild increased interstitial markings bilaterally which are nonspecific. Farzad Estrella MD Modified Barium Swallow 07/14/17 0000 Signed Impressions: Service Date/Time: Friday, July 14, 2017 00:00 - CONCLUSION: Please refer to speech pathology report for complete discussion. Jennifer Renteria MD Hip and Pelvis X-Ray 07/12/17 0000 Signed Impressions: Service Date/Time: Wednesday, July 12, 2017 13:54 - CONCLUSION: Suspected chronic change as described above. Randal Norton MD Head CT 07/10/17 0000 Signed Impressions: Service Date/Time: Monday, July 10, 2017 20:04 - CONCLUSION: 1. No acute hemorrhage or mass effect. 2. Atrophy and chronic small vessel ischemic change. 3. Suboptimal study secondary to streak and motion artifact. Osvaldo Fuentes MD Chest CT 07/10/17 0000 Signed Impressions: Service Date/Time: Monday, July 10, 2017 20:07 - CONCLUSION: 1. Severe kyphosis with mild scoliosis and deformity of the thorax. 2. No confluent infiltrates or effusions. 3. Small hiatal hernia. Osvaldo Fuentes MD Abdomen Ultrasound 07/09/17 0000 Signed Impressions: Service Date/Time: June 18:39 - CONCLUSION: Focal unremarkable sonographic appearance of the abdomen Randal Posey MD Abdomen/Pelvis CT [id number]/08/[id number] Signed Impressions: Service Date/Time: Saturday, July 08, 2017 21:50 - CONCLUSION: 1. No acute CT abnormality in the abdomen or pelvis. 2. 4.0 x 4.2 cm enhancing structure in the expected region of the cervix/distal vagina. This is incompletely evaluated due to streak artifact from adjacent hip arthroplasty. Suspect this represents residual tissue in this patient with the history of hysterectomy. Clinical correlation is recommended. 3. Mild sigmoid diverticulosis. 1. Danny Restrepo MD PE at Discharge General: NAD, A&O2 Chest: clear x b/l Cardiac: Regular Abd: +BS, soft ND/NT Ext: No edema Hospital Course (1) Cough ICD Codes: R05 - Cough Status: Acute Plan: -Pt is an 86 y/o WF with chronic back pain with Morphine pump implant, hypothyroidism and hyperlipidemia. Pt presented to the ED at [facility] on 07/08/17 with complaints of a cough and episodic post-tussive cough. Her daughter reports that the pt was in her normal state of health up until around 7:00PM last night when she developed a cough. This was not associated with food intake but her daughter reports that the pt does occasionally have issues with choking easily while eating. The pt denies any sore throat, sinus congestion, SOB or palpitations. Cough, new onset, ?aspiration pneumonia Post-tussive vomiting - In the ED there reported that the pts main complaint was that of nausea and vomiting. - CT Abd/pelvis (07/08) --> No acute CT abnormality in the abdomen or pelvis. It did note a 4.0 x 4.2 cm enhancing structure in the expected region of the cervix/distal vagina but this was incompletely evaluated due to streak artifact from adjacent hip arthroplasty, suspect this represents residual tissue in this patient with the history of hysterectomy. - Pts labs at admission noted a normal WBC count. She has been afebrile. - Negative for Influenza - CXR (07/09) --> Mild patchy LLL infiltrate - repeat CXR (07/14/16) - Pt was started on Azithromycin IV for possible pneumonia and Aztreonam was added on 07/10 - Chest CT (07/10) --> Severe kyphosis with mild scoliosis and deformity of the thorax. No confluent infiltrates or effusions. Small hiatal hernia. - Pt has aspiration pneumonia - repeat ST evaluation (07/13) - upgrade diet to pureed & honey thickened liquids - obtain modified barrium swallow eval - Pt was started on PPN on 07/11 - Modified Barrium Swallow (07/14) --> silent aspiration - diet changed back to NPO - feeding tube? Will d/w family - Palliative following, appreciate their input - PT - DVT prophylaxis - pt's admitted to ICU and reportedly doing poorly - continue current treatment plan as outlined above - (07/15/17) per request, case was d/w pt's son Black Scruggs and his of [place] . - I addressed questions from Mr. and Mrs. Scruggs regarding pt's guarded prognosis, possible PEG tube, and possible role of rehabilitation PT/ST at Rehab. - They seems satisfied with the discussion. All question were addressed as thoroughly as possible. - (07/16/17) - pt appears less responsive from 07/15/17 - I discussed case with granddaughter at bedside - I discussed case with pt's son, Edmundo, by phone. - Edmundo requested Ms. Rene code status be changed to DNR. I agree - Case d/w Dr. Alarcon, Palliative Care. - Since no POA, Palliative will verify with adult children that there is a consensus for DNR - (07/17/17) - met with pt and all four of her children at the bedside: Randal Rene, Edmundo Rene, Nilsa Perales, and Black Kael - Mr. Black Scruggs prsent Palliative Team, Ms. Nj CARTER with legal papers indicating that he is POA. - Mr. Black Scruggs agrees to continue DNR status - conversation (07/17) did NOT address possibility of PEG tube, stopping TPN , or hospice - will attempt to meet with family further tomorrow - (07/18/17) - Pt's overnight - Pt/family/POA requesting hospice services - Hospice met with pt/family/POA - Pt will discharge to hospice care center this evening Diarrhea Abdominal pain - On 07/09 pt had multiple loose stools. Stool was negative for C. diff - Pt was treated recently for bronchitic in 05/2017 with Z-ivan x 2 - Pt was given IVF and antiemetics in the ED. - Cont. IVF as pt not eating or drinking much - Stool culture is pending. - Imodium PRN - Abdominal US (07/09) --> Focal unremarkable sonographic appearance of the abdomen - Protonix 40mg BID - Cont. Antiemetics PRN - Stool studies are negative. Hypothyroidism - Cont. home meds Chronic back pain - We will provide IV Morphine PRN for pain control. - duragesic 25mcg transdermal - Pain mgmt refilled pain pump (2) Post-tussive vomiting ICD Codes: R11.10 - Vomiting, unspecified Status: Acute (3) Diarrhea ICD Codes: R19.7 - Diarrhea, unspecified Status: Acute (4) Hypothyroid ICD Codes: E03.9 - Hypothyroid Status: Chronic (5) Chronic pain ICD Codes: G89.29 - Chronic pain Status: Chronic Pt Condition on Discharge: Deteriorating Discharge Disposition: Hospice/Med Facility Discharge Instructions DIET: Follow Instructions for: As Tolerated, No Restrictions Speech Therapy-Diet Recommends: Other Activities you can perform: Weight Bearing as Jose New Medications: Fentanyl (Duragesic) 25 Mcg/Hour Patch.td72 1 PATCH T-DERMAL Q3D for Pain Management for 7 Days, PATCH 0 Refills Morphine Sulfate (Morphine Sulfate) 2 Mg/Ml Syringe 2 MG IV PUSH Q3H PRN for pain 2-10 for 3 Days, SYRINGE 0 Refills [Albuterol-Ipratropium Neb] () 1 AMPULE NEBU 1 AMPULE NEB Q2HR NEB PRN for sob/wheezing for 7 Days [LORazepam INJ] () 2 MG/ML INJ 1 MG IV PUSH Q6H PRN for AGITATION for 7 Days Continued Medications: Latanoprost Opth Drops (Latanoprost Opth Drops) 0.005% Drops 1 DROP EACH EYE HS for Glaucoma, #2.5 ML 0 Refills Refrigerate until opened. Levothyroxine (Levothyroxine) 50 Mcg Tab 50 MCG PO DAILY for Thyroid, #30 TAB 0 Refills Timolol Opth Drops (Timolol Opth Drops) 0.5 % Soln 1 DROP EACH EYE BID for Glaucoma, #1 BOTTLE 0 Refills [morphine pump] () Alexis Ramires DO Jul 18, 2017 17:04
--- NOTE | 2017-07-18 17:05 | HHI.DCPOC ---
Discharge Care Plan Diagnosis: (1) Silent aspiration (2) Chronic pain Goals to Promote Your Health * To prevent worsening of your condition and complications * To maintain your health at the optimal level Directions to Meet Your Goals Take your medications as prescribed Follow your dietary instruction Follow activity as directed Keep your appointments as scheduled Take your immunizations and boosters as scheduled If your symptoms worsen call your PCP, if no PCP go to Urgent Care Center or Emergency Room Smoking is Dangerous to Your Health. Avoid second hand smoke Call the 24-hour hour crisis hotline for domestic abuse at Alexis Ramires DO Jul 18, 2017 17:05
[2017-07-18 17:06] LABS: ALBUMIN 1.9 GM/DL (3.4-5.0); ALT (GPT) 17 U/L (10-53); AST (GOT) 25 U/L (15-37); BLOOD UREA NITROGEN 31 MG/DL (7-18); CALCIUM 8.8 MG/DL (8.5-10.1); CHLORIDE 92 MEQ/L (98-107); CREATININE 0.56 MG/DL (0.50-1.00); GLOMERULAR FILTRATION RATE 102 ML/MIN (>89); GLUCOSE,RANDOM 106 MG/DL (74-106); MAGNESIUM 2.1 MG/DL (1.5-2.5); SODIUM (NA) 129 MEQ/L (136-145)
[2017-07-18 17:09] LABS: ALKALINE PHOSPHATASE 53 U/L (45-117); TOTAL BILIRUBIN ADULT 0.3 MG/DL (0.2-1.0); TOTAL PROTEIN 6.3 GM/DL (6.4-8.2)
== END 2017-07-18 19:23 | disposition hospice, inpatient (51) | DRG 178 ==
LOC: NEPC 20:16 → NEDA 23:06 → NEPHCDU 23:57 → OBSVTOIN 07-09 14:55 → N05B 07-09 16:41
PROVIDERS: ADMIT Hospitalist; ATTEND Hospitalist
PROC: 3E0F7GC Introduction of Other Therapeutic Substance into Respiratory Tract, Via Natural or Artificial Opening (ICD-10-PCS; principal; 2017-07-09)
DX: J69.0 Pneumonitis due to inhalation of food and vomit (principal); F05 Delirium due to known physiological condition; N18.3 Chronic kidney disease, stage 3 (moderate); I07.1 Rheumatic tricuspid insufficiency; M41.9 Scoliosis, unspecified; R13.10 Dysphagia, unspecified; R11.2 Nausea with vomiting, unspecified; F32.9 Major depressive disorder, single episode, unspecified; E03.9 Hypothyroidism, unspecified; G89.29 Other chronic pain; K57.30 Diverticulosis of large intestine without perforation or abscess without bleeding; M54.9 Dorsalgia, unspecified; M47.9 Spondylosis, unspecified; E78.5 Hyperlipidemia, unspecified; H40.9 Unspecified glaucoma; H91.90 Unspecified hearing loss, unspecified ear; M43.16 Spondylolisthesis, lumbar region; Z86.010 Personal history of colon polyps; Z96.649 Presence of unspecified artificial hip joint; Z96.659 Presence of unspecified artificial knee joint; Z90.710 Acquired absence of both cervix and uterus; Z51.5 Encounter for palliative care; K44.9 Diaphragmatic hernia without obstruction or gangrene; Z66 Do not resuscitate
CPT/HCPCS: 62369; 70450; 71020; 71046; 71250; 73502; 74177; 74230; 76700; 76937; 80048; 80053; 81001; 82550; 82948; 83690; 83735; 84484; 85025; 87493; 87506; 87804; 93005; 94640; 94664; 96361; 96374; 96375; C9113; G0378; J0456; J0780; J2060; J2270; J2274; J2405; J3480; J7030; J7040; J7050; P9612; Q9967